=== PATIENT | female | born 1950 | race Caucasian/White ===

== ENCOUNTER 2018-05-16 10:36 | Outpatient (CLI) | payer OTHER, SELFPAY ==
--- NOTE | 2018-05-16 10:26 | DI.RAD_ITS ---
SYMPTOM/DIAGNOSIS: RECURRENT AND PERSISTENT LOW BACK PAIN LUMBAR SPINE: There are five lumbar type vertebral bodies. The vertebral bodies are well maintained in height. No disc space narrowing is seen. There are small endplate osteophytes, greatest at L 2-3 and L 3-4. No spondylolysis or spondylolisthesis is seen. There is mild spurring at both SI joints. There is spina bifida occulta at S 1. IMPRESSION: Mild degenerative changes.
== END 2018-05-16 10:56 ==
PROVIDERS: PCP Family Medicine; Visit Provider Student in an Organized Health Care Education/Training Program
DX: M54.5 Low back pain (principal); M47.816 Spondylosis without myelopathy or radiculopathy, lumbar region
CPT/HCPCS: 72110

== ENCOUNTER 2018-07-10 12:17 | Outpatient (REF) | payer OTHER, SELFPAY ==
--- NOTE | 2018-07-10 11:30 | PAPFT_PTH ---
PATIENT: Sanjuana Belle LOC: [facility] U#:[id number] AGE/SX: 67/F ROOM: RE07/10/[address]: Racquel Nevarez MD, DC : 1950 BED: DIS: 07/10/2018 SPEC #: [id number] RECD: 07/10/18 12:48 STATUS: GRAZYNA REQ #: [id number] BRANDEE: 07/10/18 11:[address]: Racquel Nevarez DEPT: [facility] Cytology RECD BY: Siobhan Dunn Tissues: 1 - CX/ENDOCX FOR PAP SMEARS Procedures: PAP THIN PREP/UVM Screening HPV DNA PROBE Comments: [id number]
== END 2018-07-10 12:37 ==
LOC: LBN 12:17
PROVIDERS: PCP Family Medicine; Visit Provider Family Medicine
DX: Z12.4 Encounter for screening for malignant neoplasm of cervix (principal); Z11.51 Encounter for screening for human papillomavirus (HPV)
CPT/HCPCS: 88142; 87624

== ENCOUNTER 2018-07-12 01:53 | Outpatient (CLI) | payer OTHER, SELFPAY ==
--- NOTE | 2018-07-12 12:30 | DI.MAMMO_ITS ---
SYMPTOM/DIAGNOSIS: SCREENING Z12.31 BILATERAL SCREENING MAMMOGRAM: Mammograms were interpreted according to the usual protocol including computer analysis with CAD system, tomosynthesis and C view imaging. Comparison is made with exams from 2013 through 2017. The breasts are composed of scattered fibroglandular densities, breast density category B. No suspicious masses or suspicious microcalcifications are seen. There has been no significant change. IMPRESSION: Category 1-B, negative mammogram. Yearly screening mammography is recommended. [facility] ASSESSMENT OF FINDINGS: Negative. Category 1. Patient will receive a letter notifying them of these results. BI-RADS category B. There are scattered areas of fibroglandular density.
== END 2018-07-12 02:13 ==
PROVIDERS: PCP Family Medicine; Visit Provider Family Medicine
DX: Z12.31 Encounter for screening mammogram for malignant neoplasm of breast (principal)
CPT/HCPCS: 77063; 77067

== ENCOUNTER 2020-09-28 12:20 | Observation (INO) | payer MEDICARE, SELFPAY ==
[2020-09-28] VITALS (7 sets, daily range): BP systolic 82–155; BP diastolic 37–77; PULSE 74–90; RESP 12–21; TEMP 36.1–36.6; O2SAT 95–99
--- NOTE | 2020-09-28 12:30 | DI.CT_ITS ---
EXAM: CT ABDOMEN PELVIS W CLINICAL HISTORY: RLQ pain, diarrhea. TECHNIQUE: Imaging Protocol: Axial computed tomography images with coronal and sagittal reformatted images were created and reviewed CONTRAST MATERIAL: Intravenous: Omnipaque 350 Contrast volume:100 ml Oral: no COMPARISON: US ABDOMEN ULTRASOUND (P) from 09/30/2010 US ABDOMEN ULTRASOUND (P) from 09/30/2010 FINDINGS: ABDOMEN: Lung Bases: Normal where visualized. Liver: Normal density. Simple cyst anterior. Gallbladder and biliary tract: No radiodense calculus or dilation. Pancreas: Normal density, no abnormal calcifications or inflammatory process. Spleen: Normal. Kidneys: Normal size, contour and axis. No radiodense stones or obstructive uropathy. No masses seen. Adrenal glands: No masses seen. Abdominal Aorta: Abdominal portion non-dilated. Minimal calcification. PELVIS: Bladder: Symmetric distention, no gross wall thickening. Bowel: Dilated appendix with surrounding stranding, consistent with acute appendicitis. No abscess, free air or free fluid. No obstruction. Normal quantity of stool. No evidence of diverticulosis. Peritoneal cavity: No ascites, collection or mesenteric inflammatory response. Bones: Mild degenerative changes. Reproductive organs: Normal size uterus. Thickened endometrium at 10 millimeters.3.7 centimeter righ t ovarian cyst. Lymph nodes: Unremarkable. Impression: Findings consistent with acute appendicitis. No perforation or abscess. 4.6 x 3.7 by 2.8 centimeter right ovarian cyst. Thickened endometrium for postmenopausal patient. P elvic ultrasound could be obtained for further evaluation. RADIATION DOSE DELIVERED: 839.46mGy.cm Total DLP DATA REPOSITORY: All CT scans at this facility are submitted to the National Radiology Data Registry (NRDR) Dose Index Registry (DIR) with the [employer] ([employer]). RADIATION OPTIMIZATION: All CT scans at this facility use at least one of these dose optimization te chniques: automated exposure control; mA and/or kV adjustment per patient size (includes targeted exa ms where dose is matched to clinical indication); or iterative reconstruction.
--- NOTE | 2020-09-28 12:40 | ED.GENADUL_ITS ---
Discharge Plan Disposition Condition: Good Discharge Details Chief Complaint: Abd Prob Admit Date/Time: 09/28/20 15:16 Admit Provider: Adi Fairchild Attending Provider: Adi Fairchild Primary Care Provider: Racquel Nevarez ED Provider: Priscilla Mathews Discharge Instructions Activity:: Activity as Tolerated Shower/Bathe:: 24 hours Discharge Orders Discharge Orders: Discharge Order (Routine); Ordered 09/28/20 Ordered By: Adi Fairchild Discharge Data Discharge Date/Time-TO BE ENTERED AT DEPARTURE: 09/28/20 19:00 Medical Decision Making Sanjuana Belle is a 70-year-old woman who presents to emergency department with 36 hours or so of right lower quadrant pain, worsening this morning, also with diarrhea. On exam patient is well and nontoxic-appearing. She has focal right lower quadrant tenderness to palpation with a positive Rovsing sign, no peritoneal signs. Concern for appendicitis, atypical diverticulitis, other. Exam/history at this time is not consistent with acute aortic pathology, ovarian or other gynecologic pathology, sepsis, acute coronary syndrome. Plan for IV placement, screening labs, UA, IV fluid hydration, CT abdomen/pelvis. Patient declines pain medication at this time. Labs reviewed, WBC 9.34, AG 8.9. CT consistent with acute appendicitis. I discussed appendicitis, cyst, and thickened endometrium on CT with patient, and also her over the phone. Dr. Fairchild of surgery contacted, who states he will be at bedside see the patient shortly. Dr. Fairchild has seen patient, requests Zosyn. Patient to go to the OR. Clinical impression: Appendicitis Disposition: [facility] inpatient Medical Records Medical records reviewed: Yes I reviewed the patient's medical records. Imaging Data Radiologic Study: Attestation: I personally reviewed and interpreted this imaging study as follows: Radiologist's impression: EXAM: CT ABDOMEN PELVIS W CLINICAL HISTORY: RLQ pain, diarrhea. TECHNIQUE: Imaging Protocol: Axial computed tomography images with coronal and sagittal reformatted images were created and reviewed CONTRAST MATERIAL: Intravenous: Omnipaque 350 Contrast volume:100 ml Oral: no COMPARISON: US ABDOMEN ULTRASOUND (P) from 09/30/2010 US ABDOMEN ULTRASOUND (P) from 09/30/2010 FINDINGS: ABDOMEN: Lung Bases: Normal where visualized. Liver: Normal density. Simple cyst anterior. Gallbladder and biliary tract: No radiodense calculus or dilation. Pancreas: Normal density, no abnormal calcifications or inflammatory process. Spleen: Normal. Kidneys: Normal size, contour and axis. No radiodense stones or obstructive uropathy. No masses seen. Adrenal glands: No masses seen. Abdominal Aorta: Abdominal portion non-dilated. Minimal calcification. PELVIS: Bladder: Symmetric distention, no gross wall thickening. Bowel: Dilated appendix with surrounding stranding, consistent with acute appendicitis. No abscess, free air or free fluid. No obstruction. Normal quantity of stool. No evidence of diverticulosis. Peritoneal cavity: No ascites, collection or mesenteric inflammatory response. Bones: Mild degenerative changes. Reproductive organs: Normal size uterus. Thickened endometrium at 10 millimeters.3.7 centimeter right ovarian cyst. Lymph nodes: Unremarkable. Impression: Findings consistent with acute appendicitis. No perforation or abscess. 4.6 x 3.7 by 2.8 centimeter right ovarian cyst. Thickened endometrium for postmenopausal patient. Pelvic ultrasound could be obtained for further evaluation. Lab Data Lab results reviewed: Yes I reviewed the patient's lab results. HPI General Mode of arrival: ambulatory . Date/Time Provider Initiated Documentation: 09/28/20 12:22 . Limitations to Documentation: no limitations . Information obtained by: patient, RN notes reviewed and old records reviewed . HPI Narrative: Sanjuana Belle is a 70-year-old woman with history of seizures presenting to emergency department with abdominal pain. Patient reports that she woke up at 12:30 in the morning on 09/27/20 with right lower quadrant pain. Patient reports that pain has been constant since onset, and worsened significantly this morning. Patient reports that pain has improved somewhat after period of worsening today, though is still present. She reports that since onset of pain she has had watery diarrhea, yellow in color. No dark black or bloody diarrhea. She reports that she has mild lower back pain at this time as well, points to L5-S1 level bilaterally, reports this is not unusual for her. She denies any other pain, fevers, vomiting, numbness, weakness, shortness of breath, cough, rash, dysuria. Patient reports that she has eaten only a banana today though denies decrease in appetite. Patient reports that she has been eating less than usual since yesterday because she has tended to have diarrhea after eating since onset of symptoms. Was previously well in her usual state of health. She reports no history of diverticulosis on prior colonoscopies. She reports history of irritable bowel syndrome that has been well controlled with diet. Patient states that she drinks 2 glasses or so of wine a day, denies tobacco/nicotine use, recreational drug use. Denies allergies. Related Data Home Medications Medication Instructions Recorded Confirmed multivitamin with minerals [One 1 ea PO DAILY 01/25/13 09/28/20 Daily Plus Minerals] vitamin E 1 cap PO DAILY 02/04/13 09/28/20 ascorbic acid (vitamin C) 500 mg 500 mg PO DAILY 07/10/18 09/28/20 tablet calcium carbonate 600 mg(1,500 1 tab PO DAILY tab 07/10/18 09/28/20 mg)-vitamin D3 800 unit chewable tablet chlorpheniramine maleate 4 mg 4 mg PO Q8H PRN 07/15/19 09/28/20 tablet naproxen sodium 220 mg capsule 220 mg PO DAILY PRN cap 07/15/19 09/28/20 triamcinolone acetonide 0.1 % 1 applic TP BID #80 gm 07/15/19 09/28/20 topical cream estradiol 2 gm VG .twice weekly #42.5 gm 08/13/19 09/28/20 Carbatrol 300 mg capsule, extended 300 mg PO BID #180 tab-cap NS 08/11/20 09/28/20 release oxycodone-acetaminophen 1 tab PO Q4H PRN PRN #20 tab NS 09/28/20 Previous Rx's Medication Instructions Recorded triamcinolone acetonide 0.1 % 1 applic TP BID #80 gm 07/15/19 topical cream estradiol 2 gm VG .twice weekly #42.5 gm 08/13/19 Carbatrol 300 mg capsule, extended 300 mg PO BID #180 tab-cap NS 08/11/20 release oxycodone-acetaminophen 1 tab PO Q4H PRN PRN #20 tab NS 09/28/20 Allergies Allergy/AdvReac Type Severity Reaction Status Date / Time alprazolam Allergy Unknown Verified 09/28/20 12:29 erythromycin base Allergy Verified 09/28/20 12:29 General Stated Complaint: Abd Prob LORENZO: 3 Review of Systems Narrative: Constitutional: denies fevers Eyes: denies eye pain ENT: denies ear pain, dental pain, sore throat Cardiovascular: denies chest pain, edema Respiratory: denies SOB, cough GI: denies vomiting, constipation, reports abdominal pain, diarrhea as per HPI : denies flank pain, dysuria MSK: denies neck pain, arthralgias, myalgias, reports lower back pain bilaterally Skin: denies rash Neuro: denies headaches, numbness, weakness [facility] Medical History Acute low back pain without sciatica 02/22/16 Atrophic vaginitis Back muscle spasm 02/22/16 Basal cell carcinoma of face (12/08/14) Basal cell carcinoma of skin (05/12/14) 05/12/14 RODRIGUEZ; LEFT SIDE OF FOREHEAD Basal cell carcinoma of skin of other parts of face (08/21/17) LEFT FOREHEAD 09/25/17 Elevated blood pressure reading 02/06/14 Family history of colonic polyps Loose body of left knee (12/13/17) Malignant neoplasm of skin basal cell-right chest basal cell-right arm x 2 Neoplasm of skin 05/12/14 Osteopenia DEXA: -1.0/-1.3 Seizure (02/04/13) 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 Brother No problems noted. Paternal Grandfather , AGE 74 Heart disease Maternal Grandmother , BLOOD CLOT at age 59. No problems noted. Paternal Grandmother , KIDNEY DISEASE at age 41. No problems noted. Uncle Bone cancer Son Glioblastoma Son No problems noted. Daughter No problems noted. Maternal Grandfather , age 68 No problems noted. Social History Smoking/Tobacco Use Status: Never Smoking risk assessment performed?: Yes Alcohol Intake: current Alcohol Intake frequency: 0-2 drinks per day Alcohol type: beer and wine Drug use: Never Substance use type: does not use Counseling given: No Counseling provided: none Caregiver/Support person: No Household members: spouse Housing: house Communication Needs: None Pets and animals: Yes Pets and animals: cat(s) Sexually active: Yes Do you think of yourself as: straight/heterosexual Current gender identity: female What is your relationship status?: How often do you talk on the phone with friends or family?: three or more times per week How often do you get together with friends or relatives?: decline to answer How often do you attend worship or scientology services?: decline to answer Do you belong to any clubs or organized social groups?: decline to answer Panel score (0-1 are the most socially isolated patients): 2 What type of physical activity do you participate in: walking and other Details: recumbent bike Duration: 60-90 minutes/day Frequency: daily Lurdes/Anabaptist: Druze Special lurdes needs: No Seatbelt use: always Helmet use: No Drive intox or ride w/intox transporter driver: No Do you feel safe at home: Yes Do you feel safe in your relationship?: Yes Exam Narrative Exam Narrative: Constitutional: well and [id number], pleasant, conversing normally HENT: head atraumatic/normocephalic/normal inspection, mucous membranes moist Eyes: conjunctiva normal, sclera normal, pupils 3mm b/l Neck: no stridor, normal ROM, trachea midline Resp: normal work of breathing, speaking in full sentences Cardio: normal rate, normal rhythm GI: abdomen soft, tender to palpation right lower quadrant, positive Rovsing sign, no rebound, no guarding, no distention Back: normal inspection, no rash Skin: warm, dry, normal color, no rash Neuro: alert, not altered, grossly non-focal, normal tone Ext: no edema Psych: normal mood, normal affect, normal behavior Course Vital Signs Vital signs: Vital Signs Temperature 36.6 C 09/28/20 12:26 Pulse 89 09/28/20 12:26 Respiratory Rate 18 09/28/20 12:26 Blood Pressure 155/77 H 09/28/20 12:26 Pulse Oximetry 99 03/08/21 12:26 Temperature 36.6 C 09/28/20 12:26 Temperature Source Temporal Artery Scan 09/28/20 12:26 Pulse 89 09/28/20 12:26 Respiratory Rate 18 09/28/20 12:26 Respiratory Effort Non-Labored 09/28/20 12:32 Blood Pressure 155/77 H 09/28/20 12:26 Blood Pressure Position Sitting 09/28/20 12:26 Pulse Oximetry 99 09/28/20 12:26 Oxygen Delivery Method Room Air 09/28/20 12:26 Oxygen Flow Rate 0 09/28/20 12:26 Pain Level 6 09/28/20 12:26
[2020-09-28] MEDS: Normal Saline 1,000 ML 1000 ML IV (13:00)
[2020-09-28 13:07] LABS: Abs Immature Grans 0.08 10^3/uL (0.0-0.06); Absolute Basophil Count 0.03 10^3/uL (0.0-0.2); Absolute Eosinophil Count 0.04 10^3/uL (0.0-0.7); Absolute Lymphocyte Count 1.41 10^3/uL (1.2-3.4); Absolute Neutrophil Count 7.18 10^3/uL (1.2-6.7); Basophils % 0.3; Eosinophils % 0.4; HCT 42.3 % (36.0-46.0); HGB 14.3 g/dL (11.2-15.7); Immature Grans % 0.9; Lymphocytes % 15.1; MCH 33.6 pg (27.0-33.0); MCHC 33.8 % (32.0-36.0); MCV 99.5 fL (80-95); MPV 10.5 fL (8.0-11.0); Monocytes % 6.4; Neutrophils % 76.9; Nucleated RBC 0 %; Platelet Count 153 10^3/uL (130-400); RBC 4.25 10^6/uL (3.93-5.22); RDW 12.3 % (11.7-14.6); RDW-SD 45.1 fL; WBC 9.34 10^3/uL (4.4-10.8)
[2020-09-28 13:08] LABS: Bilirubin Negative (Negative); Blood Negative (Negative); Clarity Clear (Clear); Glucose Negative (Negative); Ketones Negative (Negative); Leukocyte Esterase Negative (Negative); Nitrite Negative (Negative); Urobilinogen 0.2 EU/dL (Up TO 0.2)
[2020-09-28 13:20] LABS: ALT 23 U/L (14-59); AST 18 U/L (15-37); Albumin 3.6 g/dL (3.4-5.0); Alkaline Phosphatase 87 U/L (46-116); Anion Gap 8.9 mmol/L (3-11); BUN 12 mg/dL (7-18); Bilirubin, Total 0.6 mg/dL (0.2-1.0); CO2 28.1 mmol/L (21.0-32.0); Calcium 9.6 mg/dL (8.5-10.1); Chloride 97 mmol/L (98-107); Estimated GFR 55.14 (mL/min/1.73m2); Glucose 95 mg/dL (74-106); Lipase 65 U/L (73-393); Potassium 3.5 mmol/L (3.5-5.1); Sodium 134 mmol/L (136-145); Total Protein 8.3 g/dL (6.4-8.2)
[2020-09-28] MEDS: Omnipaque 350 MG/ML 100 ML BTL IJ (14:14)
[2020-09-28] MEDS: Normal Saline - Diluent 50 ML VIAL IV (14:15)
[2020-09-28] MEDS: Normal Saline Flush 10 ML SYR IVP (14:17)
[2020-09-28] MEDS: PIPERACILLIN/TAZO 3.375 GM in Normal Saline 50 ML IVPB (15:35)
--- NOTE | 2020-09-28 15:51 | W.PM.HP.N ---
Date of service: 09/28/20 Time of Service: 15:16 Assessment and Plan Assessment and plan (1) Acute appendicitis: Start date: 09/28/20 Start time: 15:00 Status: Acute Assessment and plan: 1) admit as surgical outpatient 2) IV zosyn 3) rapid covid test 4) IV analgesia PRN 5) to OR for emergency lap appy, possible open. Bleeding and leaking are potential complications. Patient is in agreement with the plan of care. Will proceed to the OR. Qualifiers: Acute appendicitis type: with localized peritonitis History of Present Illness History of Present Illness Chief Complaint: abdominal pain Narrative: patient with abdominal pain. began as upset stomach early monday morning. pain worsening and localizing in the lower abdomen. + association with diarrhea, no n/v. No prior history. nothing has made it better or worse. CT shows acute appendicitis. Review of Systems Constitutional Constitutional: Denies chills and Denies weight loss Eyes Eyes: Denies loss of vision and Denies tunnel vision ENT Ears, Nose, Mouth, and Throat: Denies dysphagia and Denies hearing loss Cardiovascular Cardiovascular: Denies chest pain and Denies irregular heart rhythm Respiratory Respiratory: Denies cough and Denies wheezing Gastrointestinal Gastrointestinal: Reports abdominal pain, Denies dysphagia and Reports diarrhea Genitourinary Genitourinary: Denies difficulty voiding and Denies urinary incontinence Musculoskeletal Musculoskeletal: Denies abnormal gait and Reports back pain Integumentary/Breasts Skin/Breast: Denies skin swelling and Denies skin ulcer Neurologic Neurologic: Denies abnormal gait and Denies loss of vision Psychiatric Psychiatric: Denies anxiety and Denies depression Hematologic/Lymphatic Hematologic/Lymphatic: Denies easy bleeding and Denies easy bruising Allergic/Immunologic Allergic/Immunologic: Denies wheezing [facility] Medical History Acute low back pain without sciatica 02/22/16 Atrophic vaginitis Back muscle spasm 02/22/16 Basal cell carcinoma of face (12/08/14) Basal cell carcinoma of skin (05/12/14) 05/12/14 RODRIGUEZ; LEFT SIDE OF FOREHEAD Basal cell carcinoma of skin of other parts of face (08/21/17) LEFT FOREHEAD 09/25/17 Elevated blood pressure reading 02/06/14 Family history of colonic polyps Loose body of left knee (12/13/17) Malignant neoplasm of skin basal cell-right chest basal cell-right arm x 2 Neoplasm of skin 05/12/14 Osteopenia DEXA: -1.0/-1.3 Seizure (02/04/13) 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 [place] 2007;[facility] H/O arthroscopy of left knee 07/24/02 H/O section Skin Cancer Removal 09/25/17 LEFT FOREHEAD (BASAL CELL) Family History (Updated 08/17/20 @ 15:36 by Crys Mijares) Mother , AGE 77 Multiple myeloma Father , AGE 85 Heart disease CHF Prostate cancer Sister , age 56 Essential hypertension Glioblastoma Sister No problems noted. Brother No problems noted. Paternal Grandfather , AGE 74 Heart disease Maternal Grandmother , BLOOD CLOT at age 59. No problems noted. Paternal Grandmother , KIDNEY DISEASE at age 41. No problems noted. Uncle Bone cancer Son Glioblastoma Son No problems noted. Daughter No problems noted. Maternal Grandfather , age 68 No problems noted. Social History Smoking/Tobacco Use Status: Never Smoking risk assessment performed?: Yes Alcohol Intake: current Alcohol Intake frequency: 0-2 drinks per day Alcohol type: beer and wine Drug use: Never Substance use type: does not use Counseling given: No Counseling provided: none Caregiver/Support person: No Household members: spouse Housing: house Communication Needs: None Pets and animals: Yes Pets and animals: cat(s) Sexually active: Yes Do you think of yourself as: straight/heterosexual Current gender identity: female What is your relationship status?: How often do you talk on the phone with friends or family?: three or more times per week How often do you get together with friends or relatives?: decline to answer How often do you attend mu-ism or sikhism services?: decline to answer Do you belong to any clubs or organized social groups?: decline to answer Panel score (0-1 are the most socially isolated patients): 2 What type of physical activity do you participate in: walking and other Details: recumbent bike Duration: 60-90 minutes/day Frequency: daily Lurdes/Christianity: Advent Special lurdes needs: No Seatbelt use: always Helmet use: No Drive intox or ride w/intox special needs bus driver: No Do you feel safe at home: Yes Do you feel safe in your relationship?: Yes Meds Home Medications and Allergies Allergies Allergy/AdvReac Type Severity Reaction Status Date / Time alprazolam Allergy Unknown Verified 09/28/20 12:29 erythromycin base Allergy Verified 09/28/20 12:29 Home Medications Medication Instructions Recorded Confirmed Type multivitamin with minerals [One 1 ea PO DAILY 01/25/13 09/28/20 History Daily Plus Minerals] vitamin E 1 cap PO DAILY 02/04/13 09/28/20 History ascorbic acid (vitamin C) 500 mg 500 mg PO DAILY 07/10/18 09/28/20 History tablet calcium carbonate 600 mg(1,500 1 tab PO DAILY tab 07/10/18 09/28/20 History mg)-vitamin D3 800 unit chewable tablet chlorpheniramine maleate 4 mg 4 mg PO Q8H PRN 07/15/19 09/28/20 History tablet naproxen sodium 220 mg capsule 220 mg PO DAILY PRN cap 07/15/19 09/28/20 History triamcinolone acetonide 0.1 % 1 applic TP BID #80 gm 07/15/19 09/28/20 Rx topical cream estradiol 2 gm VG .twice weekly #42.5 gm 08/13/19 09/28/20 Rx Carbatrol 300 mg capsule, extended 300 mg PO BID #180 tab-cap NS 08/11/20 09/28/20 Rx release Exam Narrative Exam Narrative: NAD RRR S1S2 CTA B S/ND/TTP RLQ, + voluntary guarding No jaundice/icterus No masses/herniae Mucus membranes moist Results Labs Result diagrams: 09/28/20 12:56 09/28/20 12:56 Labs: Laboratory Results - last 24 hr 09/28/20 09/28/20 09/28/20 12:44 12:56 12:56 WBC 9.34 RBC 4.25 Hgb 14.3 Hct 42.3 MCV 99.5 H MCH 33.6 H MCHC 33.8 RDW 12.3 Plt Count 153 MPV 10.5 Immature Gran % 0.9 Neutrophils % 76.9 Lymphocytes % 15.1 Monocytes % 6.4 Eosinophils % 0.4 Basophils % 0.3 Nucleated RBC % 0 Absolute Neutrophils 7.18 H Absolute Lymphocytes 1.41 Absolute Monocytes 0.60 Absolute Eosinophils 0.04 Absolute Basophils 0.03 Sodium 134 L Potassium 3.5 Chloride 97 L Carbon Dioxide 28.1 Anion Gap 8.9 BUN 12 Creatinine 1.0 Estimated GFR/1.73 m2 55.14 Glucose 95 Calcium 9.6 Total Bilirubin 0.6 AST 18 ALT 23 Alkaline Phosphatase 87 Total Protein 8.3 H Albumin 3.6 Lipase 65 Urine Color Yellow Urine Clarity Clear Urine pH 7.0 Ur Specific [place] 1.010 Urine Protein Negative Urine Ketones Negative Urine Blood Negative Urine Nitrite Negative Urine Bilirubin Negative Urine Urobilinogen 0.2 Ur Leukocyte Esterase Negative Urine Glucose Negative COVID-19 Source 09/28/20 15:20 WBC RBC Hgb Hct MCV MCH MCHC RDW Plt Count MPV Immature Gran % Neutrophils % Lymphocytes % Monocytes % Eosinophils % Basophils % Nucleated RBC % Absolute Neutrophils Absolute Lymphocytes Absolute Monocytes Absolute Eosinophils Absolute Basophils Sodium Potassium Chloride Carbon Dioxide Anion Gap BUN Creatinine Estimated GFR/1.73 m2 Glucose Calcium Total Bilirubin AST ALT Alkaline Phosphatase Total Protein Albumin Lipase Urine Color Urine Clarity Urine pH Ur Specific [place] Urine Protein Urine Ketones Urine Blood Urine Nitrite Urine Bilirubin Urine Urobilinogen Ur Leukocyte Esterase Urine Glucose COVID-19 Source Nasopharyx Last Vital Signs Temp 97.9 F 09/28/20 12:26 Pulse 90 09/28/20 14:39 Resp 18 09/28/20 14:39 BP 148/75 H 09/28/20 14:39 Pulse Ox 97 09/28/20 14:39 COVID-19 Screening Have you, or household traveled for leisure in last 14 days?: No Had IN PERSON contact w/suspected or confirmed C-19 person: No
[2020-09-28 17:26] LABS: COVID-19 PCR Negative (Negative); Influenza A PCR Negative (Negative); Influenza B PCR Negative (Negative); RSV PCR Negative (Negative)
[2020-09-28] MEDS: Lactated Ringers 1,000 ML 30 ML IV (17:35)
[2020-09-28] MEDS: Lidocaine 1% Multi-Dose 50 ML VIAL (18:07)
--- NOTE | 2020-09-28 18:35 | APP_PTH ---
PATIENT: Sanjuana Belle LOC: U#:[id number] AGE/SX: 70/F ROOM: 214 RE09/28/[address]: Adi Fairchild MD : 1950 BED: A DIS: 09/28/2020 SPEC #: [id number] RECD: 09/29/20 12:24 STATUS: GRAZYNA REJean Marie #: [id number] BRANDEE: 09/28/20 18:[address]: Adi Fairchild DEPT: Surgical Specimen RECD BY: Siobhan Dunn ENTERED: 09/29/20 12:24 SP TYPE: Appendix OTHR DR: Racquel Nevarez MD, DC Tissues: 1 - APPENDIX NOT INCIDENTAL Procedures: GROSS AND MICRO LEVEL 3 Comments: [id number]
--- NOTE | 2020-09-28 18:56 | W.PM.OP ---
Date of service: 09/28/20 Time of Service: 17:31 Operative Note Operative Note DATE OF PROCEDURE: 09/28/20 PRE-OP DIAGNOSIS: acute appendicitis with peritonitis POST-OP DIAGNOSIS: same PROCEDURE: laparoscopic emergency appendectomy SURGEON: Adi Fairchild ANESTHESIA TYPE: General LMA/ETT Refer to Anesthesia Record ESTIMATED BLOOD LOSS: 30 PATHOLOGY: other (appendix) COMPLICATIONS: None Patient was transported to: PACU Patient's condition: stable Indications: CT c/w acute appendicitis Findings: acute appendicitis Procedure Description: supine, patient prepped/draped, timeout performed veress performed at [place] with negative saline and 5mmHg opening Optiview used at supraumbilical 1.5cm incision, transverse no entry or veress injury seen inspection revealed inflammatory changes in RLQ. Benign-appearing ovarian cyst seen in LRQ. 5mm ports placed in LLQ and suprapubically under direct vision Cecum identified and followed proximally and base of appendix identified. appendix dissected free of the surrounding tissue and TI. inflamed mesoappendix divided to the level of the base with ligasure. endogia stapler placed across the base and fired. staple line intact and dry appendix placed in bag and removed from abdomen final inspection revealed no abnormality ports removed under direct vision and the abdomen was desufflated. transfascial incision closed with 0 vicryl figure of 8 skin closed with 4-0 monocryl. patient awakened and taken to PACU in stable condition. all counts correct.
== END 2020-09-28 21:57 | disposition home or self-care (01) ==
LOC: ER 17:12 → SUR 17:43 → ER 20:08 → MS 09-30 08:35
PROVIDERS: Emergency Medicine; Admitting Provider Surgery; Emergency Provider Student in an Organized Health Care Education/Training Program; PCP Family Medicine; Visit Provider Surgery
PROC: 0DTJ4ZZ Resection of Appendix, Percutaneous Endoscopic Approach (ICD-10-PCS; CPT 44970; principal; 2020-09-28 15:30)
DX: K35.30 Acute appendicitis with localized peritonitis, without perforation or gangrene (principal); M54.5 Low back pain; M85.80 Other specified disorders of bone density and structure, unspecified site; G40.909 Epilepsy, unspecified, not intractable, without status epilepticus
CPT/HCPCS: 44970; 36415; 80053; 83690; 96361; 96365; 99235; 99285; 74177; 81003; 85025; 88304; J1100; J2250; J2405; J2543; J2704; J3010; J3490

== ENCOUNTER → 2020-10-08 11:25 | Outpatient (BNVA) | payer MEDICARE, SELFPAY | PROVIDERS: PCP Family Medicine; Referring Provider Family Medicine; Visit Provider Surgery | DX: Z48.815 Encounter for surgical aftercare following surgery on the digestive system (principal); N83.201 Unspecified ovarian cyst, right side; Z90.49 Acquired absence of other specified parts of digestive tract ==

== ENCOUNTER 2020-11-03 01:40 | Outpatient (CLI) | payer MEDICARE, SELFPAY ==
--- NOTE | 2020-11-03 07:15 | DI.US_ITS ---
EXAM: US PELVIS TRANSVAGINAL CLINICAL HISTORY: F/U RT OVARIAN CYST,endometrial stripe,R93.89,N83.201. TECHNIQUE: Transabdominal and transvaginal pelvic ultrasound was performed using standard protocol. COMPARISON: CT CT ABDOMEN PELVIS W from 09/28/2020 FINDINGS: KIDNEYS: Kidneys are symmetric in size. No evidence of renal calculi. No evidence of hydronephrosis. No renal mass or cyst identified. UTERUS: Position: Anteverted. Size: 4.0 long by 2.4 AP by 4.0 transverse cm Endometrium: 0.7 cm. Mildly thickened in this postmenopausal patient. There is fluid seen within the endometrial canal. Myometrium: Unremarkable. Cervix: Unremarkable. OVARIES: Right: 5.3 x 2.4 x 3.4 cm Cyst or mass: There is a 3.6 x 3.1 x 5.2 cm cyst on the right ovary. Left: Not visualized transabdominally or transvaginally. DOPPLER: Color: Symmetric and uniform flow to the right ovary. No hyperemia. Duplex: Normal ovarian arterial waveform visualized. CUL-DE-SAC: Free fluid: None. Other: None. IMPRESSION: 1. Normal sonographic appearance of the kidneys. 2. Mildly thickened endometrial stripe with fluid within the endometrial canal. 3. 5.2 cm right ovarian cyst. Follow-up is recommended in this postmenopausal patient. DATA REPOSITORY:
== END 2020-11-03 02:00 ==
PROVIDERS: PCP Family Medicine; Visit Provider Obstetrics & Gynecology
DX: N83.291 Other ovarian cyst, right side (principal); R93.89 Abnormal findings on diagnostic imaging of other specified body structures
CPT/HCPCS: 76830; 76856

== ENCOUNTER 2020-11-05 03:19 | Outpatient (CLI) | payer MEDICARE, SELFPAY ==
[2020-11-06 11:45] LABS: CA 125 15 U/mL (<30)
== END 2020-11-05 03:20 | disposition home or self-care (01) ==
LOC: LBO 03:19
PROVIDERS: PCP Family Medicine; Visit Provider Obstetrics & Gynecology
DX: R19.09 Other intra-abdominal and pelvic swelling, mass and lump (principal)
CPT/HCPCS: 36415; 86304; 80156; 85025

== ENCOUNTER 2021-01-18 03:28 | Outpatient (CLI) | payer MEDICARE, SELFPAY ==
[2021-01-18 10:46] LABS: HCT 40.6 % (36.0-46.0); HGB 13.7 g/dL (11.2-15.7); MCH 33.2 pg (27.0-33.0); MCHC 33.7 % (32.0-36.0); MCV 98.3 fL (80-95); MPV 10.7 fL (8.0-11.0); Platelet Count 201 10^3/uL (130-400); RBC 4.13 10^6/uL (3.93-5.22); RDW 12.7 % (11.7-14.6); RDW-SD 46.2 fL; WBC 5.08 10^3/uL (4.4-10.8)
[2021-01-18 11:39] LABS: Source Nasal/Nares
[2021-01-18 14:11] LABS: COVID-19 PCR Negative (Negative)
== END 2021-01-18 03:29 | disposition home or self-care (01) ==
LOC: LBO 03:28
PROVIDERS: PCP Family Medicine; Visit Provider Obstetrics & Gynecology
DX: N83.292 Other ovarian cyst, left side (principal); N83.291 Other ovarian cyst, right side; Z20.822 Contact with and (suspected) exposure to COVID-19; Z01.818 Encounter for other preprocedural examination; Z01.812 Encounter for preprocedural laboratory examination
CPT/HCPCS: 36415; 85027; 86850; 86900; 86901; 87635

== ENCOUNTER 2021-01-20 07:16 | Day surgery (SDC) | payer MEDICARE, SELFPAY ==
[2021-01-20] VITALS (7 sets, daily range): BP systolic 84–141; BP diastolic 36–84; PULSE 47–78; RESP 12–24; TEMP 35.9–36.6; O2SAT 95–98; BMI 21.5
[2021-01-20] MEDS: Lactated Ringers 1,000 ML 125 ML IV (08:05)
--- NOTE | 2021-01-20 08:17 | ANES.PREOP_ITS ---
General Info Date of Service Date Performed: 01/20/21 Height: 5 ft 7 in Weight: 62.5 kg Body Mass Index (BMI): 21.5 Surgical Procedure: Operation Date: 01/20/21 09:10 Proposed Procedures Side Surgeon p Dilation & Curettage with Hysteroscopy DO jessie Baig Oophorectomy Laparoscopic Right DO jessie Baig possible laparotomy Dorota Hampton DO Meds Allergies and Home Medications Allergies Allergy/AdvReac Type Severity Reaction Status Date / Time alprazolam AdvReac Unknown pt.states Verified 01/20/21 07:39 it made me loopy erythromycin base AdvReac Diarrhea Verified 01/20/21 07:39 Home Medication Medication Instructions Recorded multivitamin with minerals [One 1 ea PO DAILY 01/25/13 Daily Plus Minerals] vitamin E 1 cap PO DAILY 02/04/13 ascorbic acid (vitamin C) 500 mg 500 mg PO DAILY 07/10/18 tablet calcium carbonate 600 mg(1,500 1 tab PO DAILY tab 07/10/18 mg)-vitamin D3 800 unit chewable tablet chlorpheniramine maleate 4 mg 4 mg PO Q8H PRN 07/15/19 tablet triamcinolone acetonide 0.1 % 1 applic TP BID #80 gm 07/15/19 topical cream estradiol 2 gm VG .twice weekly #42.5 gm 08/13/19 Carbatrol 300 mg capsule, extended 300 mg PO BID #180 tab-cap NS 08/11/20 release acetaminophen 650 mg 650 mg PO Q12H 01/18/21 tablet,extended release Current Visit Medications: Current Medications Generic Name Dose Route Start Last Admin Trade Name Freq PRN Reason Stop Dose Admin Ringer's Solution 1,000 mls @ 125 mls/hr 01/20/21 06:00 01/20/21 08:05 IV 02/18/21 23:59 125 mls/hr INFUSION PEPE Administration IV Miscellaneous Supplies 1 each 01/20/21 06:00 Iv Access IV 02/18/21 23:59 DIRECTED PEPE Sodium Chloride 0 ml 01/20/21 06:00 Normal Saline Flush 10 Ml Syr IV 02/18/21 23:59 PRN PRN Sodium Chloride 0 ml 01/20/21 06:00 Normal Saline 10 Ml Vial IJ 02/18/21 23:59 DIRECTED PRN Sterile Water 0 ml 01/20/21 06:00 Water,Injection,Sterile 10 Ml Vial IJ 02/18/21 23:59 DIRECTED PRN [facility] Active Problems Active Problems: Problem Status Onset Code Actinic keratitis 05/12/14 H16.139 Annual physical exam 05/12/15 Z00.00 S/P appendectomy Z90.49 Ovarian cyst, right N83.201 Thickened endometrium R93.89 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 Squamous cell carcinoma in situ 12/08/14 D09.9 Seizure 02/04/13 R56.9 Osteopenia M85.80 Malignant neoplasm of skin C44.90 Basal cell carcinoma of skin of other parts of face 08/21/17 C44.319 Basal cell carcinoma of skin 05/12/14 C44.91 Basal cell carcinoma of face 12/08/14 C44.310 Atrophic vaginitis N95.2 Medical History Medical History Acute low back pain without sciatica 02/22/16 Atrophic vaginitis Back muscle spasm 02/22/16 Basal cell carcinoma of face (12/08/14) Basal cell carcinoma of skin (05/12/14) 05/12/14 RODRIGUEZ; LEFT SIDE OF FOREHEAD Basal cell carcinoma of skin of other parts of face (08/21/17) LEFT FOREHEAD 09/25/17 Elevated blood pressure reading 02/06/14 Family history of colonic polyps Loose body of left knee (12/13/17) Malignant neoplasm of skin basal cell-right chest basal cell-right arm x 2 Neoplasm of skin 05/12/14 Osteopenia DEXA: -1.0/-1.3 Seizure (02/04/13) 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 Has not had a seizure since. Squamous cell carcinoma in situ (12/08/14) Squamous cell carcinoma in situ of skin (05/12/14) 05/12/14; MID FOREHEAD Thickened endometrium Surgical History Surgical History Arthroplasty of knee (~2002) bilateral section Colonoscopy - [facility] [place] 2007;[facility] H/O arthroscopy of left knee 07/24/02 H/O section Hx of appendectomy 10/11 Skin Cancer Removal 09/25/17 LEFT FOREHEAD (BASAL CELL) Tobacco Smoking/Tobacco Use Status: Never Passive smoking exposure: Yes Alcohol Alcohol Intake: current Alcohol intake frequency: 0-2 drinks per day Alcohol type: beer and wine Substance Use Substance use: Never Substance use type: does not use Counseling given: No Counseling provided: none Vital Signs and Lab Results Vital Signs Most Recent Vital Signs in EMR: Most Recent Vital Signs Temp Pulse Resp BP Pulse Ox 36.6 C 78 16 141/84 H 97 01/20/21 07:41 01/20/21 07:41 01/20/21 07:41 01/20/21 07:41 01/20/21 07:41 Lab Results Blood Type / Crossmatch: Patient ABO/Rh A Positive 01/18/21 09:59 01/18/21 Antibody Screen NEGATIVE 01/18/21 09:59 01/18/21 Complete Blood Count: White Blood Count 5.08 10^3/uL (4.4-10.8) 01/18/21 09:59 01/18/21 Red Blood Count 4.13 10^6/uL (3.93-5.22) 01/18/21 09:59 01/18/21 Hemoglobin 13.7 g/dL (11.2-15.7) 01/18/21 09:59 01/18/21 Hematocrit 40.6 % (36.0-46.0) 01/18/21 09:59 01/18/21 Platelet Count 201 10^3/uL (130-400) 01/18/21 09:59 01/18/21 Complete Metabolic Panel: No Data to Display Liver Function Panel: No Data to Display Coagulation Panel: No Data to Display Cardiac Panel: No Data to Display Arterial Blood Gas: No Data to Display Venous Blood Gas: No Data to Display Pancreas Panel: No Data to Display Thyroid Panel: No Data to Display Infectious Disease: Coronavirus (COVID-19)(PCR) Negative (Negative) 01/18/21 10:09 01/18/21 Coronavirus 2019 Source Nasal/Nares 01/18/21 10:09 01/18/21 Blood Cultures: No Data to Display Toxicology Panel: No Data to Display Anesthesia Assessment and Plan Anesthesia History Personal History: No History of Anesthesia Complications Family History: No Family History of Anesthesia Complications Exercise Tolerance Exercise Tolerance: Metabolic Equivalents>4 Pertinent Negatives Pertinent Negatives: No Symptoms of GERD, No Major Cardiovascular Symptoms or Complaints and No Major Pulmonary Symptoms or Complaints Cardiac & Pulmonary Exam Cardiac Exam: Normal S1/S2 Heart Sounds Pulmonary Exam: Clear Bilateral Breath Sounds Airway Exam Known Difficult Airway: No Mallampati Class: 2 Mouth Opening: Narrow (< 3cm) Thyromental Distance: Greater than 3 cm Neck Range of Motion: Full ROM Neck Circumference: Normal Teeth Condition: Normal Dentition ASA Classification ASA Score: ASA 2 Emergency Case?: No NPO Status NPO Status: NPO Clears >2 hours, Solids >8 hours Anesthesia Plan Resuscitation Status: Full Code Anesthesia Technique: General Anesthesia Airway Planned: Endotracheal Tube Monitors Used: Standard Monitors
[2021-01-20] MEDS: Bupivacaine 0.25% Pres-Free 30 ML VIAL (09:40)
--- NOTE | 2021-01-20 10:00 | PAPNONF_PTH ---
PATIENT: Sanjuana Belle LOC: [facility] U#:[id number] AGE/SX: 70/F ROOM: RE01/20/[address]: Dorota Hampton DO : 1950 BED: DIS: 01/20/2021 SPEC #: [id number] RECD: 01/20/21 12:50 STATUS: GRAZYNA REQ #: [id number] BRANDEE: 01/20/21 10:[address]: Dorota Hampton DEPT: [facility] Cytology RECD BY: Siobhan Dunn ENTERED: 01/20/21 12:51 SP TYPE: ASHLEY LYMAN DR: Racquel Nevarez MD, DC Tissues: 1 - BODY FLUID CYTO(NOT S/U/N/EM)[facility] Procedures: BODY FLUID CYTO(NOT SPU/UR/NIP/ENDOM)[facility] Comments: [id number] (TOTAL VOLUME = 20 ml's, SENT FRESH)
--- NOTE | 2021-01-20 10:00 | OVAR_PTH ---
PATIENT: Sanjuana Belle LOC: [facility] U#:[id number] AGE/SX: 70/F ROOM: RE01/20/[address]: Dorota Hampton DO : 1950 BED: DIS: 01/20/2021 SPEC #: [id number] RECD: 01/20/21 12:04 STATUS: CARRINj RE #: [id number] BRANDEE: 01/20/21 10:[address]: Dorota Hampton DEPT: Surgical Specimen RECD BY: Siobhan Dunn ENTERED: 01/20/21 12:05 SP TYPE: DALILA LYMAN DR: Racquel Nevarez MD, DC Tissues: 1 - OVARY NOT TUMOR W OR W/O TUBES 2 - OVARY NOT TUMOR W OR W/O TUBES 3 - ENDOCERVICAL BX/CURRETTE 4 - ENDOMETRIUM BX/CURRETTE Procedures: SPECIAL STAIN 2 GROSS AND MICRO LEVEL 4 Comments: [id number]
[2021-01-20] MEDS: DOXYCYCLINE 100 MG in Normal Saline 100 ML IVPB (10:12)
--- NOTE | 2021-01-20 10:37 | W.PM.OP ---
Operative Note Operative Note DATE OF PROCEDURE: 01/20/21 PRE-OP DIAGNOSIS: 5 cm right ovarian cyst, thickened endometrium POST-OP DIAGNOSIS: same Postoperative diagnosis is same with complex right ovarian cyst and complex left ovarian cyst PROCEDURE: Operative laparoscopy with bilateral oophorectomy, dilation with curettage SURGEON: Dorota Hampton ASSISTING SURGEON: Hermila Garcia ANESTHESIA TYPE: General LMA/ETT Refer to Anesthesia Record ESTIMATED BLOOD LOSS: 10 PATHOLOGY: other (1. Right ovarian fluid 2. Right adnexa 3.Left Adnexa 4. Endocervical Curettage 5. Endometrial Curettage) COMPLICATIONS: Other (Uterine Perforatio, hemostatic) Patient was transported to: PACU Patient's condition: stable Indications: Complex right ovarian cyst Findings: Complex right ovarian cyst. Complex left ovary. Uterine perforation, hemostatic Procedure Description: Patient taken operating suite with IV running. She was placed in the supine position and endotracheal intubation performed for the ministration of general anesthesia with ease. She was then placed in the modified dorsolithotomy position and prepped and draped in the usual sterile fashion. Speculum was inserted into the vagina after bladder was drained for approximately 50 cc of clear yellow urine. Cervix was flush with the vaginal apex and moderately stenotic. Single-tooth tenaculum was used to grasp the anterior lip of the cervix and cervix was meticulously dilated to the point that a Hulka uterine manipulator could be placed. With a Hulka on insertion, uterus was noted to be small and perforation at the fundus was felt. At this point speculum was removed and attention turned to the abdomen. After infiltration of half percent Marcaine and infraumbilical incision was made. The interabdominal is elevated and varies needle used to insert into the abdomen to create a pneumoperitoneum with 15 mmHg pressure in total. At this point with a bladeless Optiview sleeve and trocar under direct visualization a 10 mm camera was placed. Abdomen was inspected. There is no evidence of trauma other than a very small 2 mm perforation at the right apex of the fundus of the uterus. This was hemostatic. Left ovary was small atrophic, however had 2 small cystic structures therein. Right adnexa was enlarged at 5 cm and multicystic. At this point the right ovary was elevated and cyst fluid aspirated sent for cytology 12 lateral better visualization of the right adnexa and right pelvic sidewall. The right adnexa was elevated off of the right pelvic sidewall after irritated structure on that side was identified and well below the surgical field. The right infundibulopelvic ligament was identified and cautery Whipple acted the remainder of the right ovary was then removed from the right pelvic sidewall and utero-ovarian ligament identified cautery transected and ligated. The right adnexa was placed in an Endopouch and removed from the abdomen. In light of the fact that the left ovary was somewhat irregular though atrophic appearing decision was made to remove her left ovary as well. The left ovary was then elevated away from the left pelvic sidewall and cautery transected. Again this was placed into an Endopouch and removed through the umbilical incision. Pressure was decreased to 5 mmHg and all pedicle sites were inspected. There is one area that was not hemostatic was which was clipped with a single Weck clip. At this point all pedicles were hemostatic. Small fundal uterine perforation was also hemostatic. Patient did receive 1 dose of antibiotics intraoperatively in light of the uterine perforation. At this point the abdominal incisions were closed after fascia was reapproximated with 0 Vicryl suture and sterile dressings were placed. Attention was turned to the vaginal vault where a fractional curettage performed of the endocervical canal and subsequently of the endometrium. Hysteroscopy was not performed in light of the fact that there had been a uterine perforation to decrease back pressure at the endometrial cavity and decrease the possibility of fluid traversing through the cervix, endometrium, and into the peritoneal cavity. At this point procedure was terminated all instruments were removed patient was returned to the dorsal supine position and awoke from anesthesia with ease. She was taken to recovery room in stable condition with the previously mentioned findings.
--- NOTE | 2021-01-20 12:15 | W.ANESPOSTOP ---
Postoperative Evaluation Date, Time and Location Date Performed: 01/20/21 Time Performed: 12:10 Patient Location: Day Surgery Unit Vital Signs Most Recent Imported Vital Signs: Most Recent Vital Signs Temp Pulse Resp BP Pulse Ox 36.4 C L 61 18 109/60 97 01/20/21 12:10 01/20/21 12:10 01/20/21 12:10 01/20/21 12:10 01/20/21 12:10 Pain Score Most Recent Pain Score: Most Recent Pain Score Pain Level 0 01/20/21 12:10 Assessment Mental Status: Awake (Alert & Oriented to Patient Baseline) Airway and Respiratory Function: Patent airway with normal (patient baseline) respiratory exam Cardiovascular Function: Hemodynamically Stable Hydration Status: Adequately Hydrated Nausea & Vomiting: No Nausea or Vomiting Pain: Pain is tolerable per patient (patient states no real pain, just tightness at the incision sites) Peripheral Nerve Block: Patient did not receive a nerve block Postoperative Comments:: cough has mostly resolved, lungs clear
== END 2021-01-20 12:50 | disposition home or self-care (01) ==
PROVIDERS: PCP Family Medicine; Visit Provider Obstetrics & Gynecology
PROC: 0UDB8ZZ Extraction of Endometrium, Via Natural or Artificial Opening Endoscopic (ICD-10-PCS; CPT 58558; principal; 2021-01-20 09:00)
PROC: (CPT 58661; 2021-01-20 09:00)
DX: D27.0 Benign neoplasm of right ovary (principal); N83.292 Other ovarian cyst, left side; R93.89 Abnormal findings on diagnostic imaging of other specified body structures; N99.71 Accidental puncture and laceration of a genitourinary system organ or structure during a genitourinary system procedure
CPT/HCPCS: 58661; 49322; 58120; 88305; 88104; 88313; J0131; J0360; J1100; J1885; J2001; J2405; J2704; J3010

== ENCOUNTER 2022-05-26 09:27 | Emergency (ER) | payer MEDICARE, SELFPAY ==
[2022-05-26] VITALS (19 sets, daily range): BP systolic 119–141; BP diastolic 59–69; PULSE 77–152; RESP 11–26; O2SAT 97–100
--- NOTE | 2022-05-26 09:15 | RT.EKG_ITS ---
APPROVED REPORT Exam: Resting ECG Reason for Exam: afib w/rapid response Patient Location: E HR:134 bpm ECG Measurements Heart Rate 134 AXIS PA 167 P 21 QRSd 86 QRS -14 QT 285 T 90 QTc 426 Conclusion Sinus tachycardia...rate> 99 atrial flutter vs sinus tach rate related ST changes
--- NOTE | 2022-05-26 09:29 | ED.GENADUL_ITS ---
Discharge Plan Disposition Patient Disposition: HOME Condition: Good Discharge Details Clinical Impression: Atrial flutter Primary Care Provider: Racquel Nevarez ED Provider: Kristofer Martinez [place] Meds and New Rx's Prescriptions: New Eliquis 5 mg tablet 5 mg PO BID Qty: 60 0RF metoprolol tartrate 25 mg tablet 12.5 mg PO BID Qty: 30 0RF Continued Caltrate 600 plus D 600 mg (1,500 mg)-800 unit tablet,chewable 1 tab PO DAILY ascorbic acid (vitamin C) 500 mg tablet 500 mg PO DAILY chlorpheniramine maleate [Aller-Chlor] 4 mg tablet 4 mg PO Q8H PRN triamcinolone acetonide 0.1 % cream 1 applic TP BID Qty: 80 0RF Rx Instructions: apply to foot carbamazepine [Carbatrol] 300 mg capsule, ER multiphase 12 hr 300 mg PO BID Qty: 180 5RF acetaminophen [Tylenol Arthritis Pain] 650 mg tablet extended release 650 mg PO Q12H valacyclovir [Valtrex] 1 gram tablet 1,000 mg PO Q8H Qty: 24 0RF Rx Instructions: Take 1 tab every 8 hours x7 days One Daily Plus Minerals 1 EACH tablet 1 ea PO DAILY vitamin E 400 UNIT capsule 1 cap PO DAILY estradiol 0.01 % (0.1 mg/gram) cream 2 gm VG .twice weekly Qty: 42.5 12RF ondansetron 4 mg tablet,disintegrating 4 mg PO Q8H PRN (Reason: nausea and vomiting) Qty: 7 0RF gabapentin 300 mg capsule 300 mg PO BID Qty: 60 2RF docusate sodium [Colace] 100 mg capsule 100 mg PO BID PRN (Reason: constipation) Qty: 30 0RF Discontinued ibuprofen 800 mg tablet 800 mg PO Q8H PRNQty: 30 1RF Discharge Instructions Instructions: Metoprolol (By mouth), Apixaban (By mouth), Atrial Flutter (ED) Additional Instructions: You were seen in the ED for rapid heart rate which we feel was atrial flutter. After discussion with Dr. Fowler and Dr. Nevarez he was recommended to start anticoagulation with Eliquis. We will use metoprolol for rate control which she did receive here to the IV and converted back to sinus rhythm. Your chest x- ray and laboratory studies look good. Repeat troponin was slightly elevated but third troponin was downtrending and likely just related to your rate of 150. Please [address] Nevarez for follow-up. Return to ED for any chest pain, syncope, shortness of breath, neurologic change, severe headache, head trauma, bleeding, other concerns. Medical Decision Making Patient presenting with palpitations and found to be tachycardic. EKG suggest sinus tach versus atrial flutter. With carotid massage I was able to slow her rate from 140s to 120s which clearly showed P wave versus flutter waves. Case discussed with Dr. Fowler and EKG reviewed. Dr. Fowler and I feel this is likely atrial flutter. Given the short duration could attempt cardioversion versus slowing and hoping for conversion on own. Either way Dr. Fowler felt anticoagulation was appropriate given the patient's age. Discussed with patient and and elected to go with metoprolol versus cardioversion. Laboratory studies and chest x-ray ordered. Patient laboratory studies are significant for slightly elevated white count of 13.2, low potassium at 3.1, low normal bicarbonate 21 with anion gap of 18 and some evidence of prerenal azotemia with a BUN of 23 creatinine 1. Magnesium slightly low at 1.6. Liver function normal. TSH normal. D-dimer normal. First troponin normal. Carbamazepine level was therapeutic. Chest x-ray unremarkable per my review as well as final radiology read. Patient converted to sinus rhythm after 5 mg IV Lopressor. I did speak with her primary care physician Dr. Nevarez. We will start Eliquis 5 mg p.o. twice daily as well as low pressure 12.5 mg twice daily. We will plan repeat troponin and EKG and will also repeat BMP after liter of saline. Repeat BMP is better with normal anion gap now. Troponin did bump slightly to 72. Patient has remained in sinus rhythm and has had no pressure. Suspect mild troponin leak from the rapid rate she was in for a couple of hours. We will plan third repeat troponin and if flat or going down discharge. Her second EKG associated with a second troponin is sinus rhythm with normal ST segments. Patient remained in sinus during her stay in the ED. Repeat troponin trending down. Repeat EKG normal. Patient safe for discharge on Eliquis and Lopressor with follow-up at primary care next week. Return precautions discussed. Lab Data Lab results reviewed: Yes I reviewed the patient's lab results. ECG Data Attestation: I personally reviewed and interpreted this ECG (s) as follows: Prior ECG tracings: not available for review Interpretation: See EKG HPI General Mode of arrival: wheelchair . Date/Time Provider Initiated Documentation: 05/26/22 09:29 . Limitations to Documentation: no limitations . Information obtained by: patient . HPI Narrative: Patient presents to ED with complaint of palpitations, tachycardia, lightheadedness. 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 He did attempt carotid massage at home hoping this was SVT. Patient continued with symptoms so she was brought to the ED. Patient has no prior history of SVT or A. fib. She reports waking up shortly after 8 AM feeling fine. When she got up to go to the bathroom she developed palpitations and dizziness. This continued and she notified her . She denies having any chest pain or pressure. She denies any shortness of breath. She denies any leg pain or leg swelling. She has not been ill recently and denies fever, cough, vomiting, diarrhea. Related Data Home Medications Medication Instructions Recorded Confirmed multivitamin with minerals (One 1 ea PO DAILY 01/25/13 05/26/22 Daily Plus Minerals tablet) vitamin E 268 mg (400 unit) capsule 1 cap PO DAILY 02/04/13 05/26/22 ascorbic acid (vitamin C) 500 mg 500 mg PO DAILY 07/10/18 05/26/22 tablet calcium carbonate 600 mg-vitamin 1 tab PO DAILY 07/10/18 05/26/22 D3 20 mcg (800 unit) chewable tablet (Caltrate 600 plus D) chlorpheniramine maleate 4 mg 4 mg PO Q8H PRN 07/15/19 05/26/22 tablet (Aller-Chlor) triamcinolone acetonide 0.1 % 1 applic topical BID #80 grams 07/15/19 05/26/22 topical cream estradiol 0.01% (0.1 mg/gram) 2 gm vaginal .twice weekly #42.5 08/13/19 05/26/22 vaginal cream grams Carbatrol 300 mg capsule, extended 300 mg PO BID #180 tab-caps 08/11/20 05/26/22 release (carbamazepine) acetaminophen 650 mg 650 mg PO Q12H 01/18/21 05/26/22 tablet,extended release (Tylenol Arthritis Pain) docusate sodium 100 mg capsule 100 mg PO BID PRN constipation #30 01/20/21 05/26/22 (Colace) caps valacyclovir 1 gram tablet 1,000 mg PO Q8H #24 tabs 05/10/21 05/26/22 (Valtrex) ondansetron 4 mg disintegrating 4 mg PO Q8H PRN nausea and 05/12/21 05/26/22 tablet vomiting #7 tabs gabapentin 300 mg capsule 300 mg PO BID #60 caps 05/28/21 05/26/22 apixaban 5 mg tablet (Eliquis) 5 mg PO BID #60 tabs 05/26/22 metoprolol tartrate 25 mg tablet 12.5 mg PO BID #30 tabs 05/26/22 Previous Rx's Medication Instructions Recorded triamcinolone acetonide 0.1 % 1 applic topical BID #80 grams 07/15/19 topical cream estradiol 0.01% (0.1 mg/gram) 2 gm vaginal .twice weekly #42.5 08/13/19 vaginal cream grams Carbatrol 300 mg capsule, extended 300 mg PO BID #180 tab-caps 08/11/20 release (carbamazepine) docusate sodium 100 mg capsule 100 mg PO BID PRN constipation #30 01/20/21 (Colace) caps valacyclovir 1 gram tablet 1,000 mg PO Q8H #24 tabs 05/10/21 (Valtrex) ondansetron 4 mg disintegrating 4 mg PO Q8H PRN nausea and 05/12/21 tablet vomiting #7 tabs gabapentin 300 mg capsule 300 mg PO BID #60 caps 05/28/21 apixaban 5 mg tablet (Eliquis) 5 mg PO BID #60 tabs 05/26/22 metoprolol tartrate 25 mg tablet 12.5 mg PO BID #30 tabs 05/26/22 Allergies Allergy/AdvReac Type Severity Reaction Status Date / Time alprazolam AdvReac Unknown pt.states Verified 05/26/22 09:34 it made me loopy erythromycin base AdvReac Diarrhea Verified 05/26/22 09:34 General LORENZO: 3 Review of Systems Narrative: 05/06 Review of Systems completed and is negative except as stated above in HPI (Systems reviewed: Const, Eyes, ENT, Resp, CV, GI, , MSK, Skin, Neuro) [facility] All Active Problems (Updated 05/26/22 @ 17:06 by Kristofer Martinez MD) Atrial flutter (Acute) Actinic keratitis (Chronic 05/12/14) 05/12/14 ;RIGHT BROW Annual physical exam (Acute 05/12/15) 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 Has not had a seizure since. Thickened endometrium Surgical History (Updated 05/26/22 @ 09:32 by Kristofer Martinez MD) [place] [facility] [place] H/O arthroscopy of left knee 07/24/02 H/O section S/P appendectomy S/P bilateral oophorectomy Skin Cancer Removal 09/25/17 LEFT FOREHEAD (BASAL CELL) Family History Mother , AGE 77 Multiple myeloma Father , AGE 85 Heart disease CHF Prostate cancer Sister , age 56 Essential hypertension Glioblastoma Sister No problems noted. Brother No problems noted. Paternal Grandfather , AGE 74 Heart disease Maternal Grandmother , BLOOD CLOT at age 59. No problems noted. Paternal Grandmother , KIDNEY DISEASE at age 41. No problems noted. Uncle Bone cancer Son Glioblastoma Son No problems noted. Daughter No problems noted. Maternal Grandfather , age 68 No problems noted. Social History Smoking/Tobacco Use Status: Never Smoking risk assessment performed?: Yes Alcohol Intake: current Alcohol Intake frequency: 0-2 drinks per day Alcohol type: beer and wine Drug use: Never Substance use type: does not use Counseling given: No Counseling provided: none Caregiver/Support person: No Household members: spouse Housing: house Communication Needs: None Pets and animals: Yes Pets and animals: cat(s) Sexually active: Yes Do you think of yourself as: straight/heterosexual Current gender identity: female What is your relationship status?: How often do you talk on the phone with friends or family?: three or more times per week How often do you get together with friends or relatives?: decline to answer How often do you attend adventism or sikhism services?: decline to answer Do you belong to any clubs or organized social groups?: decline to answer Panel score (0-1 are the most socially isolated patients): 2 What type of physical activity do you participate in: walking and other Details: recumbent bike Duration: 60-90 minutes/day Frequency: daily Lurdes/Baptist: Baptism Special lurdes needs: No Seatbelt use: always Helmet use: No Drive intox or ride w/intox party bus driver: No Do you feel safe at home: Yes Do you feel safe in your relationship?: Yes Exam Narrative Exam Narrative: Const: WDWN female in NAD. HEENT: NC/AT. Normal facial exam. Eyes: Normal conjunctiva and sclera. Neck: Supple. Trachea midline. Lungs: Normal respiratory effort. Lungs are clear. Cor: RRR tachycardic without murmur/gallop. Good radial pulses. GI: Soft. NT/ND. No guarding or rebound. Neuro: A+O x 3. Normal speech, mentation, gait. Cranial nerves II - XII grossly intact. No gross motor or sensory deficit. Ext: No C/C/E. No calf tenderness. Skin: Warm and dry without rash. Critical Care Time Critical Care Time Critical Care Time: Yes Total Critical Care Time: 45 Attestation: Upon my evaluation, this patient had a high probability of imminent or life- threatening deterioration, which required my direct attention, intervention, and personal management. I have personally provided 45 minutes of critical care time exclusive of time spent on separately billable procedures. Time includes review of laboratory data, radiology results, discussion with consultants, and monitoring for potential decompensation. Interventions were performed as documented above.
--- NOTE | 2022-05-26 09:30 | DI.RAD_ITS ---
Exam(s) XR PORTABLE CHEST AP EXAM: XR PORTABLE CHEST AP CLINICAL HISTORY: PALPITATIONS. TECHNIQUE: 2D digital imaging was performed. COMPARISON: No exams were available for comparison FINDINGS: LUNGS: Clear. No pleural abnormality seen. HEART: Normal. MEDIASTINUM: Normal. OTHER FINDINGS: None. IMPRESSION: No acute pulmonary findings. DATA REPOSITORY: RADIATION DOSE DELIVERED: Total DLP
--- OUTSIDE RECORDS SUMMARY | 2022-05-26 09:59 | XMS_ITS | Encounter Summary ---
:1950 Author Organization [facility] [place] [address] Care Team Providers Name Role Phone Racquel Nevarez MD Primary Care Provider Reason for Visit Reason Onset Date Comments Other 08/26/2013 medication question Encounter Details Date Type Department Care Team Description 08/26/2013 Telephone [place] [facility] [place] Resendiz, Other (medication [facility] MD question) [place] [address] NEUROLOGY DEPT. [place], [place] [address] (Wo rk) Social History Tobacco Use Types Packs/Day Years Used Date Never Smoker Smokeless Tobacco: Never Used Alcohol Use Standard Drinks/Week Comments Yes 4 (1 standard drink = 0.6 oz pure alcoho l) Physical Activity Answer Date Recorded On average, how many days per week do you engage in moderate to 7 days 04/16/2022 strenuous exercise (like walking fast, running, jogging, dancing, swimming, biking, or other activities that cause a light or heavy sweat)? On average, how many minutes do you engage in exercise at is 100 min 04/16/2022 level? Financial Resource Strain Answer Date Recorded How hard is it for you to pay for the very basics like Not h rosalino at all 04/16/2022 food, housing, medical care, and heating? Food Insecurity Answer Date Recorded Within the past 12 months, you worried that your food would Never true 04/16/2022 run out before you got money to buy more. Within the past 12 months, the food you bought just didn't N ever true 04/16/2022 last and you didn't have money to get more. Transportation Needs Answer Date Recorded In the past 12 months, has lack of transportation kept you f rom No 04/16/2022 medical appointments or from getting medications? In the past 12 months, has lack of transportation kept you f rom No 04/16/2022 meetings, work, or getting things needed for daily living? Housing Stability Answer Date Recorded In the last 12 months, was there a time when you were not ab le No 04/16/2022 to pay the mortgage or rent on time? In the last 12 months, how many places have you lived? 1 04/16/2022 In the last 12 months, was there a time when you did not hav e a No 04/16/[address] or slept in a assisted (including now)? Sex Assigned at Date Recorded Not on file documented as of this encounter Miscellaneous Notes Telephone Encounter - Kendra Francisco RN - 09/20/2013 4:[address] Resendiz: ----- Message ----- From: Aidan Resendiz MD Sent: 08/26/2013 1:52 PM To: Paulette Damon I spoke with the patient. She is having sinus congestion and toothache which her dentist thinks is not due toher teeth. She can use low doses of Benadryl 25 mg twice a day when necessary Sudafed up to 120 mg daily. Aidan Resendiz M.D. Telephone Encounter - Paulette Damon - 08/26/2013 1:41 PM EST Patient called because she has a cold with severe sinus pain (into her teeth) and has been told to take some decongestants by the dentist (her teeth were fine). She is not sure what she can take as sheis on CARBATROL. Please call to advise what decongestant she can take to relieve her symptoms safely. documented in this encounter Plan of Treatment Upcoming Encounters Date Type Specialty Care Team Description 06/20/2022 Procedure visit Neurology Fernando Garcia MD [facility] NEUROLOGY DEPT. [place], [place] [address] (Wo rk) 06/20/2022 Office Visit Neurology Aidan Resendiz MD [facility] NEUROLOGY DEPT. [place], [place] [address] (Wo rk) documented as of this encounter Visit Diagnoses Not on filedocumented in this encounter Care Teams Geriatric Physical Therapist Relationship Specialty Start Date End Date Racquel Nevarez MD PCP - General 06/15/[address] [place] [address] documented as of this encounter
--- OUTSIDE RECORDS SUMMARY | 2022-05-26 09:59 | XMS_ITS | Encounter Summary ---
:1950 Author Organization [facility] [place] [address] Care Team Providers Name Role Phone Racquel Nevarez MD Primary Care Provider Encounter Details Date Type Department Care Team Description 04/20/2022 Office Visit Neurology at [facility] [place] [place] Aidan Resendiz, Partial symptomatic epilepsy with complex partial seizures, not intractable, without status epilepticus; [facility] [place] [address] NEUROLOGY DEPT. [phone] [place], [place] [address] Social History Tobacco Use Types Packs/Day Years Used Date Never Smoker Smokeless Tobacco: Never Used Alcohol Use Standard Drinks/Week Comments Yes 0 (1 standard drink = 0.6 oz pure alcoho l) occasional Alcohol Habits Answer Date Recorded How often do you have a drink containing alcohol? Not asked How many drinks containing alcohol do you have on a typical Not asked day when you are drinking? How often do you have six or more drinks on one occasion? No t asked Comment: occasional 05/22/2018 Physical Activity Answer Date Recorded On average, how many days per week do you engage in moderate to 7 days 04/16/2022 strenuous exercise (like walking fast, running, jogging, dancing, swimming, biking, or other activities that cause a light or heavy sweat)? On average, how many minutes do you engage in exercise at th is 100 min 04/16/2022 level? Financial Resource [...] place to sleep or slept in a [facility] (including now)? Sex Assigned at Date Recorded Not on file documented as of this encounter Last Filed Vital Signs Vital Sign Reading Time Taken Comments Blood Pressure 169/80 04/20/2022 10:54 AM EDT Pulse 79 04/20/2022 10:54 AM EDT Temperature - - Respiratory Rate - - Oxygen Saturation - - Inhaled Oxygen Concentration - - Weight 61.9 kg (136 lb 8 oz) 04/20/2022 10:54 AM EDT Height 170.2 cm (5' 7) 04/20/2022 10:54 AM EDT Body Mass Index 21.38 04/20/2022 10:54 AM EDT documented in this encounter Patient Instructions Patient InstructionsAidan Resendiz MD - 04/20/2022 11:00 AM EDT I think you're doing quite well Seizures appear to be controlled Please stay on the Carbatrol. The generic formulation should be okay. 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 This is probably normal aging of the nerves. Your blood test were all normal. There may be something similar going on in your hands. You do not have classical carpal tunnel syndrome or ulnar neuropathy and I do not think you have pinched nerves in your neck. I would like you to get electrical studies done here which we will schedule. Atopic dermatitis seems to be doing very well. You can continue to use triamcinolone as needed. With regard to your allergies, it seems that the older antihistamines worked better for you, and occasional use of Chlor-Trimeton is very reasonable option. I would like to see you back in coordination with your electrical studies. Aidan Resendiz MD Department of Neurology [address] [address], [place] [address] Pager: [phone], #[phone] Email: [email or web address] documented in this encounter Progress Notes Aidan Resendiz MD - 04/20/2022 11:00 AM EDT Neurology clinic note Chief Complaint: Epilepsy. History: The patient is seen in followup today. 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 He has had rare secondarily generalized seizures. Seizures were fully controlled on Carbatrol. Shehas about one aura of d??j?? vu per month. MRI scan was normal. She continued to do well. She had noseizures, but has had occasional auras. Her general health has been good. Some years ago she had a new problem of vertigo. She had a bad viral infection followed by episodes of positional vertigo and dizziness. We repeated an MRI scan with fine cuts through the posterior fossa that was unremarkable. Physical therapy with the Carlos maneuver resulted in resolution of her symptoms supporting a diagnosis of benign positional vertigo. As of 2019 she feels she is doing well. She has had no seizures. She has occasional minor auras. Shehad some minor orthopedic problems with tendinitis in the shoulders. These have subsided. She has minor recurrences of vertigo with upper respiratory infections, but not at other times and this is not disabling. She is still troubled by allergies and finds that occasional use of Chlor- Trimeton is the best option. The new antihistamines do not work for her. She was having some atopic dermatitis that has improved with triamcinolone cream. She still has whitecoat hypertension As of 2019 she continues to do well. She has had no seizures. She has occasional minor auras. Symptoms of back pain and other arthritic symptoms have gradually subsided. She has had no recurrence of vertigo. She continues to have some upper respiratory allergy symptoms. Her blood pressure has been stable. We made no change in her regimen. As of 2020, she is doing better. The last year has been rather dramatic. She had acute appendicitis and had surgery. Then she was found to have an ovarian cyst, and underwent ovariectomy. She is now feeling better. She still has occasional aura sensations that we think represent the beginnings of an epileptic seizure, but has not had any obvious seizure activity or lapses of attention and concentration. Allergy symptoms are under control. There has been no recurrence of vertigo. Interval history: As of 2021 she is doing quite well. She has had no seizures. She has occasional auras without impairment of consciousness. She remains on Tegretol. Is having attack of shingles across the thorax shortly after seeing me last year. She had pain for several weeks but has recovered well. She is still having paresthesias in the hands and feet. She tried using wrist splints without much improvement. We had screened her for reversible causes of neuropathy last year but found nothing Past Medical history: Patient Active Problem List Diagnosis ??? Shingles ??? Atrophic vaginitis ??? Osteopenia ??? Ovarian cyst, right ??? S/P appendectomy ??? S/P bilateral oophorectomy ??? Thickened endometrium ??? Basal cell carcinoma of skin of other parts of face ??? Squamous cell carcinoma in situ of skin ??? Actinic keratitis ??? Arthritis ??? Vertigo ??? Epilepsy Review of systems: She is eating or right. Sleep is disturbed. Bowel and bladder function are normal. Social history: Her son is now . Her daughter is already . She and her have 2 grandchildren. He is retired from orthopedic surgery. Physical Exam: BP 169/80 Pulse 79 Ht 170.2 cm (5' 7) Wt 61.9 kg (136 lb 8 oz) BMI 21.38 kg/m?? Head, eyes, ears, nose, and throat were normal. There was no adenopathy Heart and lungs were normal. Extremities were unremarkable except for some distal arthritic changes. Atopic dermatitis seems resolved She is mentally intact and speech was normal. Cranial nerves were normal. I could not elicit any nystagmus or vertigo today. Strength was normal. Tone was normal. There were no abnormal movements. Reflexes were 2+ and symmetrical, but I could not today elicit ankle reflexes. There was no Babinski sign. Sensation was substantially normal, but there is diminished vibration sense at the ankles. With regard to upper extremity symptoms, she has some tingling paresthesias in fingers of both hands. However cervical compression was unremarkable. Hyperabduction of the shoulders did not worsen his symptoms, Ti gregg's sign was absent at the wrist, Phalen sign was equivocal, the ulnar grooves were nontender. Cerebellar function testing was noteworthy for normal finger to nose movement. Her gait was stable. Medications: Current Outpatient Medications Medication Sig Dispense Refill ??? triamcinolone (Kenalog) 0.1 % Cream Apply topically 2 times daily as needed. 30 g 3 ??? chlorpheniramine (CHLOR-TRIMETON) 4 mg Tablet Take 1 tablet by mouth 2 times daily as needed forAllergies. 30 tablet 0 ??? Psyllium Husk 0.52 gram Capsule Take 0.52 g by mouth nightly. ??? CALCIUM CARBONATE/VITAMIN D3 (CALCIUM + D ORAL) Take 1 tablet by mouth daily. ??? vitamin E 400 unit capsule Take 400 Units by mouth daily. ??? Simethicone 180 mg Capsule Take 1 tablet by mouth as needed. ??? ESTRADIOL (ESTRACE VAGL) Place vaginally every other day. ??? MULTIVITAMIN WITH MINERALS (MULTIVITAMIN AND MINERALS ORAL) Take 1 tablet by mouth daily. ??? Flowflex COVID-19 Ag Home Test Kit REFER TO LASTEX THREAD WINDER INSTRUCTIONS INCLUDED IN PACKAGING ??? albuteroL 90 mcg/actuation HFA Aerosol Inhaler INHALE 1 PUFF BY MOUTH FOUR TIMES DAILY NEEDEDFOR WHEEZING. ??? carBAMazepine CR (CarbatroL) 300 mg Cap, Multiphasic Release 12 hr Take 1 capsule by mouth 2 times daily. BRAND NAME ONLY 180 capsule 3 ??? naproxen sodium (ANAPROX) 220 mg Tablet Take 220 mg by mouth daily. No current facility-administered medications for this visit. Laboratory studies: Screening laboratory studies normal here in 2012, and in [facility] in 2014, and 2016. CBC chemistry liver profile and cholesterol are all unremarkable. Tegretol level was 7.8. Lab tests unremarkable in 2020 Procedures ??? Basic Metabolic Panel (non-fasting) ??? Lamotrigine Lvl ??? TSH ??? Vitamin B12 ??? Hepatic Function Panel ??? CBC (with Diff) ??? Sedimentation rate ? ? Lyme IgG & IgM Antibody ??? Tissue transglutaminase, IgA ??? CARRILLO ??? Protein Electrophoresis, serum ??? Rheumatoid factor, quant ??? Hemoglobin A1c ??? CK ??? T4 Total ??? Angiotensin Converting Enzyme ??? Carbamazepine level, total ??? Hemogram ??? Differential, Automated Orders Placed This Encounter Procedures ??? Nerve conduction test Impression: The patient is doing quite well neurologically. 1. Seizures are fully controlled. She is having occasional auras. I think she should stay on the Carbatrol indefinitely. 2. The problem of dizziness was almost certainly benign positional vertigo. It seems to have resolved with physical therapy. There are occasional mild recurrent symptoms when she has an upper respiratory infection, which is to be expected. I would do nothing further in this regard. I note that followup MRI scan of the brain was normal. 3. For her allergies, I think occasional use of Chlor-Trimeton is the best option. The new drugs do not work for her. The likelihood of occasional use of an old antihistamine causing any problems is quite low. 4. She had some atopic dermatitis of the arms. Triamcinolone cream used as needed seems to work quite well. 5. Her blood pressure is still on the high side when measured here, but I understand this has been worked up exhaustively and is thought to be whitecoat hypertension not in need of treatment. 6. I think she is developing a peripheral neuropathy. There is no obvious cause. It is relatively mild and probably age-related. I am screening her for reversible causes of neuropathy as listed above. She is having more symptoms in the arms and legs, with some tingling paresthesias. At this point I think it is reasonable to obtain a nerve conduction study which I have requested. Thank you for this consultation. I will see her back in a few months and we will coordinate that with her electrical testing.. Aidan Resendiz MD [place] [address] Pager: [phone], #[phone] Email: [email or web address] CC: Racquel Nevarez MD documented in this encounter Plan of Treatment Upcoming Encounters Date Type Specialty Care Team Description 06/20/2022 Procedure visit Neurology Fernando Garcia MD [facility] NEUROLOGY DEPT. [place], [place] [address] (Wo rk) 06/20/2022 Office Visit Neurology Aidan Resendiz MD [facility] NEUROLOGY DEPT. [place], [place] [address] (Wo rk) Scheduled Orders Name Type Priority Associated Diagnoses Order S chedule Nerve conduction test Neurology Routine Neuropathy Ordere d: 04/20/2022 documented as of this encounter Visit Diagnoses Diagnosis Partial symptomatic epilepsy with comple x partial seizures, not intractable, without status epilepticus Neuropathy Mononeuritis of unspecified site documented in this encounter Care Teams Benefits Advisor Relationship Specialty Start Date End Date Racquel Nevarez MD PCP - General 06/15/[address] [place] [address] documented as of this encounter
--- OUTSIDE RECORDS SUMMARY | 2022-05-26 09:59 | XMS_ITS | Encounter Summary ---
:1950 Author Organization [facility] Address [facility] [place] [address] Care Team Providers Name Role Phone Racquel Nevarez MD Primary Care Provider Reason for Visit Reason Onset Date Comments Questions 10/12/2020 Encounter Details Date Type Department Care Team Description 10/12/[address] [facility] [place] Aidan Aldana MD Questions [facility] D rive [facility] [place] [address] NEUROLOGY DEPT. [phone] [place], [place] [address] (Wo rk) Social History Tobacco [...] place to sleep or slept in a fdc (including now)? Sex Assigned at Date Recorded Not on file documented as of this encounter Miscellaneous Notes Telephone Encounter - Krystina Bragg RN - 10/13/2020 10:40 AM EDT Discussed with pt brand versus generic Pt notes that recent rx was transferred to a different pharmacy and she was given Carbamazepine ER 300 mg caps - she notes she has a 3 mo supply Pt knows to call with any questions/concerns as she starts generic Carbatrol. Telephone Encounter - Krystina Bragg RN - 10/13/2020 10:18 AM EDT Call placed to pt with VM left asking for call back - my direct line give Telephone Encounter - Krystina Bragg RN - 10/13/2020 10:16 AM EDT Provider patient sees in Clinic: ??Dr. Aldana Caller and relationship (if other than patient-full name): self Call back number:[phone]?? Ok to leave a message: yes ?? Reason for call: Patient called in with one more question. Patient would like to know if any of the providers patients who take the generic form have any side effects. Patient states that she has dean on the non generic form for 26 years. ?? Disposition of Call (choose one and remove others): ?? Red Arrow Message ? Reason red arrow Message: n ? Routine Message sent to the Nurse: yes ? Routine message sent to [facility]: n ?? Telephone Encounter - Krystina Bragg RN - 10/12/2020 3:[address] Aldana: I think it is reasonable to have her switch to the generic Carbatrol. ??Believe itor not there is generic Carbatrol and generic Tegretol XR, and they are not same. ??So what I would do is rewrite the prescription saying Carbatrol , but not specifying dispense as written which will get her the generic Carbatrol I hope. We will take it from there. Call placed to pt above was started to be discussed then the call was dropped. Call placed back - VMreached. Msg left for call back will need pharmacy confirmed then will send in new rx Telephone Encounter - Hermila Cuba - 10/12/2020 2:24 PM EDT Call Center / Director Auto Message - General Issue Call Provider patient sees in Clinic: Martín Caller and relationship (if other than patient-full name): self Call back number: [phone] Ok to leave a message: y Reason for call: pt got new insurance and they want her to take the generic brand of CarbatroL 300 mg Cap,and the pt would like to know if that's going to be ok. Please call and let her know. Disposition of Call (choose one and remove others): ??? Red Arrow Message Reason red arrow Message: n ??? Routine Message sent to the Nurse: y ??? Routine message sent to Director Auto: n documented in this encounter Plan of Treatment Upcoming Encounters Date Type Specialty Care Team Description 06/20/2022 Procedure visit Neurology Fernando Garcia MD [facility] NEUROLOGY DEPT. [place], [place] [address] (Wo rk) 06/20/2022 Office Visit Neurology Aidan Aldana MD [facility] NEUROLOGY DEPT. [place], [place] [address] (Wo rk) documented as of this encounter Visit Diagnoses Not on filedocumented in this encounter Care Teams Station Gateman Relationship Specialty Start Date End Date Racquel Nevarez MD PCP - General 06/15/[address] [place] [address] documented as of this encounter
--- OUTSIDE RECORDS SUMMARY | 2022-05-26 09:59 | XMS_ITS | Encounter Summary ---
:1950 Author Organization [facility] [place] [address] Care Team Providers Name Role Phone Racquel Nevarez MD Primary Care Provider Encounter Details Date Type Department Care Team Description 02/01/2011 Abstract Neurology at [facility] [place] Aidan Resendiz MD [facility] [place] [address] NEUROLOGY DEPT. [phone] [place], [place] [address] (Wo rk) Social History Tobacco Use Types Packs/Day Years Used Date Never Assessed Physical Activity Answer Date Recorded On average, [...] place to sleep or slept in a longterm (including now)? Sex Assigned at Date Recorded Not on file documented as of this encounter Plan of Treatment Upcoming Encounters Date Type Specialty Care Team Description 06/20/2022 Procedure visit Neurology Fernando Garcia MD [facility] NEUROLOGY DEPT. [place], [place] [address] (Wo rk) 06/20/2022 Office Visit Neurology Aidan Resendiz MD [facility] NEUROLOGY DEPT. [place], [place] [address] (Wo rk) documented as of this encounter Visit Diagnoses Not on filedocumented in this encounter Care Teams Bonding Molder Relationship Specialty Start Date End Date Racquel Nevarez MD PCP - General 06/15/[address] [place] [address] documented as of this encounter
--- OUTSIDE RECORDS SUMMARY | 2022-05-26 09:59 | XMS_ITS | Encounter Summary ---
:1950 [place] [address] Care Team Providers Name Role Phone Racquel Nevarez MD Primary Care Provider Reason for Visit Reason Onset Date Comments Medication Refill 01/08/2016 Encounter Details Date Type Department Care Team Description 01/08/2016 Telephone Neurology at [facility] [place] Aidan Resendiz MD Medication Refill [facility] [place] [address] NEUROLOGY DEPT. [phone] [place], [place] [address] (Wo rk) Social History Tobacco Use Types Packs/Day Years Used Date Never Smoker Smokeless Tobacco: Never Used Alcohol Use Standard Drinks/Week Comments Yes 3 (1 standard drink = 0.6 oz pure [...] this encounter Miscellaneous Notes Telephone Encounter - Rachel Lima CMA - 01/08/2016 4:43 PM EDT Refill request prepped, pharmacy called, updated and sent to Michelle for review and signature. Telephone Encounter - Ofelia Webb - 01/08/2016 4:25 PM EDT Name of Med: Carbitrol ER-Brand name medically nessecary Strength of Pills: 300mg Dosing Directions: Take 1 pill twice daily 30 or 90 Day: 90 day supply with 3 refills Pharmacy: [facility] [place] Last Appointment: 01/19/15 Next Appointment: 02/12/16 Is Patient out of Medication?: Yes documented in this encounter Plan of Treatment Upcoming Encounters Date Type Specialty Care Team Description 06/20/2022 Procedure visit Neurology Fernando Garcia MD [facility] NEUROLOGY DEPT. [place], [place] [address] (Wo rk) 06/20/2022 Office Visit Neurology Aidan Resendiz MD [facility] NEUROLOGY DEPT. [place], [place] [address] (Wo rk) documented as of this encounter Visit Diagnoses Not on filedocumented in this encounter Care Teams Electrophysiology Technologist Relationship Specialty Start Date End Date Racquel Nevarez MD PCP - General 06/15/[address] [place] [address] [address] [place] [address] documented as of this encounter
--- OUTSIDE RECORDS SUMMARY | 2022-05-26 09:59 | XMS_ITS | Encounter Summary ---
:1950 Author Organization [facility] [place] [address] Care Team Providers Name Role Phone Racquel Nevarez MD Primary Care Provider Reason for Visit Reason Onset Date Comments Medication Refill 01/08/2016 Encounter Details Date Type Department Care Team Description 01/08/2016 Refill Neurology at [facility] [place] Michelle Graves APRN [facility] [place] [address] NEUROLOGY DEPT. [phone] [place], [place] [address] (Wo rk) Social History Tobacco [...] place to sleep or slept in a care home (including now)? Sex Assigned at Date Recorded Not on file documented as of this encounter Plan of Treatment Upcoming Encounters Date Type Specialty Care Team Description 06/20/2022 Procedure visit Neurology Fernando Garcia MD [facility] NEUROLOGY DEPT. [place], [place] [address] (Wo rk) 06/20/2022 Office Visit Neurology Aidan Resendiz MD [facility] NEUROLOGY DEPT. [place], [place] [address] (Wo rk) documented as of this encounter Visit Diagnoses Not on filedocumented in this encounter Care Teams Veterinary Technician Instructor Relationship Specialty Start Date End Date Racquel Nevarez MD PCP - General 06/15/[address] [place] [address] documented as of this encounter
--- OUTSIDE RECORDS SUMMARY | 2022-05-26 09:59 | XMS_ITS | Encounter Summary ---
:1950 Author Organization [facility] Address [facility] [place] [address] Care Team Providers Name Role Phone Racquel Nevarez MD Primary Care Provider Encounter Details Date Type Department Care Team Description 05/22/2018 Office Visit Neurology at [facility] Aidan Resendiz, Partial symptomatic [facility] epilepsy with complex Drive [facility] partial seizures, not [place], [place] DR intractable, without [id number] NEUROLOGY DEPT. status epilepticus [phone] [place], [place] [address] Social History Tobacco Use Types Packs/Day Years [...] Sign Reading Time Taken Comments Blood Pressure 159/73 05/22/2018 10:52 AM EDT Pulse 69 05/22/2018 10:52 AM EDT Temperature - - Respiratory Rate - - Oxygen Saturation - - Inhaled Oxygen Concentration - - Weight 66.9 kg (147 lb 6.4 oz) 05/22/2018 10:52 AM EDT Height 170.2 cm (5' 7) 05/22/2018 10:52 AM EDT reporte d Body Mass Index 23.09 05/22/2018 10:52 AM EDT documented in this encounter Patient Instructions Patient InstructionsAidan Resendiz MD - 05/22/2018 11:00 AM EDT I think you're doing quite well Seizures appear to be controlled Please stay on the Carbatrol. Please ask your PCPs office to send any lab results. Your eczema seems to be doing very well. You can continue to use triamcinolone as needed With regard to your allergies, it seems that the older antihistamines worked better for you and occasional use of Chlor-Trimeton is very reasonable option. I would like to see you back in a year or sooner if necessary Aidan Resendiz MD Department of Neurology [address] [address], [place] [address] Pager: [phone], #[phone] Email: [email or web address] documented in this encounter Progress Notes Aidan Resendiz MD - 05/22/2018 11:00 AM EDT Neurology clinic note Chief Complaint: Epilepsy. History: The patient is seen in followup today. 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 He has had rare secondarily generalized seizures. Seizures are fully controlled on Carbatrol. She has about one aura of d??j?? vu per month. MRI scan was normal. She continues to do well. She has had no seizures, and has had occasional auras auras. Her general health has been good. She had a new problem of vertigo. She had a bad viral infection followed by episodes of positional vertigo and dizziness. We repeated an MRI scan with fine cuts through the posterior fossa that was unremarkable. Physical therapy with the Carlos maneuver resulted in resolution of her symptoms supportinga diagnosis of benign positional vertigo. Interval history: Overall she feels she is doing well. She has had no seizures. She has occasional minor auras. She has had some minor orthopedic problems with tendinitis in the shoulders. Recently she strained some muscles in her back and feels quite stiff. She has minor recurrences of vertigo with upper respiratory infections, but not at other times and this is not disabling. She is still troubled by allergies and finds that occasional use of Chlor- Trimeton is the best option. The new antihistamines do not work for her She was having some atopic dermatitis that has improved with triamcinolone cream. Past Medical history: Patient Active Problem List Diagnosis Code ??? Epilepsy G40.909 ??? Arthritis M19.90 ??? Vertigo R42 Review of systems: She is eating or right. Sleep is disturbed. Bowel and bladder function are normal. Social history: Her son is now . Her daughter is already . She and her have 2 grandchildren. He has recovered from his bad attack of Lyme disease. Physical Exam: BP 159/73 (BP Location (NBP): Right arm, Patient Position: Sitting, BP Cuff Sizes: Adult (25-34 cm)) Pulse 69 Ht 170.2 cm (5' 7) Comment: reported Wt 66.9 kg (147 lb 6.4 oz) BMI 23.09 kg/m?? Head, eyes, ears, nose, and throat were normal. There was no adenopathy Heart and lungs were normal. Extremities were unremarkable except for some distal arthritic changes. Atopic dermatitis seems resolved She has some back muscle spasm. She is mentally intact and speech was normal. Cranial nerves were normal. I could not elicit any nystagmus or vertigo today Strength was normal. Reflexes were 2+ and symmetrical . There was no Babinski sign Sensation was normal. Cerebellar function testing was noteworthy for normal finger to nose movement. Her gait was stable. Medications: Current Outpatient Prescriptions Medication Sig Dispense Refill ??? naproxen sodium (ANAPROX) 220 mg Tablet Take 220 mg by mouth daily. ??? carBAMazepine (CARBATROL) 300 mg Cap, Multiphasic Release 12 hr Take 1 capsule by mouth 2 times daily. Brand name only. 180 capsule 3 ??? triamcinolone (KENALOG) 0.1 % Cream Apply topically 2 times daily as needed. 30 g 3 ??? Psyllium Husk (METAMUCIL) 0.52 gram Capsule Take 0.52 g by mouth nightly. ??? CALCIUM CARBONATE/VITAMIN D3 (CALCIUM + D ORAL) Take 1 tablet by mouth daily. ??? chlorpheniramine 4 mg tabs Take 4 mg by mouth daily. ??? vitamin E 400 unit capsule Take 400 Units by mouth daily. ??? Simethicone (GAS-X ULTRA-STRENGTH) 180 mg Cap Take 1 tablet by mouth as needed. ??? ESTRADIOL (ESTRACE VAGL) Place vaginally every other day. ??? MULTIVITAMIN WITH MINERALS (MULTIVITAMIN AND MINERALS ORAL) Take 1 tablet by mouth daily. No current facility-administered medications for this visit. Laboratory studies: None ordered here today. Screening laboratory studies normal here in 2012, and in [facility] in 2015. Impression: The patient is doing well. 1. Seizures are fully controlled. She is having occasional auras. I think she should stay on the Carbatrol indefinitely. I am keeping her on the brand name drug. 2. The problem of dizziness was almost [...] atopic dermatitis of the arms. Triamcinolone cream seems to work quite well. 5. Her blood pressure seems well controlled here today. Thank you for this consultation. I will see her back in 12 months or sooner if necessary. Aidan Resendiz MD [place] [address] Pager: [phone], #[phone] Email: [email or web address] cc: Racquel Nevarez MD documented in this encounter Plan of Treatment Upcoming Encounters Date Type Specialty Care Team Description 06/20/2022 Procedure visit Neurology Fernando Garcia MD [facility] NEUROLOGY DEPT. [place], [place] [address] (Manuel meredith) 06/20/2022 Office Visit Neurology Aidan Resendiz MD [facility] NEUROLOGY DEPT. [place], [place] [address] (Manuel meredith) documented as of this encounter Visit Diagnoses Diagnosis Partial symptomatic epilepsy with comple x partial seizures, not intractable, without status epilepticus documented in this encounter Care Teams Aerospace Physiological Technician Relationship Specialty Start Date End Date Racquel Nevarez MD PCP - General 06/15/[address] [place] [address] documented as of this encounter
--- OUTSIDE RECORDS SUMMARY | 2022-05-26 09:59 | XMS_ITS | Encounter Summary ---
:1950 Author Organization [place] [address] Care Team Providers Name Role Phone Racquel Nevarez MD Primary Care Provider Reason for Visit Reason Comments Follow-up Encounter Details Date Type Department Care Team Description 05/06/2020 Office Visit Neurology at [facility] Aidan Resendiz, Partial symptomatic epilepsy with complex partial seizures, not intractable, without status epilepticus; [facility] [place] [address] NEUR[address] DEPT[address] [phone] [place], [place] [address] Social History Tobacco Use Types [...] place to sleep or slept in a mcc (including now)? Sex Assigned at Date Recorded Not on file documented as of this encounter Last Filed Vital Signs Vital Sign Reading Time Taken Comments Blood Pressure 149/85 05/06/2020 10:57 AM EDT Pulse 78 05/06/2020 10:57 AM EDT Temperature - - Respiratory Rate - - Oxygen Saturation 97% 05/06/2020 10:57 AM EDT Inhaled Oxygen Concentration - - Weight 62.6 kg (138 lb) 05/06/2020 10:57 AM EDT Height 170.2 cm (5' 7) 05/06/2020 10:57 AM EDT Body Mass Index 21.61 05/06/2020 10:57 AM EDT documented in this encounter Patient Instructions Patient InstructionsAidan Resendiz MD - 05/06/2020 11:00 AM EDT I think you're doing quite well Seizures appear to be controlled Please stay on the Carbatrol. Your blood test results from 2017 look fine. I do not think we need any today. Atopic dermatitis seems to be doing very well. You can continue to use triamcinolone as needed. With regard to your allergies, it seems that the older antihistamines worked better for you and occasional use of Chlor-Trimeton is very reasonable option. I would like to see you back in a year or sooner if necessary Aidan Resendiz MD Department of Neurology [address] [address], [place] [address] Pager: [phone], #[phone] Email: [email or web address] documented in this encounter Progress Notes Aidan Resendiz MD - 05/06/2020 11:00 AM EDT Neurology clinic note Chief [...] triamcinolone cream. She still has whitecoat hypertension Interval history: As of 2019 she continues to do well. She has had no seizures. She has occasional minor auras. Symptoms of back pain and other arthritic symptoms have gradually subsided. She has had no recurrence of vertigo. She continues to have some upper respiratory allergy symptoms. Her blood pressure has been stable. Past Medical history: Patient Active Problem List Diagnosis Code ??? Epilepsy G40.909 ??? Arthritis M19.90 ??? Vertigo R42 Review of systems: She is eating or right. Sleep is disturbed. Bowel and bladder function are normal. Social history: Her son is now . Her daughter is already . She and her have 2 grandchildren. He is scheduled to retire from his work in orthopedic surgery at the end of this year. Physical Exam: BP 149/85 Pulse 78 Ht 170.2 cm (5' 7) Wt 62.6 kg (138 lb) SpO2 97% BMI 21.61 kg/m?? Head, eyes, ears, nose, and throat [...] Outpatient Medications Medication Sig Dispense Refill ??? CarbatroL 300 mg Cap, Multiphasic Release 12 hr Take 1 capsule by mouth 2 times daily. BRAND NAME ONLY 180 capsule 3 ??? naproxen sodium (ANAPROX) 220 mg Tablet Take 220 mg by mouth daily. ??? chlorpheniramine (CHLOR-TRIMETON) 4 mg Tablet Take 1 tablet by mouth 2 times daily as needed forAllergies. 30 tablet 0 ??? CALCIUM CARBONATE/VITAMIN D3 (CALCIUM + D ORAL) Take 1 tablet by mouth daily. ??? vitamin E 400 unit capsule Take 400 Units by mouth daily. ??? ESTRADIOL (ESTRACE VAGL) Place vaginally every other day. ??? MULTIVITAMIN WITH MINERALS (MULTIVITAMIN AND MINERALS ORAL) Take 1 tablet by mouth daily. ??? triamcinolone (KENALOG) 0.1 % Cream Apply topically 2 times daily as needed. (Patient not taking: Reported on 05/06/2020) 30 g 3 ??? Psyllium Husk (METAMUCIL) 0.52 gram Capsule Take 0.52 g by mouth nightly. ??? Simethicone (GAS-X ULTRA-STRENGTH) 180 mg Cap Take 1 tablet by mouth as needed. No current facility-administered medications for this visit. Laboratory studies: None ordered here today. Screening laboratory studies normal here in 2012, and in [facility] in 2014, and 2016. CBC chemistry liver profile and cholesterol are all unremarkable. Tegretol level was 7.8. Impression: The patient is doing well. 1. [...] be whitecoat hypertension not in need of treatment.. Thank you for this consultation. I will see her back in 12 months or sooner if necessary. Aidan Resendiz MD [place] [address] Pager: [phone], #[phone] Email: [email or web address] CC: Racquel Nevarze MD documented in this encounter Plan of Treatment Upcoming Encounters Date Type Specialty Care Team Description 06/20/2022 Procedure visit Neurology Fernando Garcia MD [facility] NEUROLOGY DEPT. [place], [place] [address] (Wo rk) 06/20/2022 Office Visit Neurology Aidan Resendiz MD [facility] NEUROLOGY DEPT. [place], [place] [address] (Wo rk) documented as of this encounter Visit Diagnoses Diagnosis Partial symptomatic epilepsy with comple x partial seizures, not intractable, without status epilepticus Vertigo Dizziness and giddiness documented in this encounter Care Teams Hr Generalist Relationship Specialty Start Date End Date Racquel Nevarez MD PCP - General 06/15/[address] [place] [address] documented as of this encounter
--- OUTSIDE RECORDS SUMMARY | 2022-05-26 09:59 | XMS_ITS | Encounter Summary ---
:1950 Author Organization [facility] [place] [address] Care Team Providers Name Role Phone Racquel Nevarez MD Primary Care Provider Encounter Details Date Type Department Care Team Description 12/20/2012 Hospital Encounter MRI at [facility] Aidan Resendiz MD Epilepsy [facility] [place] [address] NEUROLOGY DEPT. [phone] [place], [place] [address] (Wo rk) Social History Tobacco [...] place to sleep or slept in a group home (including now)? Sex Assigned at Date Recorded Not on file documented as of this encounter Last Filed Vital Signs Vital Sign Reading Time Taken Comments Blood Pressure - - Pulse - - Temperature - - Respiratory Rate - - Oxygen Saturation - - Inhaled Oxygen Concentration - - Weight 66.2 kg (146 lb) 12/20/2012 6:16 AM EDT Height - - Body Mass Index 22.87 12/12/2012 10:09 AM EDT documented in this encounter Medications at Time of Discharge Medication Sig Dispensed Refills Start Date End Date CALCIUM CARBONATE/VITAMIN Take 1 tablet by 0 D3 (CALCIUM + D ORAL) mouth daily. vitamin E 400 unit Take 400 Units by 0 capsule mouth daily. Simethicone 180 mg Take 1 tablet by 0 Capsule mouth as needed. ESTRADIOL (ESTRACE VAGL) Place vaginally 0 2010 every other day. MULTIVITAMIN WITH Take 1 tablet by 0 02/01/2011 MINERALS (MULTIVITAMIN mouth daily. AND MINERALS ORAL) DIPHENHYDRAMINE HCL Take 4 mg by mouth 0 05/09/2017 (ANTIHISTAMINE ORAL) daily. meclizine (ANTIVERT) 12.5 Take 1 tablet by 100 tablet 5 11/2212/20/2013 mg tablet mouth 3 times daily as needed. carBAMazepine (CARBATROL) Take 1 capsule by 180 capsule 3 12/20/2013 300 mg 12 hr mouth 2 times capsuleIndications: daily. Epilepsy naproxen sodium (ALEVE) Take 220 mg by 0 02/02/20 11 01/19/2015 220 mg tablet mouth daily. documented as of this encounter Progress Notes Lola Faustin RN - 12/18/2012 9:20 AM EDT VIR MRI PRE-SEDATION ASSESSMENT NOTE NAME: Sanjuana Belle AGE: 62 y.o. : 1950 Female [phone] (home) No relevant phone numbers on file. PCP STOREPERSON RACQUEL NEVAREZ MD None Allergies Allergen Reactions ??? Erythromycin Base Diarrhea ??? Xanax (Alprazolam) Per patient, unknown reaction. ??? Allergenic Extracts Cats, dogs, saravia, trees, grass, mold, mildew, ragweed, and hay. Date/Time of call: December 18, 2012/9:20 AM/ PREVIOUS MRI SCAN? YES HEIGHT: 5' 7 WEIGHT: 142 lbs HAVE YOU EVER BEEN DX. WITH SLEEP APNEA? DO YOU USE CPAP/BIPAP? SCHEDULED SCAN: MRI head SUBJECTIVE: Yes, I'm a little claustrophobic, I had an MRI before but it was about 19 years ago, are they still the same? ASSESSMENT: Patient appropriate for po sedation PLAN: Diazepam per protocol PRIOR SCAN DATE/S SEDATION TYPE SUCCESSFUL 12/20/12 MRI head Valium 5mg po yes PT WILL ARRIVE 1 HR. BEFORE SCHEDULED SCAN AND HAVE A CNA PER DIEM AVAILABLE. PT STATED TO POULTRY FARM WORKER THAT THE SEDATION WAS EFFECTIVE FOR SCAN: Y N COMMENTS: This patient has been informed that they require a bulk truck driver to drive them home after this procedure. In the absence of a bulk truck driver, IR will not be able to perform this procedure and will need to reschedule.Pt verbalized understanding of these instructions during the pre-procedure education via phone. documented in this encounter Miscellaneous Notes Miscellaneous - Provider, Scanning - 01/01/2013 9:08 AM EDT documented in this encounter Plan of Treatment Upcoming Encounters Date Type Specialty Care Team Description 06/20/2022 Procedure visit Neurology Fernando Garcia MD [facility] NEUROLOGY DEPT. [place], [place] [address] (Wo rk) 06/20/2022 Office Visit Neurology Aidan Resendiz MD [facility] NEUROLOGY DEPT. [place], [place] [address] (Wo rk) documented as of this encounter Procedures Procedure Name Priority Date/Time Associated Diagnosis Comme nts MRI BRAIN WWO Routine 12/20/2012 5:35 PM Epilepsy Results for this CONTRAST (GENERIC) EDT procedure are in the results section. documented in this encounter Results MRI brain with/WO contrast (12/20/2012 5:35 PM EDT) Anatomical Region Laterality Modality Head Magnetic Resonance Specimen (Source) Anatomical Collection Method Collection Time Re ceived Time Location / / Volume Laterality 12/20/2012 5:35 PM EDT Narrative 12/20/2012 7:35 PM EDT Examination MR BRAIN W/WO CONTRAST Clinical History acoustic protocol Right vestibular dysfunction ?? Probably benign positional vertigo ?? r/o structural lesion Comparison None Technique MRI of the brain with attention to the I AC's performed prior to and following intravenous administration of 13 mL Magn evist. Findings The ventricles are normal in size and co ntour. ??There is no intracranial mass, mass effect, or shift. 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 ??There is no evidence of recent infarct. ??Ther e is no abnormal enhancement the brain parenchyma. The internal auditory canals are normal bilaterally without evidence of mass, or abnormal enhancement. ??There are deg enerative changes at the temporomandibular joints bilaterally, es pecially on the left where there is loss of joint space, subchondral scleros is and cyst formation consistent with osteoarthritis. ??There is a small amoun t of mucosal thickening in the inferior right maxillary sinus. Impression No IAC mass or abnormal enhancement. Procedure Note Cralos Barry MD - 12/20/2012Format ting of this note might be different from the original. Examination MR BRAIN W/WO CONTRAST Clinical History acoustic protocol Right vestibular dysfunction Probably benign positional vertigo r/o structural lesion Comparison None Technique MRI of the brain with attention to the I AC's performed prior to and following intravenous administration of 13 mL Magn evist. Findings The ventricles are normal in size and co ntour. There is no intracranial mass, mass effect, or shift. 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 There is no evidence of recent infarct. There is no abnormal enhancement the brain parenchyma. The internal auditory canals are normal bilaterally without evidence of mass, or abnormal enhancement. There are degen erative changes at the temporomandibular joints bilaterally, es pecially on the left where there is loss of joint space, subchondral scleros is and cyst formation consistent with osteoarthritis. There is a small amount of mucosal thickening in the inferior right maxillary sinus. Impression No IAC mass or abnormal enhancement. Aidan Resendiz MD IMG MRI ORDERABLES documented in this encounter Visit Diagnoses Diagnosis Epilepsy Unspecified epilepsy without mention of intractable epilepsy documented in this encounter Administered Medications Inactive Administered Medications - up to 3 most recent administrations Medication Order MAR Action Action Date Dose Rate Site diaZEPam (VALIUM) tablet 5 mg Given 12/20/2012 3:20 PM EDT 5 mg 5 mg, Oral, EVERY 30 MIN PRN, 2 doses, Starting on Paulette 12/20/12 at 1530, Until Paulette 12/20/12 at 1630, Anxiety, Angio/IR (Day of Procedure), Routine gadopentetate dimeglumine (MAGNEVIST) Given 12/20/2012 4:00 PM E DT 13 mLs injection 13 mL 13 mL (0.2 mL/kg/dose ? 66.2 kg), Intravenous, ONCE PRN, 1 dose, Starting on Paulette 12/20/12 at 0616, Until Paulette 12/20/12 at 1600, Per Protocol, Routine documented in this encounter Care Teams Executive Business Coach Relationship Specialty Start Date End Date Racquel Nevarez MD PCP - General 06/15/[address] [place] [address] documented as of this encounter
--- OUTSIDE RECORDS SUMMARY | 2022-05-26 09:59 | XMS_ITS | Encounter Summary ---
:1950 Author Organization [facility] [place] [address] Care Team Providers Name Role Phone Racquel Nevarez MD Primary Care Provider Encounter Details Date Type Department Care Team Description 05/09/2017 Office Visit Neurology at [facility] Aidan Resendiz, Partial symptomatic [facility] epilepsy with complex Drive [facility] partial seizures, not [place], [place] DR intractable, without [phone] NEUR[address]PT[address] status epilepticus [phone] [place], [place] [address] Social History Tobacco Use Types Packs/Day Years [...] place to sleep or slept in a residential (including now)? Sex Assigned at Date Recorded Not on file documented as of this encounter Last Filed Vital Signs Vital Sign Reading Time Taken Comments Blood Pressure 122/82 05/09/2017 11:24 AM EDT Pulse - - Temperature - - Respiratory Rate - - Oxygen Saturation - - Inhaled Oxygen Concentration - - Weight 65.8 kg (145 lb) 05/09/2017 11:24 AM EDT Height 170.2 cm (5' 7) 05/09/2017 11:24 AM EDT Body Mass Index 22.71 05/09/2017 11:24 AM EDT documented in this encounter Patient Instructions Patient InstructionsAidan Resendiz MD - 05/09/2017 11:30 AM EDT I think you're doing quite well Seizures appear to be controlled Please stay on the Carbatrol. Please ask your PCPs office to send any lab results. Your eczema seems to be doing very well With regard to your allergies, as Claritin did not work for you, I suggest you try Dorcas 60 mg once or twice a day as needed, or Zyrtec 10 mg daily as needed, and see if either of those will work foryou and not be sedating. I would like to see you back in a year or sooner if necessary Aidan Resendiz MD Department of Neurology [facility] [address], [place] [address] Pager: [phone], #[phone] Email: [email or web address] documented in this encounter Progress Notes Aidan Resendiz MD - 05/09/2017 11:30 AM EDT Neurology clinic note Chief Complaint: [...] had no seizures. She has occasional minor auras, a total of 7 this year. She has had some minor orthopedic problems with tendinitis in the shoulders. She has minor recurrences of vertigo with upper respiratory infections, but not at other times and this is not disabling.. She is still concerned about the possible side effects of antihistamine drugs. Claritin did not workfor her. She was having some atopic dermatitis that has improved with triamcinolone cream. Past Medical history: Patient Active Problem List Diagnosis Code ??? Epilepsy G40.909 ??? Arthritis M19.90 ??? Vertigo R42 Review of systems: She is eating or right. Sleep is disturbed. Bowel and bladder function are normal. Social history: Her youngest son is getting . Her daughter is already . She and her have 2 grandchildren. He recently suffered a severe attack of Lyme disease but is getting better Physical Exam: BP 122/82 Ht 170.2 cm (5' 7) Wt 65.8 kg (145 lb) BMI 22.71 kg/m2 Head, eyes, ears, nose, and throat were normal. There was no adenopathy Heart and lungs were normal. Extremities were unremarkable except for some distal arthritic changes. Atopic dermatitis seems resolved She is mentally intact and speech was normal. Cranial nerves were normal. I could not elicit any nystagmus or vertigo today Strength was normal. Reflexes were 2+ and symmetrical Sensation was normal. Cerebellar function testing was [...] studies normal here in 2012, and in [facility] in 2015. Impression: The patient is doing [...] scan of the brain was normal. 3. Her concern about the daily use of chlorpheniramine or Benadryl or any of the older antihistaminedrugs is appropriate. I'm somewhat alarmed myself at the association with Alzheimer disease that is now being reported. As she needs daily medication, and Claritin did not work for her, I suggested that she try Dorcas 60 mg twice a day when necessary or Zyrtec 10 mg daily when necessary. 4. She had some atopic dermatitis of the arms. Triamcinolone cream seems to work quite well. 5. Her blood pressure seems well controlled here today. Thank you for this consultation. I will see her back in 12 months or sooner if necessary. Aidan Resendiz MD [place] [address] Pager: [phone], #[phone] Email: [email or web address] cc: Racquel Nevarez MD documented in this encounter Plan of Treatment Upcoming Encounters Date Type Specialty Care Team Description 06/20/2022 Procedure visit Neurology Fernando Garcia MD [facility] NEUROLOGY DEPT. [place], [place] [address] (Wo viri) 06/20/2022 Office Visit Neurology Aidan Resendiz MD [facility] NEUROLOGY DEPT. 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
--- OUTSIDE RECORDS SUMMARY | 2022-05-26 09:59 | XMS_ITS | Encounter Summary ---
:1950 Author Organization [facility] [place] [address] Care Team Providers Name Role Phone Racquel Nevarez MD Primary Care Provider Reason for Visit Reason Onset Date Comments Other 01/25/2013 MRI results Encounter Details Date Type Department Care Team Description 01/25/2013 Telephone Neurology at [facility] Aidan Resendiz MD Other (MRI results) [facility] [place] [phone] NEUROLOGY DEPT. [place], [place] [address] (Wo rk) Social History Tobacco [...] this encounter Miscellaneous Notes Telephone Encounter - Pamella Camejo LPN - 01/25/2013 3:06 PM EDT Follow up call: I spoke to pt to inform her that Dr Resendiz reviewed her MRI from November and there was no mass or lesion found. Telephone Encounter - Valerie Scanlon - 01/25/2013 1:46 PM EDT Patient called wondering the results of her MRI from the end of November - patient stated she never heardwhat they were. Please call the patient to discuss. documented in this encounter Plan of Treatment Upcoming Encounters Date Type Specialty Care Team Description 06/20/2022 Procedure visit Neurology Fernando Garcia MD [facility] NEUROLOGY DEPT. [place], [place] [address] (Wo rk) 06/20/2022 Office Visit Neurology Aidan Resendiz MD [facility] NEUROLOGY DEPT. [place], [place] [address] (Wo rk) documented as of this encounter Visit Diagnoses Not on filedocumented in this encounter Care Teams Hot Blaster Relationship Specialty Start Date End Date Racquel Nevarez MD PCP - General 06/15/[address] [place] [address] documented as of this encounter
--- OUTSIDE RECORDS SUMMARY | 2022-05-26 09:59 | XMS_ITS | Encounter Summary ---
:1950 Author Organization [facility] [place] [address] Care Team Providers Name Role Phone Racquel Nevarez MD Primary Care Provider Encounter Details Date Type Department Care Team Description 04/21/2021 Office Visit Neurology at [facility] Aidan Resendiz, Partial symptomatic epilepsy with complex partial seizures, not intractable, without status epilepticus; [facility] Hereditary and idiopathic neuropathy, un specified ; Drive [facility] Abnormal finding of blood ch [place]istry, [place] [address] NEUROLOGY DEPT. [phone] [place], [place] [address] Social History Tobacco Use Types [...] place to sleep or slept in a snf (including now)? Sex Assigned at Date Recorded Not on file documented as of this encounter Last Filed Vital Signs Vital Sign Reading Time Taken Comments Blood Pressure 150/78 04/21/2021 11:02 AM EDT Pulse 73 04/21/2021 11:02 AM EDT Temperature - - Respiratory Rate - - Oxygen Saturation - - Inhaled Oxygen Concentration - - Weight 62.1 kg (137 lb) 04/21/2021 11:02 AM EDT reporte d Height 170.2 cm (5' 7) 04/21/2021 11:02 AM EDT reporte d Body Mass Index 21.46 04/21/2021 11:02 AM EDT documented in this encounter Patient Instructions Patient InstructionsAidan Resendiz MD - 04/21/2021 11:00 AM EDT I think you're doing quite well Seizures appear to be controlled Please stay on the Carbatrol. The generic formulation should be okay. 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 This is probably normal aging of the nerves. However we should rule out reversible causes so I would like you to get some blood test done here today. Atopic dermatitis seems to be doing very well. You can continue to use triamcinolone as needed. With regard to your allergies, it seems that the older antihistamines worked better for you, and occasional use of Chlor-Trimeton is very reasonable option. I would like to see you back in a year or sooner if necessary Aidan Resendiz MD Department of Neurology [facility] [address], [place] [address] Pager: [phone], #[phone] Email: [email or web address] documented in this encounter Progress Notes Aidan Resendiz MD - 04/21/2021 11:00 AM EDT Neurology clinic note Chief [...] We made no change in her regimen. Interval history: As of 2020, she is doing better. [...] There has been no recurrence of vertigo. Past Medical history: Patient Active Problem List Diagnosis ??? Atrophic vaginitis ??? Osteopenia ??? 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 Physical Exam: BP 150/78 Pulse 73 Ht 170.2 cm (5' 7) Comment: reported Wt 62.1 kg (137 lb) Comment: reported BMI 21.46 kg/m?? Head, eyes, ears, nose, and throat were normal. There was no adenopathy Heart and lungs were normal. Extremities were unremarkable except for some distal arthritic changes. Atopic dermatitis seems resolved She is mentally intact and speech was normal. Cranial nerves were normal. I could not elicit any nystagmus or vertigo today Strength was normal. Reflexes were 2+ and symmetrical, but I could not today elicit ankle reflexes. There was no Babinskisign Sensation was substantially normal, but there is diminished vibration sense at the ankles Cerebellar function testing was noteworthy for normal [...] studies normal here in 2012, and in [facility] in 2014, and 2017. CBC chemistry liver profile and cholesterol are all unremarkable. Tegretol level was 7.8. Orders Placed This Encounter Procedures ??? Basic Metabolic Panel (non-fasting) ??? [...] level, total ??? Hemogram ??? Differential, Automated Impression: The patient is doing quite well neurologically. There were medical issues as described above that seem to have settled down now 1. Seizures are fully controlled. She is [...] causes of neuropathy as listed above. She does not really have symptoms, and I would not treat in any way at this time Thank you for this consultation. I will see her back in 12 months or sooner if necessary. Aidan Resendiz [place] [address] Pager: [phone], #[phone] Email: [email or web address] CC: Racquel Nevarez MD documented in this encounter Plan of Treatment Upcoming Encounters Date Type Specialty Care Team Description 06/20/2022 Procedure visit Neurology Fernando Garcia MD [facility] NEUROLOGY DEPT. [place] [address] (Wo rk) 06/20/2022 Office Visit Neurology Aidan Resendiz MD [facility] NEUROLOGY DEPT. [place], [place] [address] (Wo rk) documented as of this encounter Procedures Procedure Name Priority Date/Time Associated Comments Diagnosis HC LYME DISEASE, PATRICIA Routine 04/21/2021 12:16 Partial sympto matic Results for this PM EDT epilepsy with procedure are in complex partial the results seizures, not section. intractable, without status epilepticus HC PCH LAMOTRIGINE Routine 04/21/2021 12:16 Partial symptomati c Results for this PM EDT epilepsy with procedure are in complex partial the results seizures, not section. intractable, without status epilepticus HEMOGRAM Routine 04/21/2021 12:16 Partial symptomatic Resu lts for this PM EDT epilepsy with procedure are in complex partial the results seizures, not section. intractable, without status epilepticus DIFFERENTIAL, AUTOMATED Routine 04/21/2021 12:16 Partial sympt omatic Results for this PM EDT epilepsy with procedure are in complex partial the results seizures, not section. intractable, without status epilepticus HC TISSUE Routine 04/21/2021 12:16 Partial symptomatic Resu lts for this TRANSGLUTAMINASE AB PM EDT epilepsy with procedu re are in complex partial the results seizures, not section. intractable, without status epilepticus HC ESR-SEDIMENTATION Routine 04/21/2021 12:16 Partial symptoma tic Results for this RATE, BLOOD PM EDT epilepsy with procedure are in complex partial the results seizures, not section. intractable, without status epilepticus HC CBC,PLT & AUTO DIFF Routine 04/21/2021 12:16 Partial sympto matic PM EDT epilepsy with complex partial seizures, not intractable, without status epilepticus HC RHEUMATOID FACTOR Routine 04/21/2021 12:16 Partial symptoma tic Results for this PM EDT epilepsy with procedure are in complex partial the results seizures, not section. intractable, without status epilepticus HC PCH ANGIOTENSIN Routine 04/21/2021 12:16 Partial symptomati c Results for this CONVERTING ENZYME PM EDT epilepsy with procedure are in complex partial the results seizures, not section. intractable, without status epilepticus HC P[facility] ANATITRE Routine 04/21/2021 12:16 Partial symptomatic R esults for this (ANDPATTERN) PM EDT epilepsy with procedure are in complex partial the results seizures, not section. intractable, without status epilepticus HC THYROID STIMULATING Routine 04/21/2021 12:16 Partial sympto matic Results for this HORMONE, SERUM PM EDT epilepsy with procedure ar e in complex partial the results seizures, not section. intractable, without status epilepticus Hereditary and idiopathic neuropathy, unspecified HC TOTAL T4 Routine 04/21/2021 12:16 Partial symptomatic Resu lts for this PM EDT epilepsy with procedure are in complex partial the results seizures, not section. intractable, without status epilepticus Hereditary and idiopathic neuropathy, unspecified HC SERUM PROT. Routine 04/21/2021 12:16 Partial symptomatic Re sults for this ELECTROPHORESIS PM EDT epilepsy with procedure a re in complex partial the results seizures, not section. intractable, without status epilepticus HC HEMOGLOBIN A1C Routine 04/21/2021 12:16 Partial symptomatic Results for this PM EDT epilepsy with procedure are in complex partial the results seizures, not section. intractable, without status epilepticus Abnormal finding of blood chemistry, unspecified HC VITAMIN B12 SERUM Routine 04/21/2021 12:16 Partial symptoma tic Results for this PM EDT epilepsy with procedure are in complex partial the results seizures, not section. intractable, without status epilepticus HC CREATINE Routine 04/21/2021 12:16 Partial symptomatic Resu lts for this PHOSPHOKINASE, SERUM PM EDT epilepsy with proced ure are in complex partial the results seizures, not section. intractable, without status epilepticus HC CARBAMAZEPINE LEVEL Routine 04/21/2021 12:16 Partial sympto matic Results for this PM EDT epilepsy with procedure are in complex partial the results seizures, not section. intractable, without status epilepticus HEPATIC FUNCTION PANEL Routine 04/21/2021 12:16 Partial sympto matic Results for this PM EDT epilepsy with procedure are in complex partial the results seizures, not section. intractable, without status epilepticus BASIC METABOLIC PANEL Routine 04/21/2021 12:16 Partial symptom atic Results for this (NON-FASTING) PM EDT epilepsy with procedure are in complex partial the results seizures, not section. intractable, without status epilepticus documented in this encounter Results Differential, Automated (04/21/2021 12:16 PM EDT) athologist Signature Neutrophils % 60.5 % [facility] Neutr Abs (ANC) 2.47 1.70 - [facility] 6.10 [facility] x10(3)/[facility] LABORATORY Lymphocytes % 29.2 % [facility] Lymphocytes Abs 1.2 0.9 - 3.2 [facility] x10(3)/[facility] LABORATORY Monocytes % 9.1 % [facility] Monocyte Abs 0.4 0.3 - 0.9 [facility] x10(3)/[facility] LABORATORY Eosinophils % 0.7 % [facility] Eosinophils Abs 0.0 0.0 - 0.4 [facility] x10(3)/[facility] LABORATORY Basophils % 0.5 % [facility] Basophils Abs 0.0 0.0 - 0.1 [facility] x10(3)/[facility] LABORATORY Immature Gran % 0.00 % [facility] Comment: Immature granulocytes(IG's)percentage an d absolute count will include metamyelocytes, myelocytes, and promyelo cytes. Blood smears from CBCs yielding IG's will be scanned manually for concor dance. If this scan disagrees with the automated IG or if promyelocytes are not ed, a manual differential will be performed. Yelena Gran Abs 0.00 0.00 - 0.04 x10(3)/[facility] MAR Y [facility] LAB[facility]ORY Specimen Anatomical Collection Method Collection Time Receive d Time (Source) Location / / Volume Laterality Blood 04/21/2021 12:16 04/21/2021 PM EDT 12:38 PM EDT Resulting Agency Comment Spec In Lab Aidan Resendiz MD HEMATOLOGY ORDERABLES Performing Organization Address City/State/[place] [address] (ABNORMAL) Hemogram (04/21/2021 12:16 PM EDT) Analysis Performed At Patho logist Time Signature WBC 4.1 4.0 - 9.5 [facility] x10(3)/[facility] LABORATORY RBC 4.23 4.00 - [facility] 5.21 [facility] x10(6)/[facility] LABORATORY Hemoglobin 14.0 11.7 - [place] 15.5 g/dL [facility] Hematocrit 40.6 35.7 - [place] 45.8 % [facility] MCV 96.0 (H) 82.6 - [facility].4 [facility] LABORATORY MCH 33.1 (H) 27.1 - [place] 32.[address] [facility] MCHC 34.5 31.7 - [place] 35.0 g/dL [facility] Platelets 141 (L) 145 - 357 [facility] x10(3)/[facility] LABORATORY RDWSD 43.0 37.0 - [facility] 46.0 [facility] LABORATORY RDWCV 12.1 11.5 - [facility] 14.1 % [facility] MPV 10.6 7.6 - 12.9 [facility] LABORATORY nRBC % Auto 0.0 % [facility] nRBC Abs Auto 0.000 0.000 - [place] 0.000 [facility] x10(3)/[facility] LABORATORY Specimen Anatomical Collection Method Collection Time Receive d Time (Source) Location / / Volume Laterality Blood 04/21/2021 12:16 04/21/2021 PM EDT 12:38 PM EDT Resulting Agency Comment Spec In Lab Aidan Resendiz MD HEMATOLOGY ORDERABLES Performing Organization Address City/[facility]/[place] [address] Carbamazepine level, total (04/21/2021 12:16 PM EDT) [facility] gist Method Time Signature Carbamazepine Lvl 9.1 8.0 - 12.0 [facility] OCK mg/L [facility] Comment: Therapeutic range: ??8-12 mg/L Toxic: ??>/= 15 mg/L Specimen Anatomical Collection Method Collection Time Receive d Time (Source) Location / / Volume Laterality Blood 04/21/2021 12:16 04/21/2021 PM EDT 12:38 PM EDT Resulting Agency Comment Spec In Lab Aidan Resendiz MD CHEMISTRY ORDERABLES Performing Organization Address City/State/ZIP Code Phon e Number [place] Angiotensin Converting Enzyme (04/21/2021 12:16 PM EDT) athologist [facility] IVONNE 25 16 - 85 [facility] [employer] Materials unit/L [facility] Comment: Test Performed by: [facility] - [address] [address] Manager Of Tires Sales: Kyree Bullard M.D. Ph. D.; IA# [id number] Specimen Anatomical Collection Method Collection Time Receive d Time (Source) Location / / Volume Laterality Blood 04/21/2021 12:16 04/21/2021 2:53 PM EDT PM EDT Resulting Agency Comment Spec In Lab Aidan Resendiz MD CHEMISTRY ORDERABLES Performing Organization Address City/[facility]/ZIP Code Phon e Number [address] (ABNORMAL) T4 Total (04/21/2021 12:16 PM EDT) [facility] T4, total 3.0 (L) 5.3 - 11.6 [facility] [employer] mcg/dL [facility] Comment: Reference Interval (mcg/dL): Females: ??First Trimester: 6.3-13.5 ??Second Trimester: 7.1-14.3 ??Third Trimester: 6.9-14.1 Specimen Anatomical Collection Method Collection Time Receive d Time (Source) Location / / Volume Laterality Blood 04/21/2021 12:16 04/21/2021 PM EDT 12:38 PM EDT Resulting Agency Comment Spec In Lab Aidan Resendiz MD CHEMISTRY ORDERABLES Performing Organization Address City/[facility]/[place] [address] CK (04/21/2021 12:16 PM EDT) [facility] CK, Total 61 0 - 160 [facility] [employer] Materials unit/L [facility] Specimen Anatomical Collection Method Collection Time Receive d Time (Source) Location / / Volume Laterality Blood 04/21/2021 12:16 04/21/2021 PM EDT 12:38 PM EDT Resulting Agency Comment Spec In Lab Aidan Resendiz MD CHEMISTRY ORDERABLES Performing Organization Address City/State/[place] [address] Hemoglobin A1c (04/21/2021 12:16 PM EDT) athologist Signature Hemoglobin A1C 5.1 4.3 - 5.6 [facility] Comment: Reference Range: 4.3 - 5.6% 5.7 - 6.4% - Increased Risk of Developin g Diabetes Mellitus >= 6.5% - Consistent with diagnosis of D iabetes Mellitus In the absence of hyperglycemia (i.e. pl asma glucose > 200 mg/dL) or classic symptoms of hyperglycemia a repeat measu rement of HbA1c should be performed on a separate sample to confirm the diagnos is. Diagnosis and Classification of Diabetes Mellitus, Diabetes Care 2013; 36: Suppl. 1, U67-42 Est Avg Gluc 100 mg/dL [facility] Comment: eAG equivalents for HbA1c percentages: HbA1c(%) ?eAG(mg/dL) 6.0 ?126 6.5 ?140 7.0 ?154 7.5 ?169 8.0 ?183 8.5 ?197 9.0 ?212 9.5 ?226 10.0 ? 240 Limitations: The eAG calculation has not been validated on women, individuals below 18 years old and above 70 years old, and individuals with hemoglobinopathies. Additional resources are available on ADA website. Sudeep FLYNN, Andrsé J, Juan Carlos R, et al. ??Tr anslating the A1C assay into estimated average glucose values. ??Diabetes Care 2008:31(8):9633-7828. Specimen Anatomical Collection Method Collection Time Receive d Time (Source) Location / / Volume Laterality Blood 04/21/2021 12:16 04/21/2021 PM EDT 12:38 PM EDT Resulting Agency Comment Spec In Lab Aidan Resendiz MD CHEMISTRY ORDERABLES Performing Organization Address City/[facility]/ZIP Code Phon e Number [address] Rheumatoid factor, quant (04/21/2021 12:16 PM EDT) P athologist Signature RF 13 <=14 IU/mL [facility] Specimen Anatomical Collection Method Collection Time Receive d Time (Source) Location / / Volume Laterality Blood 04/21/2021 12:16 04/21/2021 PM EDT 12:38 PM EDT Resulting Agency Comment Spec In Lab Aidan Resendiz MD IMMUNOLOGY ORDERABLES Performing Organization Address City/[facility]/ZIP Code Phon e Number [address] Protein Electrophoresis, serum (04/21/2021 12:16 PM EDT) Patholo gist Method Time Signature Total Prot 7.3 6.1 - 8.0 [facility] Elec g/dL [facility] Albumin Elect 4.69 3.60 - 6.00 [facility] g/dL [facility] Alpha1-Globul 0.15 0.10 - 0.30 [facility] in g/dL [facility] Alpha2-Globul 0.87 0.40 - 0.90 [facility] in g/dL [facility] Beta Globulin 0.73 0.50 - 1.00 [facility] g/dL [facility] Gamma 0.87 0.50 - 1.30 [facility] Globulin g/dL [facility] M1 Band None None [facility] Detected Detected [facility] Specimen Anatomical Collection Method Collection Time Receive d Time (Source) Location / / Volume Laterality Blood 04/21/2021 12:16 04/21/2021 PM EDT 12:38 PM EDT Resulting Agency Comment Spec In Lab Aidan Resendiz MD CHEMISTRY ORDERABLES Performing Organization Address [facility]/ZIP Code Phon e Number [facility] [address] CARRILLO (04/21/2021 12:16 PM EDT) Component Value Ref Test Analysis Performed At [facility] Range Method Time Signature Antinuclear Ab [facility] Test ?Result ? Flag ??Unit ??RefValue [facility]INT [place] MDL [facility] Antinuclear Ab, HEp-2 ? <1:80 (Negative) ? <1:80 (Negative) HOSPITAL ??Substrate, S LABORATORY ? ADDITIONAL INFORMATION ------ ?Method: Immunofluorescence using HEp-2 cellular substr ate. ?Test Performed by: ?[facility] ?[address] [place] [address] ?Manager Of Tires Sales: Kyree Bullard M.D. Ph.D.; CLIA# [id number] Specimen Anatomical Collection Method Collection Time Receive d Time (Source) Location / / Volume Laterality Blood 04/21/2021 12:16 04/21/2021 2:53 PM EDT PM EDT Resulting Agency Comment Spec In Lab Aidan Resendiz MD IMMUNOLOGY ORDERABLES Performing Organization Address [facility] Code Phon e Number [facility] [address] Tissue transglutaminase, IgA (04/21/2021 12:16 PM EDT) athologist Signature TTG IgA Ab 0.5 0.1 - 10.0 [facility] u/ml [facility] Comment: Negative = <7 U/mL Equivocal = 7-10 U/mL Positive = >10 U/mL Specimen Anatomical Collection Method Collection Time Receive d Time (Source) Location / / Volume Laterality Blood 04/21/2021 12:16 04/21/2021 2:34 PM EDT PM EDT Resulting Agency Comment Spec In Lab Aidan Resendiz MD IMMUNOLOGY ORDERABLES Performing Organization Address City/[facility] Code Phon e Number [address] Lyme IgG & IgM Antibody (04/21/2021 12:16 PM EDT) athologist Signature Lyme Screening Neg Neg [facility] Antibody [facility]ORY Specimen Anatomical Collection Method Collection Time Receive d Time (Source) Location / / Volume Laterality Blood 04/21/2021 12:16 04/22/2021 7:17 PM EDT AM EDT Resulting Agency Comment Spec In Lab Aidan Resendiz MD IMMUNOLOGY ORDERABLES Performing Organization Address City/[facility] Code Phon e Number [address] Sedimentation rate (04/21/2021 12:16 PM EDT) athologist Signature Sed Rate 26 2 - 39 [facility] [place] mm/hr [facility] Comment: Effective July 03, 2019 new capillar y photometric technology has resulted in a change in reference ranges. It is r ecommended that each ESR result be reviewed with its own age appropriate re ference range. Specimen Anatomical Collection Method Collection Time Receive d Time (Source) Location / / Volume Laterality Blood 04/21/2021 12:16 04/21/2021 PM EDT 12:38 PM EDT Resulting Agency Comment Spec In Lab Aidan Resendiz MD HEMATOLOGY ORDERABLES Performing Organization Address City/[facility]/ZIP Code Phon e Number [address] Hepatic Function Panel (04/21/2021 12:16 PM EDT) athologist [facility] Total Protein 7.3 6.1 - 8.0 [facility] EMMARIA [place]ESUS g/dL [facility] Albumin 4.3 3.2 - 5.2 [facility] [place] [place] g/dL [facility] AST 25 0 - 30 [facility] [place] unit/L [facility] ALT 20 0 - 30 [facility] MARIA DE JESUS unit/L [facility] Alk Phos 91 35 - 105 [facility] MARIA DE JESUS unit/L [facility] Total 0.5 0.2 - 1.3 [facility] [place] Bilirubin mg/dL [facility] Bili, Direct 0.1 0.0 - 0.3 [facility] [place] mg/dL [facility] Specimen Anatomical Collection Method Collection Time Receive d Time (Source) Location / / Volume Laterality Blood 04/21/2021 12:16 04/21/2021 PM EDT 12:38 PM EDT Resulting Agency Comment Spec In Lab Aidan Resendiz MD CHEMISTRY ORDERABLES Performing Organization Address City/[facility]/ZIP Code Phon e Number [address] Vitamin B12 (04/21/2021 12:16 PM EDT) [facility] Vitamin B-12 567 232 - 1,245 [facility] MARIA DE JESUS pg/mL [facility] Specimen Anatomical Collection Method Collection Time Receive d Time (Source) Location / / Volume Laterality Blood 04/21/2021 12:16 04/21/2021 PM EDT 12:38 PM EDT Resulting Agency Comment Spec In Lab Aidan Resendiz MD CHEMISTRY ORDERABLES Performing Organization Address City/[facility]/ZIP Code Phon e Number [address] TSH (04/21/2021 12:16 PM EDT) [facility] TSH 2.32 0.27 - 4.20 [place] [place] mcIU/mL [facility] Comment: Reference Interval (mcIU/mL): Females: ??First Trimester: 0.23-3.88 ??Second Trimester: 0.22-3.90 ??Third Trimester: 0.44-4.66 Specimen Anatomical Collection Method Collection Time Receive d Time (Source) Location / / Volume Laterality Blood 04/21/2021 12:16 04/21/2021 PM EDT 12:38 PM EDT Resulting Agency Comment Spec In Lab Aidan Resendiz MD CHEMISTRY ORDERABLES Performing Organization Address City/[facility]/ZIP Code Phon e Number [address] (ABNORMAL) Lamotrigine Lvl (04/21/2021 12:16 PM EDT) Patholo gist Method Time Signature Lamotrigine Lvl <0.2 (L) 2.5 - [facility] 15.0 [facility]/mL [facility] Comment: ADDITIONAL INFORMATIO N This test was developed and its performa nce characteristics determined by [facility] in a manner co nsistent with CLIA requirements. This test has not been obdulio ared or approved by the U.S. Food and Drug Administration. Test Performed by: [facility] [address] [place] [address] Manager Of Tires Sales: Kyree Bullard M.D. Ph. D.; CLIA# [id number] Specimen Anatomical Collection Method Collection Time Receive d Time (Source) Location / / Volume Laterality Blood 04/21/2021 12:16 04/21/2021 2:53 PM EDT PM EDT Resulting Agency Comment Spec In Lab Aidan Resendiz MD CHEMISTRY ORDERABLES Performing Organization Address City/[facility]/[place] [address] (ABNORMAL) Basic Metabolic Panel (non-fasting) (04/21/2021 12:16 PM EDT) P athologist Signature Glucose Lvl 86 65 - 199 [facility] mg/dL [facility] Comment: Diabetes: >=200 mg/dL plus symp toms BUN 24 (H) 8 - 18 mg/dL [facility] Creatinine 0.80 0.70 - 1.20 mg/dL [facility] Sodium 137 135 - 145 mmol/L [facility] Potassium 4.0 3.5 - 5.0 mmol/L [facility] Comment: Please note: ??Patients with WBC >100,00 0 may have falsely elevated Potassium levels. ??For accurate Potassium quantif ication in these patients send serum separator tube (gold top) for subsequent determinations. ??Contact the Clinical Chemistry Laboratory if there are any qu estions. Chloride 100 98 - 107 mmol/L [facility] CO2 25 22 - 31 mmol/L [facility] Anion Gap 12 5 - 15 mmol/L [facility] Calcium 10.3 8.5 - 10.5 mg/dL [facility] Estimated GFR 76 >=60 mL/min/1.73 m?? [facility] Comment: This patient? s estimated glomerular filtration rate (eGFR) is between 76 mL/min/1.73 m2 (patients with less muscl e mass) and 88 mL/min/1.73 m2 (patients with more muscle mass) as determined by the CKD-EPI equation. Assessment of eGFR is not appropriate when creatinine concentrations are rapidly changing. For clinical decisions where creatinine clearance will affect therapy, a 24-hour urine creatinine clearance may b e advised. Assignment of CKD stage 1 - 5 for patien ts with an eGFR near the transition point between stages may be based on cli nical assessment of muscle mass and symptoms in addition to eGFR. Specimen Anatomical Collection Method Collection Time Receive d Time (Source) Location / / Volume Laterality Blood 04/21/2021 12:16 04/21/2021 PM EDT 12:38 PM EDT Resulting Agency Comment Spec In Lab Aidan Resendiz MD CHEMISTRY ORDERABLES Performing Organization Address City/State/[place] [address] documented in this encounter Visit Diagnoses Diagnosis Partial symptomatic epilepsy with comple x partial seizures, not intractable, without status epilepticus Hereditary and idiopathic neuropathy, un specified Abnormal finding of blood chemistry, uns pecified documented in this encounter Care Teams Software Computer Specialist Relationship Specialty Start Date End Date Racquel Nevarez MD PCP - General 06/15/[address] [place] [address] documented as of this encounter
--- OUTSIDE RECORDS SUMMARY | 2022-05-26 09:59 | XMS_ITS | Encounter Summary ---
:1950 Author Organization [facility] Address [facility] [place] [address] Care Team Providers Name Role Phone Racquel Nevarez MD Primary Care Provider Reason for Visit Reason Onset Date Comments Questions 10/12/2020 Encounter Details Date Type Department Care Team Description 10/12/2020 Telephone Neurology at [facility] [place] [facility] Aidan Aldana MD Questions [facility] [place] [address] NEUROLOGY DEPT. [phone] [place], [place] [address] (Wo rk) Social History Tobacco [...] Encounter - Krystina Bragg RN - 10/13/2020 10:17 AM EDT See other phone note this date Telephone Encounter - Elinor John - 10/12/2020 5:02 PM EDT Call Center / [place] Sewing Machine Operator Message - General Issue Call Provider patient sees in Clinic: Dr. Aldana Caller and relationship (if other than patient-full name): self Call back number:[phone] Ok to leave a message: yes Reason for call: Patient called in with one more question. Patient would like to know if any of the providers patients who take the generic form have any side effects. Patient states that she has dean on the non generic form for 26 years. Disposition of Call (choose one and remove others): ??? Red Arrow Message Reason red arrow Message: n ??? Routine Message sent to the Nurse: yes ??? Routine message sent to Adena: n documented in this encounter Plan of Treatment Upcoming Encounters Date Type Specialty Care Team Description 06/20/2022 Procedure visit Neurology Fernando Garcia MD [facility] NEUROLOGY DEPT. [place], [place] [address] (Wo rk) 06/20/2022 Office Visit Neurology Aidan Aldana MD [facility] NEUROLOGY DEPT. [place], [place] [address] (Wo rk) documented as of this encounter Visit Diagnoses Not on filedocumented in this encounter Care Teams Program Clerk Relationship Specialty Start Date End Date Racquel Nevarez MD PCP - General 06/15/10 [facility] [address] [place] [address] documented as of this encounter
--- OUTSIDE RECORDS SUMMARY | 2022-05-26 09:59 | XMS_ITS | Encounter Summary ---
:1950 Author Organization [facility] [place] [address] Care Team Providers Name Role Phone Racquel Nevarez MD Primary Care Provider Encounter Details Date Type Department Care Team Description 12/20/2013 Follow-Up Neurology at [facility] [place] Aidan Resendiz, Epilepsy (Primary Dx) [facility] [place] [phone] NEUROLOGY DEPT. [place], [place] [address] (Wo rk) Social History Tobacco [...] place to sleep or slept in a detention (including now)? Sex Assigned at Date Recorded Not on file documented as of this encounter Last Filed Vital Signs Vital Sign Reading Time Taken Comments Blood Pressure 145/75 12/20/2013 10:14 AM EDT Pulse 68 12/20/2013 10:14 AM EDT Temperature - - Respiratory Rate - - Oxygen Saturation - - Inhaled Oxygen Concentration - - Weight 64.7 kg (142 lb 9.6 oz) 12/20/2013 10:14 AM EDT Height 170.2 cm (5' 7) 12/20/2013 10:14 AM EDT Body Mass Index 22.33 12/20/2013 10:14 AM EDT documented in this encounter Patient Instructions Patient InstructionsAidan Resendiz MD - 12/20/2013 10:33 AM EDT I think you're doing quite well. Seizures appear to be controlled. Your neurological exam is essentially normal. The benign positional vertigo seems to be in remission. If it recurs, you should go back to physicaltherapy for more exercises, and if that does not help, contact me. Your MRI scan of the brain was entirely normal. I am renewing your Carbatrol prescription for a year. I would like to see you back in a year or sooner if necessary. Aidan Resendiz MD [place] [address] Pager: [phone], #[phone] Email: [email or web address] documented in this encounter Progress Notes Aidan Resendiz MD - 12/20/2013 9:48 AM EDT Chief Complaint: Epilepsy. History: The patient is [...] diagnosis of benign positional vertigo. Interval history: She has had no seizures. She has had some minor orthopedic problems with tendinitis in the shoulders. She has had no recurrence of vertigo. Overall she feels she is doing well, Past Medical history: Patient Active Problem List Diagnosis Code ??? Epilepsy 345.90 ??? Arthritis 716.90 ??? Vertigo 780.4 Review of systems: She is eating or right. Sleep is disturbed. Bowel and bladder function are normal. Physical Exam: BP 145/75 Pulse 68 Ht 170.2 cm (5' 7) Wt 64.683 kg (142 lb 9.6 oz) BMI 22.33 kg/m2 Head, eyes, ears, nose, and throat were normal. There was no adenopathy Heart and lungs were normal. Extremities were unremarkable except for some distal arthritic changes. She is mentally intact and speech was normal. Cranial nerves were normal. I could not elicit any nystagmus or vertigo today Strength was normal. Reflexes were 2+ and symmetrical Sensation was normal. Cerebellar function testing was noteworthy for normal finger to nose movement. Her gait was stable. Medications: Current Outpatient Prescriptions Medication Sig Dispense Refill ??? carBAMazepine (CARBATROL) 300 mg 12 hr capsule Take 1 capsule by mouth 2 times daily. 180 capsule 3 ??? CALCIUM CARBONATE/VITAMIN D3 (CALCIUM + D ORAL) Take 1 tablet by mouth daily. ??? DIPHENHYDRAMINE HCL (ANTIHISTAMINE ORAL) Take 4 mg by mouth daily. ??? vitamin E 400 unit capsule Take 400 Units by mouth daily. ??? Simethicone (GAS-X ULTRA-STRENGTH) 180 mg Cap Take 1 tablet by mouth as needed. ??? ESTRADIOL (ESTRACE VAGL) Place vaginally every other day. ??? naproxen sodium (ALEVE) 220 mg tablet Take 220 mg by mouth daily. ??? MULTIVITAMIN WITH MINERALS (MULTIVITAMIN AND MINERALS ORAL) Take 1 tablet by mouth daily. Impression: The patient is doing well. 1. Seizures are fully controlled. She is having occasional auras. I think she should stay on the Carbatrol indefinitely. I am keeping her on the brand name drug. 2. The problem of dizziness was almost certainly benign positional vertigo. It seems to have resolved with physical therapy. I would do nothing further in this regard. I note that followup MRI scan of the brain was normal. Thank you for this consultation. I will see her back in 12 months or sooner if necessary. Aidan Resendiz MD [place] [address] Pager: [phone], #[phone] Email: [email or web address] cc: Racquel Nevarez MD documented in this encounter Plan of Treatment Upcoming Encounters Date Type Specialty Care Team Description 06/20/2022 Procedure visit Neurology Fernando Garcia MD [facility] NEUROLOGY DEPT. [place] [address] (Wo rk) 06/20/2022 Office Visit Neurology Aidan Resendiz MD [facility] NEUROLOGY DEPT. [place], [place] [address] (Wo rk) documented as of this encounter Visit Diagnoses Diagnosis Epilepsy - Primary Unspecified epilepsy without mention of intractable epilepsy documented in this encounter Care Teams Tobacco Sampler Relationship Specialty Start Date End Date Racquel Nevarez MD PCP - General 06/15/[address] [place] [address] documented as of this encounter
--- OUTSIDE RECORDS SUMMARY | 2022-05-26 09:59 | XMS_ITS | Encounter Summary ---
:1950 Author Organization [facility] [place] [address] Care Team Providers Name Role Phone Racquel Nevarez MD Primary Care Provider Encounter Details Date Type Department Care Team Description 04/27/2016 Office Visit Neurology at [facility] Aidan Resendiz, Partial symptomatic [facility] epilepsy with complex Drive [facility] partial seizures, not [place], [place] DR intractable, without [phone] NEUR[address] DEPT[address] status epilepticus [phone] [place], [place] [address] Social History Tobacco Use Types [...] place to sleep or slept in a correction (including now)? Sex Assigned at Date Recorded Not on file documented as of this encounter Last Filed Vital Signs Vital Sign Reading Time Taken Comments Blood Pressure 146/73 04/27/2016 11:07 AM EDT Pulse 66 04/27/2016 11:07 AM EDT Temperature - - Respiratory Rate - - Oxygen Saturation - - Inhaled Oxygen Concentration - - Weight 65.9 kg (145 lb 3.2 oz) 04/27/2016 11:07 AM EDT Height 170.2 cm (5' 7) 04/27/2016 11:07 AM EDT Body Mass Index 22.74 04/27/2016 11:07 AM EDT documented in this encounter Patient Instructions Patient InstructionsAidan Resendiz MD - 04/27/2016 11:30 AM EDT I think you're doing quite well. Seizures appear to be fully controlled. There has been no recurrence of vertigo. Please stay on the Carbatrol 1 pill twice a day For allergies please try Claritin (loratadine) 10 mg daily. If that does not help please try Dorcas(fexofenadine) 30 mg twice a day or 60 mg daily. You could take as much 120 mg daily. For the skin irritation please try some triamcinolone cream applied likely twice a day as needed I would like to see you back in a year or sooner if necessary. Aidan Resendiz MD Department of Neurology [place] [address], [place] [address] Pager: [phone], #[phone] Email: [email or web address] documented in this encounter Progress Notes Aidan Resendiz MD - 04/27/2016 11:30 AM EDT Neurology clinic note Chief [...] history: Overall she feels she is doing well.. She has had no seizures. She has occasional minor auras She has had some minor orthopedic problems with tendinitis in the shoulders. She has had no recurrence of vertigo. Owing to some confusion About dosing she did not try to make a switch to one of the newer antihistamine drugs. She is having some atopic dermatitis. Past Medical history: Patient Active Problem List Diagnosis Code ??? Epilepsy G40.909 ??? Arthritis M19.90 ??? Vertigo R42 Review of systems: She is eating or right. Sleep is disturbed. Bowel and bladder function are normal. Social history: Her youngest son is getting . Her daughter is already . She and her have several grandchildren. They recently returned from a trip to [place] Physical Exam: BP 146/73 Pulse 66 Ht 170.2 cm (5' 7) Wt 65.9 kg (145 lb 3.2 oz) BMI 22.74 kg/m2 Head, eyes, ears, nose, and throat were normal. There was no adenopathy Heart and lungs were normal. Extremities were unremarkable except for some distal arthritic changes, and some atopic dermatitis on the arms. She is mentally intact and speech was normal. Cranial nerves were normal. I could not elicit any nystagmus or vertigo today Strength was normal. Reflexes were 2+ and symmetrical Sensation was normal. Cerebellar function testing was noteworthy for normal finger to nose movement. Her gait was stable. Medications: Current Outpatient Prescriptions Medication Sig Dispense Refill ??? carBAMazepine (CARBATROL) 300 mg Cap, Multiphasic Release 12 hr Take 1 capsule by mouth 2 times daily. Brand name only. 180 capsule 3 ??? acetaminophen (TYLENOL) 325 mg Tablet Take 650 mg by mouth daily as needed for Pain. ??? Psyllium Husk (METAMUCIL) 0.52 gram Capsule [...] times daily as needed. 30 g 3 No current facility-administered medications for this visit. Laboratory studies: None ordered here today. Screening laboratory studies normal here in 2012, and in [facility] in 2015. Impression: The patient is [...] alarmed myself at the association with Alzheimer disease. As she needs daily medication, I think is reasonable to try and switch to either Claritin 10 mg daily or fexofenadine 30 to 60 mg daily. I gave her some samples of Claritin. 4. She seems to have some atopic dermatitis of the arms. Vror-ieo-cwhhewc hydrocortisone has not worked. I have given her some 1% triamcinolone cream. 5. She is concerned about her blood pressure which is borderline here, but always seems normal at home. I suspect this is the effect of travel and a white coat effect, Thank you for this consultation. I will see her back in 12 months or sooner if necessary. Aidan Resendiz MD [place] [address] Pager: [phone], #[phone] Email: [email or web address] cc: Racquel Nevarez MD documented in this encounter Plan of Treatment Upcoming Encounters Date Type Specialty Care Team Description 06/20/2022 Procedure visit Neurology Fernando Garcia MD [facility] NEUROLOGY DEPT. [place], [place] [address] (Wo viri) 06/20/2022 Office Visit Neurology Aidan Resendiz MD [facility] NEUROLOGY DEPT. 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
--- OUTSIDE RECORDS SUMMARY | 2022-05-26 09:59 | XMS_ITS | Encounter Summary ---
:1950 Author Organization [facility] [place] [address] Care Team Providers Name Role Phone Racquel Nevarez MD Primary Care Provider Encounter Details Date Type Department Care Team Description 05/22/2019 Refill Neurology at [facility] Aidan Resendiz MD [facility] [place] [address] NEUR[address] DEPT. [phone] [place], [place] [address] (Wo rk) Social History Tobacco [...] this encounter Miscellaneous Notes Telephone Encounter - Linda Pickens RN - 05/23/2019 9:28 AM EDT Spoke to patient. Reported that she needs a refill of Carbatrol (brand name). Requested to send it it to [facility]. Prescription request sent to Dr. Resendiz for approval. Telephone Encounter - Li Powell - 05/22/2019 2:13 PM EDT Clinical Senior Water/Wastewater Engineer Message Caller: Sanjuana Call back Number: [phone] Reason for call: Carbitrol Message/information for the nurse: The pt called just to clarify that her yearly prescription of Carbitrol has been sent to [facility]. Disposition of Call ?? Routine Message sent to the Nurse documented in this encounter Plan of Treatment Upcoming Encounters Date Type Specialty Care Team Description 06/20/2022 Procedure visit Neurology Fernando Garcia MD [facility] NEUROLOGY DEPT. [place], [place] [address] (Wo rk) 06/20/2022 Office Visit Neurology Aidan Resendiz MD [facility] NEUROLOGY DEPT. [place], [place] [address] (Wo rk) documented as of this encounter Visit Diagnoses Not on filedocumented in this encounter Care Teams Blanking Machine Operator Relationship Specialty Start Date End Date Racquel Nevarez MD PCP - General 06/15/[address] [place] [address] documented as of this encounter
--- OUTSIDE RECORDS SUMMARY | 2022-05-26 09:59 | XMS_ITS | Clinical Summary ---
:1950 Author Organization [facility] [place] [address] Care Team Providers Name Role Phone Racquel Nevarez MD Primary Care Provider Allergies Active Allergy Reactions Severity Noted Date Comments Allergenic Extracts 12/12/2012 Cats, do gs, saravia, trees, grass, mold, mildew, r agweed, and hay. Erythromycin Base Diarrhea Medium Alprazolam Medium Per patient, un known reaction. Medications Medication Sig Dispensed Refills Start Date End Date Status ESTRADIOL (ESTRACE Place vaginally 0 02/01/2011 Active VAGL) every other day. MULTIVITAMIN WITH Take 1 tablet by 0 02/01/2011 Active MINERALS (MULTIVITAMIN mouth daily. AND MINERALS ORAL) CALCIUM Take 1 tablet by 0 Act suha CARBONATE/VITAMIN D3 mouth daily. (CALCIUM + D ORAL) vitamin E 400 unit Take 400 Units by 0 Active capsule mouth daily. Simethicone 180 mg Take 1 tablet by 0 Active Capsule mouth as needed. Psyllium Husk 0.52 Take 0.52 g by 0 Active gram Capsule mouth nightly. naproxen sodium Take 220 mg by 0 Active (ANAPROX) 220 mg mouth daily. Tablet chlorpheniramine Take 1 tablet by 30 tablet 0 05/09/2017 Active (CHLOR-TRIMETON) 4 mg mouth 2 times Tablet daily as needed for Allergies. triamcinolone Apply topically 2 30 g 3 04/21/2021 Active (Kenalog) 0.1 % Cream times daily as needed. Flowflex COVID-19 Ag REFER TO 0 12/03/2021 Active Home Test Kit SINGER AND UNLOADER INSTRUCTIONS INCLUDED IN PACKAGING albuteroL 90 INHALE 1 PUFF BY 0 11/03/2021 Active mcg/actuation HFA MOUTH FOUR TIMES Aerosol Inhaler DAILY NEEDED FOR WHEEZING. carBAMazepine CR Take 1 capsule by 180 capsule 3 04/20/2022 Active (CarbatroL) 300 mg mouth 2 times Cap, Multiphasic daily. BRAND NAME Release 12 hr ONLY Active Problems Problem Noted Date Shingles 04/20/2022 Atrophic vaginitis 04/21/2021 Osteopenia 04/21/2021 Ovarian cyst, right 04/21/2021 S/P appendectomy 04/21/2021 S/P bilateral oophorectomy 04/21/2021 Thickened endometrium 04/21/2021 Basal cell carcinoma of skin of other parts of face Squamous cell carcinoma in situ of skin 05/12/2014 Actinic keratitis 05/12/2014 Arthritis 12/12/2012 Vertigo 12/12/2012 Epilepsy 02/02/2011 Encounters Date Type Specialty Care Team Description 04/20/2022 Office Visit Neurology Aidan Resendiz MD Partial symptomatic epilepsy with complex partial seizures, not intractable, without status epilepticus; Neuropathy from Last 3 Months Immunizations Name Administration Dates Next Due Influenza Vaccine, Whole 05/14/2003 Social History Tobacco Use Types Packs/Day Years [...] place to sleep or slept in a senior living (including now)? Sex Assigned at Date Recorded Not on file Last Filed Vital Signs Vital Sign Reading Time Taken Comments Blood Pressure 169/80 04/20/2022 10:54 AM EDT Pulse 79 04/20/2022 10:54 AM EDT Temperature - - Respiratory Rate - - Oxygen Saturation 97% 05/06/2020 10:57 AM EDT Inhaled Oxygen Concentration - - Weight 61.9 kg (136 lb 8 oz) 04/20/2022 10:54 AM EDT Height 170.2 cm (5' 7) 04/20/2022 10:54 AM EDT Body Mass Index 21.38 04/20/2022 10:54 AM EDT Plan of Treatment Upcoming Encounters Date Type Specialty Care Team Description 06/20/2022 Procedure visit Neurology Fernando Garcia MD [facility] NEUROLOGY DEPT. [place], [place] [address] (Wo viri) 06/20/2022 Office Visit Neurology Aidan Resendiz MD [facility] NEUROLOGY DEPT. [place], [place] [address] (Manuel meredith) Health Maintenance Due Date Last Done Comments Covid-19 Vaccine (#1) 03/01/1951 Hepatitis C Screening 1970 Tdap adult 1971 Tetanus vaccine 1971 Breast Cancer Share Decision Needed 1992 Colonoscopy 1997 Breast Cancer screening 2002 Zoster vaccine (1 of 2) 2002 Advance Directive 2007 Bone Density Scan 2017 Pneumoccocal Vaccine: 65+ (1 - PCV) 2017 Influenza (Flu) vaccine (1 of 1 - Influenza standard 03/24/2022 05/14/2003 series) Insurance Payer Benefit Plan / Subscriber ID Effective Phone Address T ype Group Dates MEDICARE MEDICARE PART A [id number] 2021-Pres [phone] [facility] [place] [address] AARP SUPPLEMENT AARP SUPPLEMENT [id number] 2020-Prese [address] [place] [address] Care Teams Business Management Professor Relationship Specialty Start Date End Date Racquel Nevarez MD PCP - General 06/15/[address] [place], [place] [address]
--- OUTSIDE RECORDS SUMMARY | 2022-05-26 09:59 | XMS_ITS | Encounter Summary ---
:1950 Author Organization [facility] [place] [address] Care Team Providers Name Role Phone Racquel Nevarez MD Primary Care Provider Encounter Details Date Type Department Care Team Description 12/12/2012 [place] [facility] [place] Resendiz, Epilepsy (Primary Dx) [facility] [place] [address] NEUROLOGY DEPT. [place], [place] [address] (Wo rk) Social History Tobacco [...] place to sleep or slept in a prison (including now)? Sex Assigned at Date Recorded Not on file documented as of this encounter Last Filed Vital Signs Vital Sign Reading Time Taken Comments Blood Pressure 144/77 12/12/2012 10:09 AM EDT Pulse 63 12/12/2012 10:09 AM EDT Temperature - - Respiratory Rate - - Oxygen Saturation - - Inhaled Oxygen Concentration - - Weight 66.2 kg (146 lb) 12/12/2012 10:09 AM EDT Height 170.2 cm (5' 7) 12/12/2012 10:09 AM EDT Body Mass Index 22.87 12/12/2012 10:09 AM EDT documented in this encounter Patient Instructions Patient InstructionsAidan Resendiz MD - 12/12/2012 11:18 AM EDT I think you're doing reasonably well. Seizures are controlled. Please stay on the Carbatrol. The dizziness is a separate problem. It is almost certainly benign positional vertigo which is an inner ear dysfunction, which could be related to a virus, or could be part of normal aging. I m giving you a prescription for meclizine 12.5 mg 3 times a day as needed, you may want to take itregularly for a few days and see how you do. You also need physical therapy with the desensitization exercises. I am giving you a prescription for that. Although a structural lesion is very unlikely, I think is reasonable in view of your family history,to do an MRI scan of the brain. I would like to see you back in 2 months to see how you're doing. Aidan Resendiz [place] [address] Pager: [phone], #[phone] Email: [email or web address] documented in this encounter Progress Notes Aidan Resendiz MD - 12/12/2012 10:50 AM EDT Chief Complaint: Epilepsy. History: The patient is seen in followup today. 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 He has had rare secondarily generalized seizures. Seizures are fully controlled on Carbatrol. She has about one aura of d??j?? vu per month. MRI scan was normal. She continues to do well. She has had no seizures, and has had occasional auras auras. Her general health has been good. She has a new problem of vertigo. He had a bad viral infection last winter. She feels she has not fully recovered. She is having episodes of dizziness. Sometimes when she turns her head in bed, she feels dizzy. Other changes of position also do this. It lasts for a few seconds. She does not describe nausea. She feels a little off balance. She is not conscious of visual disturbances. She feels dizzy and lightheaded and may not have a sense of rotation or motion. Medical history: Patient Active Problem List Diagnoses Code ??? Epilepsy 345.90 ??? Arthritis 716.90 ??? Vertigo 780.4 Of systems: She is eating or right. Sleep is disturbed. Bowel and bladder function are normal. Physical Exam: BP 144/77 Pulse 63 Ht 170.2 cm (5' 7) Wt 66.225 kg (146 lb) BMI 22.87 kg/m2 Head, eyes, ears, nose, and throat were normal. Tympanic membranes were normal. There was no adenopathy Heart and lungs were normal. The liver was not enlarged. Extremities were unremarkable. Cranial nerves were normal, except that with the Trever-Hallpike maneuver she clearly developed torsional nystagmus with head turning to the right. Tuning fork tests do not clearly lateralize, although hearing may be slightly diminished on the right. The tympanic membranes are normal. The rest of cranial nerve exam is completely normal Strength and reflexes were normal. Sensation was normal. Cerebellar function was normal. Her gait was stable. Medications: Current Outpatient Prescriptions Medication Sig Dispense Refill ??? CALCIUM CARBONATE/VITAMIN D3 (CALCIUM + D ORAL) Take 1 tablet by mouth daily. ??? DIPHENHYDRAMINE HCL (ANTIHISTAMINE ORAL) Take 4 mg by mouth daily. ??? vitamin E 400 unit capsule Take 400 Units by mouth daily. ??? Simethicone (GAS-X ULTRA-STRENGTH) 180 mg Cap Take 1 tablet by mouth as needed. ??? carBAMazepine (CARBATROL) 300 mg 12 hr capsule Take 1 capsule by mouth 2 times daily. 180 capsule 3 ??? ESTRADIOL (ESTRACE VAGL) Place vaginally every other day. ??? naproxen sodium (ALEVE) 220 mg tablet Take 220 mg by mouth daily. ??? MULTIVITAMIN WITH MINERALS (MULTIVITAMIN AND MINERALS ORAL) Take 1 tablet by mouth daily. ??? meclizine (ANTIVERT) 12.5 mg tablet Take 1 tablet by mouth 3 times daily as needed. 100 tablet 5 Impression: The patient is doing reasonably well. 1. Seizures are fully controlled. She is having occasional auras. I think she should stay on the Carbatrol indefinitely. I am keeping her on the brand name drug. 2. The new problem of dizziness is almost certainly benign positional vertigo. This may be related to aging with accumulation of debris in the semicircular canals. She could also have a post viral vestibulitis. A structural lesion such as an acoustic neuroma is much less likely. I am requesting an MRIscan of the brain. I am putting her on meclizine 12.5 mg 3 times a day when necessary. I have also given her a prescription for physical therapy, which she can use in [facility] to get vestibular desensitizing exercises and the Carlos maneuver. Thank you for this consultation. I will see her back in 2 months or sooner if necessary. Aidan Resendiz MD [place] [address] Pager: [phone], #[phone] Email: [email or web address] cc: Racquel Nevarez MD documented in this encounter Miscellaneous Notes Addendum Note - Ankit Abraham - 12/12/2012 12:04 PM EDT Addended by: ANKIT ABRAHAM on: 12/12/2012 12:04 PM Modules accepted: Orders documented in this encounter Plan of Treatment Upcoming Encounters Date Type Specialty Care Team Description 06/20/2022 Procedure visit Neurology Fernando Garcia MD [facility] NEUROLOGY DEPT. [place], [place] [address] (Wo rk) 06/20/2022 Office Visit Neurology Aidan Resendiz MD [facility] NEUROLOGY DEPT. [place], [place] [address] (Wo rk) documented as of this encounter Procedures Procedure Name Priority Date/Time Associated Comments Diagnosis LYME IGG & IGM Routine 12/12/2012 12:16 Epilepsy Results f or this ANTIBODY PM EDT procedure are i n the results section. DIFFERENTIAL, Routine 12/12/2012 12:16 Results fo r this AUTOMATED PM EDT procedure are i n the results section. SEDIMENTATION RATE Routine 12/12/2012 12:16 Epilepsy Resul ts for this PM EDT procedure are i n the results section. CBC (WITH DIFF) Routine 12/12/2012 12:16 Epilepsy Results for this PM EDT procedure are i n the results section. TSH Routine 12/12/2012 12:16 Epilepsy Results for this PM EDT procedure are i n the results section. VITAMIN B12 Routine 12/12/2012 12:16 Epilepsy Results for this PM EDT procedure are i n the results section. HEPATIC FUNCTION PANEL Routine 12/12/2012 12:16 Epilepsy R esults for this PM EDT procedure are i n the results section. BASIC METABOLIC PANEL Routine 12/12/2012 12:16 Epilepsy Re sults for this (NON-FASTING) PM EDT procedure are in the results section. [...] IAC mass or abnormal enhancement. Procedure Note Carlos Barry MD - 12/20/2012Format ting of this [...] enhancement. Aidan Resendiz MD IMG MRI ORDERABLES Differential, Automated (12/12/2012 12:16 PM EDT) P athologist Signature Neutrophils % 52.0 34.0 - CERNER 71.0 % MILLENNIUM Neutr Abs (ANC) 1.82 1.50 - CERNER 6.30 MILLENNIUM x10(3)/mcL Lymphocytes % 35.7 19.0 - CERNER 53.0 % MILLENNIUM Lymphocytes Abs 1.2 1.0 - 3.6 CERNER x10(3)/mcL MILLENNIUM Monocytes % 10.3 4.0 - 13.0 CERNER % MILLENNIUM Monocyte Abs 0.4 0.2 - 1.0 CERNER x10(3)/mcL MILLENNIUM Eosinophils % 1.7 0.0 - 7.0 CERNER % MILLENNIUM Eosinophils Abs 0.1 0.0 - 0.5 CERNER x10(3)/mcL MILLENNIUM Basophils % 0.3 0.0 - 2.0 CERNER % MILLENNIUM Basophils Abs 0.0 0.0 - 0.2 CERNER x10(3)/mcL MILLENNIUM Immature Gran % 0.00 0.00 - CERNER 0.66 % MILLENNIUM Comment: Immature granulocytes(IG's)percentage an d absolute count will include metamyelocytes, myelocytes, and promyelo cytes. Blood smears from CBCs yielding IG's will be scanned manually for concor dance. If this scan disagrees with the automated IG or if promyelocytes are not ed, a manual differential will be performed. Yelena Gran Abs 0.00 0.00 - 0.05 x10(3)/mcL CER NER MILLENNIUM Specimen Anatomical Collection Method Collection Time Receive d Time (Source) Location / / Volume Laterality Blood specimen 12/12/2012 12:16 3 (specimen) PM EDT 12:23 PM EDT Authorizing Provider Result Víctor Resendiz MD HEMATOLOGY ORDERABLES Performing Organization Address City/[facility]/ZIP Code Phon e Number [address] CERNER MILLENNIUM Lyme IgG & IgM Antibody (12/12/2012 12:16 PM EDT) P athologist Signature Lyme Screening Neg Neg CERNER Antibody MILLENNIUM Specimen Anatomical Collection Method Collection Time Receive d Time (Source) Location / / Volume Laterality Blood specimen 12/12/2012 12:16 3 8:09 (specimen) PM EDT PM EDT Resulting Agency Comment Spec In Lab Aidan Resendiz MD IMMUNOLOGY ORDERABLES Performing Organization Address City/[facility]/ZIP Code Phon e Number [address] CERNER MILLENNIUM Sedimentation rate (12/12/2012 12:16 PM EDT) P athologist Signature Sed Rate 10 0 - 20 CERNER mm/hr MILLENNIUM Specimen Anatomical Collection Method Collection Time Receive d Time (Source) Location / / Volume Laterality Blood specimen 12/12/2012 12:16 3 (specimen) PM EDT 12:23 PM EDT Resulting Agency Comment Spec In Lab Authorizing Provider Result Víctor Resendiz MD HEMATOLOGY ORDERABLES Performing Organization Address City/[facility]/ZIP Code Phon e Number [address] CERNER MILLENNIUM (ABNORMAL) CBC (with Diff) (12/12/2012 12:16 PM EDT) P athologist Signature WBC 3.5 (L) 4.0 - 10.0 CERNER x10(3)/mcL MILLENNIUM RBC 4.28 3.93 - CERNER 5.22 MILLENNIUM x10(6)/mcL Hemoglobin 14.1 11.2 - CERNER 15.7 gm/dL MILLENNIUM Hematocrit 41.6 34.0 - CERNER 45.0 % MILLENNIUM MCV 97.2 (H) 79.0 - CERNER 94.0 fL MILLENNIUM MCH 32.9 (H) 26.6 - CERNER 32.2 pg [facility] MCHC 33.9 32.0 - CERNER 36.5 gm/dL [facility] Platelets 160 145 - 370 CERNER x10(3)/mcL MILLENNIUM RDWSD 43.3 35.0 - CERNER 46.0 fL [facility] RDWCV 12.4 10.9 - CERNER 14.4 % [facility] MPV 10.8 9.0 - 12.0 CERNER fL [facility] Specimen Anatomical Collection Method Collection Time Receive d Time (Source) Location / / Volume Laterality Blood specimen 12/12/2012 12:16 3 (specimen) PM EDT 12:23 PM EDT Resulting Agency Comment Spec In Lab Aidan Resendiz MD HEMATOLOGY ORDERABLES Performing Organization Address City/[facility]/ZIP Code Phon e Number [address] [facility] Vitamin B12 (12/12/2012 12:16 PM EDT) P athologist Signature Vitamin B-12 604 207 - 974 CERNER pg/mL [facility] Specimen Anatomical Collection Method Collection Time Receive d Time (Source) Location / / Volume Laterality Blood specimen 12/12/2012 12:16 3 (specimen) PM EDT 12:23 PM EDT Resulting Agency Comment Spec In Lab Aidan Resendiz MD CHEMISTRY ORDERABLES Performing Organization Address City/[facility]/ZIP Code Phon e Number [address] [facility] TSH (12/12/2012 12:16 PM EDT) P athologist Signature TSH 3.54 0.27 - 4.20 CERNER mcIU/mL [facility] Specimen Anatomical Collection Method Collection Time Receive d Time (Source) Location / / Volume Laterality Blood specimen 12/12/2012 12:16 3 (specimen) PM EDT 12:23 PM EDT Resulting Agency Comment Spec In Lab Aidan Resendiz MD CHEMISTRY ORDERABLES Performing Organization Address City/[facility]/ZIP Code Phon e Number [facility] [place] [address] CERNER MILLENNIUM (ABNORMAL) Basic Metabolic Panel (non-fasting) (12/12/2012 12:16 PM EDT) athologist Signature Glucose Lvl 98 60 - 199 CERNER mg/dL MILLENNIUM Comment: Diabetes: >=200 mg/dL plus symp toms BUN 14 8 - 18 mg/dL CERNER MILLENNIUM Creatinine 0.69 (L) 0.70 - 1.20 mg/dL CERNER MILL ENNIUM Comment: Please note that the pediatric reference intervals supplied above were not validated at [facility] Results from pediatri c patients should be interpreted in conjunction to the patient's age, height and muscle mass. Sodium 140 135 - 145 mmol/L CERNER ADA NIUM Potassium 3.9 3.5 - 5.0 mmol/L CERNER ADA NIUM Comment: Please note: ??Patients with WBC >100,00 0 may have falsely elevated Potassium levels. ??For accurate Potassium quantif ication in these patients send serum separator tube (gold top) for subsequent determinations. ??Contact the Clinical Chemistry Laboratory if there are any qu estions. Chloride 103 98 - 107 mmol/L CERNER MILLENN IUM CO2 27 22 - 31 mmol/L CERNER MILLENNI UM Anion Gap 10 5 - 15 mmol/L CERNER MILLENNIU M Calcium 9.5 8.5 - 10.5 mg/dL CERNER ADA NIUM Estimated GFR >60 >=60 CERNER MILLENNIU M Comment: This estimated GFR (eGFR) value was calc ulated using the MDRD equation which has been validated on patients between t he ages of 18 and 70. The MDRD should not be used to assess kidney function in patients < 18 years of age or in patients with extremes of body mass, or in patients with acute kidney failure. This value should be multiplied by 1.2 f or patients. For further information please copy and past e the following links into your internet browser. http://www.nkdep.nih.gov/lab-evaluation. shtml http://www.kidney.org/professionals/ Specimen Anatomical Collection Method Collection Time Receive d Time (Source) Location / / Volume Laterality Blood specimen 12/12/2012 12:16 3 (specimen) PM EDT 12:23 PM EDT Resulting Agency Comment Spec In Lab Aidan Resendiz MD CHEMISTRY ORDERABLES Performing Organization Address City/[facility]/ZIP Code Phon e Number [address] CERNER MILLENNIUM Hepatic Function Panel (12/12/2012 12:16 PM EDT) P athologist Signature Total Protein 7.2 6.4 - 8.3 CERNER gm/dL MILLENNIUM Albumin 4.5 3.2 - 5.2 CERNER gm/dL MILLENNIUM AST 27 0 - 30 CERNER unit/L MILLENNIUM ALT 28 0 - 30 CERNER unit/L MILLENNIUM Alk Phos 80 40 - 104 CERNER unit/L MILLENNIUM Total 0.3 0.2 - 1.3 CERNER Bilirubin mg/dL MILLENNIUM Bili, Direct 0.1 0.0 - 0.3 CERNER mg/dL MILLENNIUM Specimen Anatomical Collection Method Collection Time Receive d Time (Source) Location / / Volume Laterality Blood specimen 12/12/2012 12:16 3 (specimen) PM EDT 12:23 PM EDT Resulting Agency Comment Spec In Lab Aidan Resendiz MD CHEMISTRY ORDERABLES Performing Organization Address City/[facility]/ZIP Code Phon e Number [address] CERNER MILLENNIUM documented in this encounter Visit Diagnoses Diagnosis Epilepsy - Primary Unspecified epilepsy without mention of intractable epilepsy Epilepsy Unspecified epilepsy without mention of intractable epilepsy documented in this encounter Care Teams Pretzel Twister Relationship Specialty Start Date End Date Racquel Nevarez MD PCP - General 06/15/[address] [place] [address] documented as of this encounter
--- OUTSIDE RECORDS SUMMARY | 2022-05-26 09:59 | XMS_ITS | Encounter Summary ---
:1950 Author Organization [facility] [place] [address] Care Team Providers Name Role Phone Racquel Nevarez MD Primary Care Provider Reason for Visit Reason Comments Seizures Encounter Details Date Type Department Care Team Description 02/02/2011 Follow-Up Neurology at [facility] [place] Aidan Resendiz, Epilepsy (Primary Dx) [facility] [place] [address] NEUROLOGY DEPT. [place], [place] [address] (Wo rk) Social History Tobacco Use Types Packs/Day Years Used Date Never Smoker Smokeless Tobacco: Never Used Alcohol Use Standard Drinks/Week Comments Yes 7 (1 standard drink = 0.6 oz pure [...] Sign Reading Time Taken Comments Blood Pressure 139/80 02/02/2011 10:16 AM EDT Pulse 62 02/02/2011 10:16 AM EDT Temperature - - Respiratory Rate - - Oxygen Saturation - - Inhaled Oxygen Concentration - - Weight 65.8 kg (145 lb) 02/02/2011 10:16 AM EDT Height 169.5 cm (5' 6.75) 02/02/2011 10:16 AM EDT Body Mass Index 22.88 02/02/2011 10:16 AM EDT documented in this encounter Patient Instructions Patient InstructionsAidan Resendiz MD - 02/02/2011 11:01 AM EDT I think you are doing well. Seizures are controlled. Please stay on brand name Carbatrol. Please get Dr. Paez's office to send me copies of your recent blood tests. I will see you in a year. documented in this encounter Progress Notes Aidan Resendiz MD - 02/02/2011 10:53 AM EDT Chief Complaint: Epilepsy. History: The patient is seen in followup today. I saw her a year ago. She continues to do well. She has had no seizures or auras. Her general health has been good. She is going to be a grandmother soon. Physical Exam: Head, eyes, ears, nose, and throat were normal. Cranial nerves were normal. Strength and reflexes were normal. Her gait was stable. Medications: In electronic record Impression: She continues to do well. Seizures are fully controlled. I think she should stay on the Carbatrol indefinitely. I am keeping her on the brand name drug. Thank you for this consultation. I will see her back in a year or sooner if necessary. I note that she had blood work done in [place]. I have asked the copies of that should be sent to me here, so I can get them scanned into the computer. I am not checking anything here today. Thank you for this consultation. cc: Racquel Nevarez MD [address] [place] [address] documented in this encounter Miscellaneous Notes Miscellaneous - Jane Crawford - 02/06/2011 4:56 AM EDT documented in this encounter Plan of Treatment Upcoming Encounters Date Type Specialty Care Team Description 06/20/2022 Procedure visit Neurology Fernando Garcia MD [facility] NEUROLOGY DEPT. [place], [place] [address] (Wo viri) 06/20/2022 Office Visit Neurology Aidan Resendiz MD [facility] NEUROLOGY DEPT. [place], [place] [address] (Wo viri) documented as of this encounter Visit Diagnoses Diagnosis Epilepsy - Primary Unspecified epilepsy without mention of intractable epilepsy documented in this encounter Care Teams Wreath Machine Operator Relationship Specialty Start Date End Date Racquel Nevarez MD PCP - General 06/15/10 [facility] [address] [place] [address] documented as of this encounter
--- OUTSIDE RECORDS SUMMARY | 2022-05-26 10:00 | XMS_ITS | Encounter Summary ---
:1950 Author Organization [facility] Address [address] [place] [address] Care Team Providers Name Role Phone Racquel Nevarez MD Primary Care Provider Encounter Details Date Type Department Care Team Description 07/26/2017 Hospital Encounter [facility] [place] Unknown, Provider, [facility] [address] [facility] [phone] [place] [address] (Work) [phone] Social History Tobacco Use Types Packs/Day Years Used Date Never Assessed Sex Assigned at Date Recorded Not on file documented as of this encounter Discharge Disposition Disposition Code Departure Means Destination Home or Self Nursing Home documented in this encounter Plan of Treatment Not on filedocumented as of this encounter Visit Diagnoses Not on filedocumented in this encounter Care Teams Preschool Assistant Principal Relationship Specialty Start Date End Date Racquel Nevarez MD PCP - General 05/16/14 documented as of this encounter
--- OUTSIDE RECORDS SUMMARY | 2022-05-26 10:00 | XMS_ITS | Clinical Summary ---
:[address] [facility] Address [address] [place] [address] Care Team Providers Name Role Phone Racquel Nevarez MD Primary Care Provider Social History Tobacco Use Types Packs/Day Years Used Date Never Assessed Sex Assigned at Date Recorded Not on file Plan of Treatment Health Maintenance Due Date Last Done Comments COVID-19 Vaccine (1) 1964 Fall Risk Screening 2017 Insurance Payer Benefit Plan Subscriber ID Effective Phone Address Typ e / Group Dates MEDICARE MEDICARE A/B [id number] 2017-Pres [address] edicare ent [id number] [place] [address] [facility] [id number] 2020-Pres [phone] [address] [facility] ent [phone] [place] [address] Sanjuana Belle Jeff Personal/Family Self 1950 [address] (Home) [facility] [phone] Jeremiah CONTRERAS (Work) [phone] Barbra,Sanjuana M Personal/Family Self 1950 [address] (Home) [facility] [phone] Jeremiah CONTRERAS (Work) [phone] Sanjuana Belle Personal/Family Self 1950 [address] (Home) [facility] [phone] Jeremiah CONTRERAS (Work) [phone] Sanjuana Belle Personal/Family Self 1950 [address] (Home) [facility] [phone] Jeremiah CONTRERAS (Work) [phone] Care Teams Sales Representative Electric Service Relationship Specialty Start Date End Date Racquel Nevarez MD PCP - General 05/16/14
--- OUTSIDE RECORDS SUMMARY | 2022-05-26 10:00 | XMS_ITS | Encounter Summary ---
:1950 Author Organization [facility] Address [address] [place] [address] Care Team Providers Name Role Phone Racquel Nevarez MD Primary Care Provider Encounter Details Date Type Department Care Team Description 09/25/2017 Hospital Encounter [facility] [place] Unknown, Provider, [facility] [address] [facility] [phone] [place] [address] (Work) [phone] Social History Tobacco Use Types Packs/Day Years Used Date Never Assessed Sex Assigned at Date Recorded Not on file documented as of this encounter Discharge Disposition Disposition Code Departure Means Destination Home or Self Jail documented in this encounter Plan of Treatment Not on filedocumented as of this encounter Visit Diagnoses Not on filedocumented in this encounter Care Teams Fish Packer Relationship Specialty Start Date End Date Racquel Nevarez MD PCP - General 05/16/14 documented as of this encounter
--- OUTSIDE RECORDS SUMMARY | 2022-05-26 10:00 | XMS_ITS | Encounter Summary ---
:[address] [facility] Address [address] [place] [address] Care Team Providers Name Role Phone Racquel Nevarez MD Primary Care Provider Encounter Details Date Type Department Care Team Description 11/05/2020 Lab Requisition [facility] Outr Resulting Lab, Pathology & Laboratory Provider [facility] [address] [place] [address] Social History Tobacco Use Types Packs/Day Years Used Date Never Assessed Sex Assigned at Date Recorded Not on file documented as of this encounter Plan of Treatment Not on filedocumented as of this encounter Procedures Procedure Name Priority Date/Time Associated Diagnosis Comme nts CA 125 Routine 11/05/2020 12:29 EDT Results for this procedure are i n the results section . documented in this encounter Results CA 125 (11/05/2020 12:29 EDT) CA 125 15 <30 U/mL [facility] Comment: LABORATORY SERVICES NOTE: Serum CA 125 concentration s hould not be interpreted as absolute evidence for the presence or absence of malignant disease. Assayed on Siemens ADVIA Adrianne taur XPT using chemiluminescent technology. ??Values obtained by using different assay methods cannot be used interchangeably. Specimen Blood - Venous blood (substance) Performing Organization Address City/State/ZIP Code Phon e Number [facility] [address] [place] [address] SERVICES documented in this encounter Visit Diagnoses Not on filedocumented in this encounter Care Teams Airborne Mission Systems Superintendent Relationship Specialty Start Date End Date Racquel Nevarez MD PCP - General 05/16/14 documented as of this encounter
--- OUTSIDE RECORDS SUMMARY | 2022-05-26 10:00 | XMS_ITS | Encounter Summary ---
:1950 Author Organization [facility] Address [address] [place] [address] Care Team Providers Name Role Phone Racquel Nevarez MD Primary Care Provider Encounter Details Date Type Department Care Team Description 09/29/2020 Lab Requisition [facility] Adi Fairchild MD Encounter for other Pathology & [address] [facility] general examination Laboratory Medicine - [place], [place] [address] [facility] [id number] [place], [place] [id number] Social History Tobacco Use Types Packs/Day Years Used Date Never Assessed Sex Assigned at Date Recorded Not on file documented as of this encounter Plan of Treatment Not on filedocumented as of this encounter Procedures Procedure Name Priority Date/Time Associated Diagnosis Comme nts SURGICAL PATHOLOGY Today 09/28/2020 18:35 Encounter for othe r Results for this EST general examination procedur e are in the results section. documented in this encounter Results SURGICAL PATHOLOGY (09/28/2020 18:35 EST) Final Diagnosis A. APPENDIX, APPENDECTOMY: [facility] - Severe acute suppurative appendicitis and periappend icitis. [facility] LAB[facility] SERVICES Attestation By the signature [facility] Electronica lly below, the attending CENTER signed by Kailee Mancia, physician certifies LABORATORY Raf Brooks MD on that they have 1) SERVICES 10/02/2020 at 1042 personally conducted a gross and/or microscopic examination of the described specimen(s), and/or personally interpreted the results of laboratory testing of the described specimen(s), and 2) personally rendered or confirmed the above diagnosis. Clinical History Acute appendicitis [facility]OR[facility]ORY SERVICES Gross Description [facility] Received in formalin ronald d with proper patient identification (initials G, L) and appendix is an appendix (4.3 cm in length x 1.0 cm in diameter), with a large amount of attached mesoappendix. The proximal margin is stapled. CENTER The serosa is mathews with gra y-white exudate. The cut surface is ortiz-mathews. The average wall thickness is 0.2 cm. A perforation site is not identified. The lumen ranges from 0.1 cm to 0.2 cm in diameter. LABORATORY A fecalith is not identified. The proximal margin is i nked. SERVICES The section adjacent to the stapled proximal margin, 1 sales representative jewelry cross section and one half of the longitudinally bisected distal tip are submitted in A1. VIVIAN LIN(ASCP) 09/30/2020 9:55 Performing Lab [facility] LABORATORY SERVICES Scanned Images [facility] LABORATORY SERVICES Specimen Tissue - Entire appendix (body structure ) Performing Organization Address City/State/ZIP Code Phon e Number [facility] [address] [place] [address] SERVICES documented in this encounter Visit Diagnoses Diagnosis Encounter for other general examination documented in this encounter Care Teams Mill Labor Supervisor Relationship Specialty Start Date End Date Racquel Nevarez MD PCP - General 05/16/14 documented as of this encounter
--- OUTSIDE RECORDS SUMMARY | 2022-05-26 10:00 | XMS_ITS | Encounter Summary ---
:1950 Author Organization [facility] Address [address] [place] [address] Care Team Providers Name Role Phone Racquel Nevarez MD Primary Care Provider Encounter Details Date Type Department Care Team Description 01/21/2021 Lab Requisition [facility] Dorota Hampton Encounter for other Pathology & [address] [place] [address] general examination Laboratory Medicine [facility] [id number] [facility] [phone] [place] [address] (Work) [phone] Social History Tobacco Use Types Packs/Day Years Used Date Never Assessed Sex Assigned at Date Recorded Not on file documented as of this encounter Plan of Treatment Not on filedocumented as of this encounter Procedures Procedure Name Priority Date/Time Associated Diagnosis Comme nts NON CHEMICAL OPERATIONS SPECIALIST/FNA Today 01/20/2021 10:00 Encounter for other Resu lts for this CYTOLOGY EDT general examination procedur e are in the results section. documented in this encounter Results NON CHEMICAL OPERATIONS SPECIALIST/FNA CYTOLOGY (01/20/2021 10:00 EDT) Pathologist Sig nature Final Diagnosis Attention patients [facility] The following pathology re sults have been interpreted by your pathologist and may be available to you before your health provider has had the opportunity to review them. Please allow time for your pro CENTER LABORATOR Y vider to receive these resul ts and explore management options, if applicable. SERVICES A. OVARY, CYST, FLUID, CYTOLOGIC EVALUATION: - No malignant cells identified. Attestation By the signature below, the attending physician certifies that they have personally conducted a gross and/or microscopic [facility] Electronically signed examination of the described specimens and rendered or confirmed the above diagnosis. [facility] by Loli Mckeon MD on 2020 at 1536 Clinical History Ovarian cyst [facility]ORY SERVICES Gross Description A. [facility] 25 ccs of slightly cloudy li ght yellow fluid were received and processed by selective cellular enhancement technique. [facility] Performing Lab [facility]OR[facility]ORY SERVICES Scanned Images [facility]OR[facility]ORY SERVICES Specimen Fluid - Fluid, Other Performing Organization Address City/State/ZIP Code Phon e Number [facility] [address] [place] [address] SERVICES documented in this encounter Visit Diagnoses Diagnosis Encounter for other general examination documented in this encounter Care Teams General Operations Manager Relationship Specialty Start Date End Date Racquel Nevarez MD PCP - General 05/16/14 documented as of this encounter
--- OUTSIDE RECORDS SUMMARY | 2022-05-26 10:00 | XMS_ITS | Encounter Summary ---
:1950 Author Organization [facility] Address [address] [place] [address] Care Team Providers Name Role Phone Racquel Nevarez MD Primary Care Provider Encounter Details Date Type Department Care Team Description 09/25/2017 Results Only [facility] Reg Torres, [address] [place] [address] (Wo rk) Social History Tobacco Use Types Packs/Day Years Used Date Never Assessed Sex Assigned at Date Recorded Not on file documented as of this encounter Plan of Treatment Not on filedocumented as of this encounter Procedures Procedure Name Priority Date/Time Associated Diagnosis Comme [facility] SURGICAL PATHOLOGY Routine 09/25/2017 8:15 EST Re sults for this procedure are i n the results section. documented in this encounter Results SURGICAL PATHOLOGY (09/25/2017 8:15 EST) Pathology Report: SURGICAL PATHOLOGY REPORT [facility] Reports generated via electronic interface conta in original data; CENTER LABORATORY however they are lacking the format of the original re port. SERVICES Caution should be taken when reading/interpreting unfo rmatted reports. Name: ? ABAD VIRAMONTES ? Accession #: ? [id number] ? : ? 1950 (Age: 67 ) ??F ? Collect Date: ? 09/25/2017 ? Location: ? [facility] ? Receive Date: ? 8 ? Provider: REG TORRES DO Copy to: RACQUEL NEVAREZ MD ? Final Pathologic Diagnosis: SKIN OF FOREHEAD, LEFT, EXCISION: - Epidermal reparative change and dermal scar, consistent with biopsy site. ?? - No residual basal cell carcinoma identified. Microscopic Description: The epidermis shows reparative changes with effacement of the rete ridge pattern. ??The underlying dermis has fibrosis with fib roblasts and collagen bundles oriented parallel to the epidermis. ??There is a reactive vascular pattern. ??(Dr. Esqueda)/jds Document reviewed and electronically signed by: LEI ESQUEDA MD Report ??Date: 09/27/2017 15:23 By the signature above, the attending physician certif ies that he/she has personally conducted a gross and/or microscopic examin ation of the described specimens and rendered or confirmed the above diagnosi s. Specimen(s) Received: Basal cell of forehead, left Clinical History: Left basal cell of forehead Intraoperative Interpretation: SKIN, LEFT FOREHEAD, EXCISION: - No residual basal cell car cinoma. ??All margins negative for tumor. ??Scar and inflammation noted. - FSA1. ??3 o'clock tip (en face): ??Negative for tumo r. - FSA2. ??9 o'clock tip (en face): ??Negative for tumo r. - FSA3. ??Cross section with 6 and 12 o'clock margins: ??Negative for tumor. - FSA4. ??Cross section with 6 and 12 o'clock margins: ??Negative for tumor. - FSA5. ??Cross section with 6 and 12 o'clock margins: ??Negative for tumor. ??Scar and inflammation noted. - FSA6. ??Cross section with 6 and 12 o'clock margins: ??Negative for tumor. - Reported to Dr. Torres at 8:45 AM . ??Patient identified prior to verbal report. ??Staining adequate. ??Performed at [facility]. ??Dr. Eva Ngo 09/25/2017 Gross Description: Received fresh labelled with proper mikeal ent identification (initials G, L) and left forehead basal cell i s an oriented elliptical excision of ortiz-white skin, with a white suture designat ing 3 o'clock, a blue suture designating 6 o'clock, and a black suture designating 9 o'clock (1.8 cm from 3 o'clock to 9 o'clock, 0.9 cm from 12 o'clock to 6 o'clock, and is excised to a depth of 0.4 cm). ??The 3-6-9 o'clock aspect is black inked and the 9-12-3 o'c lock aspect is green inked. The specimen is serially sectioned from 3 o'bruce ck to 9 o'clock and is entirely submitted for frozen section as FSA1-FSA6 wit h the interpretations rendered as above. The specimen is entirely submitted as follows: BLOCK BLACK 1- ??FSA1 control, 3 clock tip, en face 2- ??FSA2 control, 9 o'clock tip, en face 3-6- ??FSA3-FSA6 controls, four central sections VIVIAN Moore (ASCP) 09/26/2017 9:15 AM End of Report Specimen Performing Organization Address City/State/ZIP Code Phon e Number [facility] [address] [place] [id number] SERVICES documented in this encounter Visit Diagnoses Not on filedocumented in this encounter Care Teams Poultry Inseminator Relationship Specialty Start Date End Date Racquel Nevarez MD PCP - General 05/16/14 documented as of this encounter
--- OUTSIDE RECORDS SUMMARY | 2022-05-26 10:01 | XMS_ITS | Encounter Summary ---
:1950 Author Organization [facility] Address [address] [place] [address] Care Team Providers Name Role Phone Unavailable Primary Care Provider Unavailable Encounter Details Date Type Department Care Team Description 02/04/2013 Results Only [facility] Hedy Nevarez MD Laboratory Services - [address] [place] [address] [address] [place] [phone] (Wo rk) Social History Tobacco Use Types Packs/Day Years Used Date Never Assessed Sex Assigned at Date Recorded Not on file documented as of this encounter Plan of Treatment Not on filedocumented as of this encounter Procedures Procedure Name Priority Date/Time Associated Diagnosis Comme nts PAP TEST- RESULT Routine 02/04/2013 0:00 EDT Resu lts for this ONLY procedure are i n the results section. documented in this encounter Results PAP TEST- RESULT ONLY (02/04/2013 0:00 EDT) Pathology Report: CYTOPATHOLOGY REPORT [facility] Reports generated via electronic interface contain sindhu ginal data; however they are lacking the format of the original re port. Caution should be taken when reading/interpreting unfo rmatted reports. Name: ? ABAD VIRAMONTES ? Accession #: ? [id number] ? : ? 1950 (Age: 62) ??F ?Collect Da te: ? 02/04/2013 ? Location: ? [facility] ? Receive Date: ? 013 ? Provider: DARIA NEVAREZ MD Copy to: ? Final Report SPECIMEN ADEQUACY ? Satisfactory for Evaluation - assessment of transformation zone component not appl icable ( e.g. atrophy, vaginal sample, hysterectomy) GENERAL CATEGORIZATION ? Negative for Intraepithelial Lesion or Malignan cy ?? Menstrual/ Status: ??Post Menopausal Specimen/Source: ??Pap Test, Cervix/Endocervix, ThinPr ep Imaging System with manual evaluation Document reviewed and electronically signed by: ? Aashish Hay, CT(ASCP) ? Report ??Date: 02/08/2013 13:15 HPV with Pap Test ? Date Ordered: ? 02/08/2013 ? Status: ?? Signed Out ?Date Complete: ? 02/12/2013 ? By: ??S ystem Interface ? Date Reported: ? 02/12/2013 ? Interpretation RESULT: Negative for HPV. No E6 or E7 mRNA is detected from HPV types 16,18,31,3 3,35, 39,45,51,52,56,58,59,66, and 68 by corporate human resources manager media tracy amplification. Comments Document reviewed and electronically signed by: ? System Interface ? Report date: 02/12/2013 By the signature above, the attending physician certif ies that he/she has personally conducted a gross and/or microscopic examin ation of the described specimens and rendered or confirmed the above diagnosi s. End of Report Specimen Performing Organization Address City/State/ZIP Code Phon e Number [facility] [address] [place] [address] SERVICES [facility] [address] [place] [address] documented in this encounter Visit Diagnoses Not on filedocumented in this encounter
--- OUTSIDE RECORDS SUMMARY | 2022-05-26 10:01 | XMS_ITS | Encounter Summary ---
:1950 Author Organization [facility] Address [address] [place] [address] Care Team Providers Name Role Phone Unavailable Primary Care Provider Unavailable Encounter Details Date Type Department Care Team Description 06/22/2000 Results Only [facility] Bert Lr MD conversion [address] [place] [address] Social History Tobacco Use Types Packs/Day Years Used Date Never Assessed Sex Assigned at Date Recorded Not on file documented as of this encounter Plan of Treatment Not on filedocumented as of this encounter Procedures Procedure Name Priority Date/Time Associated Diagnosis Comme nts CYTOPATHOLOGY Routine 06/22/2000 0:00 EST Results for this procedure are i n the results section . documented in this encounter Results CYTOPATHOLOGY (06/22/2000 0:00 EST) Pathology Report: CYTOPATHOLOGY REPORT [facility] Reports generated via electronic interface contain sindhu ginal data; however they are lacking the format of the original re port. Caution should be taken when reading/interpreting unfo rmatted reports. Name: ? ABAD VIRAMONTES ? Accession #: ? [id number] : ? 1950 (Age: 49) ??F ?Collect Date: ? 05/26 Location: ? [facility] ? Receive Date : ? 06/27/2000 Provider: ?BERT THURMAN MD Copy to: ? Specimen/Source: ?Conventional Pap Test, Cer vix/Endocervix Last Menstrual Period: ? Menstrual/ Status: ? Menopausal ? SPECIMEN ADEQUACY ? Satisfactory for evaluation but limited by obsc uring blood. GENERAL CATEGORIZATION ? Benign Cellular Changes DESCRIPTIVE DIAGNOSIS ? Atrophy with inflammation (Atrophic Vaginitis). ? Document reviewed and electronically signed by: ? SHANNON Limon(ASCP) ? Report Date: ??06/28/2000 14:26 End of Report Specimen Performing Organization Address City/State/ZIP Code Phon e Number [facility] [address] [place] [address] SERVICES [facility] [address] [place] [address] documented in this encounter Visit Diagnoses Not on filedocumented in this encounter
--- OUTSIDE RECORDS SUMMARY | 2022-05-26 10:01 | XMS_ITS | Encounter Summary ---
:1950 Author Organization [facility] Address [address] [place] [address] Care Team Providers Name Role Phone Unavailable Primary Care Provider Unavailable Encounter Details Date Type Department Care Team Description 05/03/2002 Results Only [facility] MD conversion [address] [place] [address] Social History Tobacco Use Types Packs/Day Years Used Date Never Assessed Sex Assigned at Date Recorded Not on file documented as of this encounter Plan of Treatment Not on filedocumented as of this encounter Procedures Procedure Name Priority Date/Time Associated Diagnosis Comme nts CYTOPATHOLOGY Routine 05/03/2002 0:00 EDT Results for this procedure are i n the results section . documented in this encounter Results CYTOPATHOLOGY (05/03/2002 0:00 EDT) Pathology Report: CYTOPATHOLOGY REPORT [facility] Reports generated via electronic interface contain sindhu ginal data; however they are lacking the format of the original re port. Caution should be taken when reading/interpreting unfo rmatted reports. Name: ? ABAD VIRAMONTES ? Accession #: ? [id number] : ? 1950 (Age: 51) ??F ?Collect Date: ? 10/1 07/2001 Location: ? [facility] ? Receive Date : ? 05/06/2002 Provider: ?BERT THURMAN MD Copy to: ? Specimen/Source: ?Conventional Pap Test, Cer vix/Endocervix Last Menstrual Period: ? 1998 Other: ? Additional clinical information: Vulva drynes, dyspare unia ? SPECIMEN ADEQUACY ? Satisfactory for Evaluation - transformation zone component present - air drying artifact/cellular degeneration GENERAL CATEGORIZATION ? Negative for Intraepithelial Lesion or Malignan cy INTERPRETATION ? Reactive cellular laurent nges associated with inflammation present (includes repair). ? Document reviewed and electronically signed by: ? Juliana Lu MD ? Report Date: ??05/15/2002 18:20 End of Report Specimen Performing Organization Address City/State/ZIP Code Phon e Number [facility] [address] [place] [address] SERVICES [facility] [address] [place] [address] documented in this encounter Visit Diagnoses Not on filedocumented in this encounter
--- OUTSIDE RECORDS SUMMARY | 2022-05-26 10:01 | XMS_ITS | Encounter Summary ---
:1950 Author Organization [facility] Address [address] [place] [address] Care Team Providers Name Role Phone Unavailable Primary Care Provider Unavailable Encounter Details Date Type Department Care Team Description 06/27/2002 Results Only [facility] Nae Morris tt, Jaclyn Morel MD conversion [address] [place] [address] [phone] Social History Tobacco Use Types Packs/Day Years Used Date Never Assessed Sex Assigned at Date Recorded Not on file documented as of this encounter Plan of Treatment Not on filedocumented as of this encounter Procedures Procedure Name Priority Date/Time Associated Diagnosis Comme nts SURGICAL PATHOLOGY Routine 06/27/2002 0:00 EST Re sults for this procedure are i n the results section. documented in this encounter Results SURGICAL PATHOLOGY (06/27/2002 0:00 EST) Pathology Report: SURGICAL PATHOLOGY REPORT [facility] Reports generated via electronic interface contain sindhu ginal data; LAB however they are lacking the format of the original re port. Caution should be taken when reading/interpreting unfo rmatted reports. Name: ? ABAD VIRAMONTES ? Accession #: ? [id number] ? : ? 1950 (Age: 51) ??F ? Collect Date: ? 06/27/2002 ? Location: ? [facility] ? Receive Date: ? 002 ? Provider: JACLYN SHAFER MD Copy to: ELIAN IVERSON MD ? Final Pathologic Diagnosis: ? Skin of chest, right, curettage: - Basal cell carcinoma, nodular type. Microscopic Description: ? Irregularly shaped is lands of atypical basal cells infiltrate the dermis. The basal cells have scant c ytoplasm and round dark nuclei. ??Mitotic figures and apoptotic bodies are evident . ??The nuclei at the periphery of the islands have a palisaded arrangement. ??The islands are associated with a fibromyxoid stroma and there is cleft formation bet ween some of the islands and stroma. ??(Dr. Esqueda)/[facility] Document reviewed and electronically signed by: Lola Esqueda MD Report ??Date: 07/01/2002 17:51 By the signature above, the attending physician certif ies that he/she has personally conducted a gross and/or microscopic examin ation of the described specimens and rendered or confirmed the above diagnosi s. Specimen(s) Received: ? R/O BCC = curettage and elec.; exc Clinical History: ? Fair ++ non-healing lesion 1.2 cm x d cm R ant chest x 2 yrs Gross Description: ? Received in formalin labelled Ga gnon and R chest is a collection of ortiz-white, light brown small fragments of soft tissue which measure 0.4 x 0.4 x 0.2 cm in aggregate. ??The s pecimen is entirely submitted in one cassette. ??(Dr. Youssef)/[facility] End of Report Specimen Performing Organization Address City/State/ZIP Code Phon e Number [facility] [address] [place] [address] SERVICES [facility] [address] [place] [address] documented in this encounter Visit Diagnoses Not on filedocumented in this encounter
--- OUTSIDE RECORDS SUMMARY | 2022-05-26 10:01 | XMS_ITS | Encounter Summary ---
:1950 Author Organization [facility] Address [address] [place] [address] Care Team Providers Name Role Phone Racquel Nevarez MD Primary Care Provider Encounter Details Date Type Department Care Team Description 07/26/2017 Results Only [facility] Reg Torres, [address] [place], [place] [id number] (Wo rk) Social History Tobacco Use Types Packs/Day Years Used Date Never Assessed Sex Assigned at Date Recorded Not on file documented as of this encounter Plan of Treatment Not on filedocumented as of this encounter Procedures Procedure Name Priority Date/Time Associated Diagnosis Comme [facility] SURGICAL PATHOLOGY Routine 07/26/2017 19:40 Resul ts for this EST procedure are i n the results section. documented in this encounter Results SURGICAL PATHOLOGY (07/26/2017 19:40 EST) Pathology Report: SURGICAL PATHOLOGY REPORT [facility] Reports generated via electronic interface contain sindhu ginal data; LABORATORY however they are lacking the format of the original re port. SERVICES Caution should be taken when reading/interpreting unfo rmatted reports. Name: ? ABAD VIRAMONTES ? Accession #: ? [id number] ? : ? 1950 (Age: 66 ) ??F ? Collect Date: ? 07/26/2017 ? Location: ? [facility] ? Receive Date: ? 8 ? Provider: REG TORRES DO Copy to: RACQUEL NEVAREZ MD ? Final Pathologic Diagnosis: A. ??SKIN OF FOREHEAD, RIGHT, SHAVE BIOPSY: - Actinic keratosis. - Seborrheic keratosis. B. ??SKIN OF FOREHEAD, LEFT, SHAVE BIOPSY: - Basal cell carcinoma, nodular type, involving the bi opsy base. ?? Document reviewed and electronically signed by: YUVAL PRATT MD Report ??Date: 07/31/2017 11:49 By the signature above, the attending physician certif ies that he/she has personally conducted a gross and/or microscopic examin ation of the described specimens and rendered or confirmed the above diagnosi s. Specimen(s) Received: A. ??Right forehead B. ??Left forehead Clinical History: H/O squamous cell skin cancer, and basal cell skin can cer Gross Description: A. ?Received in formalin labelled with proper p atient identification (initials G, L) and right forehead is a shave biopsy of a ortiz-white pearly, scaly, speckled skin (1.2 x 1.2 x 0.1 cm). The specimen is inked, trisected, and submitted in A1. B. ?Received in formalin labelled with proper p atient identification (initials G, L) and left forehead is a shave b iopsy of ortiz-white scaly skin (1.0 x 1.0 x 0.1 cm) with two ill-defined ortiz-brown hy popigmented macules measuring 0.2 cm and 0.3 cm in greatest dimension. The specimen is inked, bisected, and submitted in B1. VIVIAN Wynne (ASCP) 07/28/2017 9:02 AM End of Report Specimen Performing Organization Address City/State/ZIP Code Phon e Number [facility] [address] [phone] SERVICES documented in this encounter Visit Diagnoses Not on filedocumented in this encounter Care Teams Export Documents Clerk Relationship Specialty Start Date End Date Racquel Nevarez MD PCP - General 05/16/14 documented as of this encounter
--- OUTSIDE RECORDS SUMMARY | 2022-05-26 10:01 | XMS_ITS | Encounter Summary ---
:1950 Author Organization [facility] Address [address] [place] [address] Care Team Providers Name Role Phone Unavailable Primary Care Provider Unavailable Encounter Details Date Type Department Care Team Description 11/05/2009 Results Only [facility] [place] [facility] Hedy Nevarez MD Laboratory Services - [address] [place] [address] [address] [place] [phone] (Wo rk) Social History Tobacco Use Types Packs/Day Years Used Date Never Assessed Sex Assigned at Date Recorded Not on file documented as of this encounter Plan of Treatment Not on filedocumented as of this encounter Procedures Procedure Name Priority Date/Time Associated Comments Diagnosis HPV DETECTION, HIGH Routine 11/05/2009 13:17 Resu lts for this RISK TYPES EDT procedure are i n the results section. CYTOPATHOLOGY Routine 11/05/2009 0:00 Results for this EDT procedure are i n the results section. documented in this encounter Results HUMAN PAPILLOMA VIRUS DNA TEST (11/05/2009 13:17 EDT) Specimen Description Cervix, ThinPrep [facility] vial Result Negative for HPV [facility] types 16, 18, 31, 33, 35, 39, 45, 51, 52, 56, 58, 59, and 68. Report Status Final [facility] 11/17/2009 Specimen Performing Organization Address City/State/ZIP Code Phon e Number [facility] [address] [place] [address] SERVICES [facility] [address] [place] [address] CYTOPATHOLOGY (11/05/2009 0:00 EDT) Pathology Report: CYTOPATHOLOGY REPORT ? [facility] ? LAB Reports generated via electr [email or web address] interface contain original data; ? however they are lacking the format of the original report. ? Caution should be taken when reading/interpreting unformatted reports. ? Name: ? ABAD VIRAMONTES ? Accession #: ? [id number] ? : ? 1950 (Age: 59) ??F ?Collect Date: ? 11/05/2009 ? Location: ? [facility] ? Receive Date: ? 11/09/2009 ? Provider: ?DARIA M DO BBERTIN MD ? Copy to: ? Specimen/Source: ? Pap Test, Cervix/Endocervix, ThinPrep Imaging System ? with manual evaluation ? Last Menstrual Period: ? Menstrual/ Status: ? Post Menopausal ? Other: ? HPVDX - HPV testing requeste d regardless of diagnosis on current ThinPrep Pap ?? test. ? SPECIMEN ADEQUACY ? Satisfactory for Eval uation ? - assessment of transformati on zone component not applicable ( e.g. atrophy, ? vaginal sample, hysterectomy ) ? GENERAL CATEGORIZATION ? Negative for Intraepi thelial Lesion or Malignancy ? Document reviewed and electr onically signed by: ? Apryl Kaufman, SCT( ASCP) ? Report Date: ??04/22/ 2010 10:35 ? End of Report ? Specimen Performing Organization Address City/State/ZIP Code Phon e Number [facility] [address] [place] [address] SERVICES [facility] [address] [place] [address] documented in this encounter Visit Diagnoses Not on filedocumented in this encounter
--- OUTSIDE RECORDS SUMMARY | 2022-05-26 10:01 | XMS_ITS | Encounter Summary ---
:1950 Author Organization [facility] Address [address] [place] [address] Care Team Providers Name Role Phone Unavailable Primary Care Provider Unavailable Encounter Details Date Type Department Care Team Description 05/12/2014 Results Only [facility] Reg Torres, [address] [place] [address] (Wo rk) Social History Tobacco Use Types Packs/Day Years Used Date Never Assessed Sex Assigned at Date Recorded Not on file documented as of this encounter Plan of Treatment Not on filedocumented as of this encounter Procedures Procedure Name Priority Date/Time Associated Diagnosis Comme [facility] SURGICAL PATHOLOGY Routine 05/12/2014 10:57 Resul ts for this EDT procedure are i n the results section. documented in this encounter Results SURGICAL PATHOLOGY (05/12/2014 10:57 EDT) Pathology Report: SURGICAL PATHOLOGY REPORT [facility] Reports generated via electronic interface contain sindhu ginal data; however they are lacking the format of the original re port. Caution should be taken when reading/interpreting unfo rmatted reports. Name: ? ABAD VIRAMONTES ? Accession #: ? [id number] ? : ? 1950 (Age: 63) ??F ?Collect Da te: ? 05/12/2014 ? Location: ? [facility] ? Receive Date: ? 014 ? Provider: REG TORRES DO Copy to: DARIA PRABHAKAR MD ? Addendum ? Date Ordered: ? 05/19/2014 ? Status: Si gned Out ? Date Complete: ? 05/19/2014 ? By: Michelle Anand ? Date Reported: ? 05/19/2014 ? Addendum Diagnosis A. ??SKIN OF FOREHEAD, MID, SHAVE BIOPSY: - Squamous cell carcinoma in situ, inflamed. - Follicular involvement identified. - Lesion extends to peripheral edge and base of biops y specimen. B. ??SKIN OF BROW, RIGHT, SHAVE BIOPSY: - Actinic keratosis. - Lesion extends to peripheral edge and base of biops y specimen. C. ??SKIN OF CHIN, SHAVE BIOPSIES: - Basal cell carcinoma, infiltrative type. - Lesion extends to base of larger biopsy specimen. - Focal basal cell carcinoma present at tissue edge o f one of separately received tissue fragments. D. ??SKIN OF FOREHEAD, LEFT, SHAVE BIOPSY: - Basal cell carcinoma, nodular type. - Lesion extends to base of biopsy specimen. Addendum Comment This addendum is being issued to correct the specimen site for specimen (C) which was inadvertently valerio scribed as rodriguez. ??The diagnosis has been amended as above and otherwise remains unchanged. ??(Dr. Rayshawn yuan)/[facility] Document reviewed and electronically signed by: ? ABAD GIL MD ? Report date: 05/19/2014 By the signature above, the attending physician certif ies that he/she has personally conducted a gross and/or microscopic examin ation of the described specimens and rendered or confirmed the above diagnosi s. Final Report Final Pathologic Diagnosis: A. ??SKIN OF FOREHEAD, MID, SHAVE BIOPSY: - Squamous cell carcinoma in situ, inflamed. See comme nt. - Follicular involvement identified. - Lesion extends to peripheral edge and base of biops y specimen. B. ??SKIN OF BROW, RIGHT, SHAVE BIOPSY: - Actinic keratosis. - Lesion extends to peripheral edge and base of biops y specimen. C. ??SKIN OF RODRIGUEZ, SHAVE BIOPSIES: - Basal cell carcinoma, infiltrative type. ?? - Lesion extends to base of larger biopsy specimen. - Focal basal cell carcinoma present at tissue edge o f one of separately received tissue fragments. ?? D. ??SKIN OF FOREHEAD, LEFT, SHAVE BIOPSY: - Basal cell carcinoma, nodular type. - Lesion extends to base of biopsy specimen. ?? Comment: In specimen C, basal cell carcinoma is present a t the biopsy base in the main tissue fragment and also present at a tissue edge in o ne of the separately received fragments. ??(Dr. Gil)/christoph ? Gross Description: A. ?Received in formalin labelled with proper p atient identification (initials G, L) and #1 mid forehead is a shave biops y of white scaled skin (1.0 x 0.9 cm). ??There is a central 0.2 x 0.1 cm irre gular ortiz macule. Trisected and submitted in A1. B. ?Received in formalin labelled with proper p atient identification (initials G, L) and #2 right brow is a shave biopsy of ortiz-white scaled skin (0.7 x 0.6 cm). Bisected and submitted in B1. C. ?Received in formalin labelled with proper p atient identification (initials G, L) and #3 chin is a shave biopsy of an irregular white smooth nodule (1.0 x 0.4 x 0.1 cm). ??Also rece ived are three irregular white tissues ranging from 0.2 x 0.2 x less than 0.1 cm to 0.5 x 0.3 x 0.1 cm. ??Entirely submitted in C1 nodule, bisected, and C2 tissue fragme nts, intact. D. ?Received in formalin labelled with proper p atient identification (initials G, L) and #4 left forehead is a shav e biopsy of white scaled skin (1.4 x 0.7 cm). There is an eccentric irregular white, focally ortiz scaled nodule that measures 1.0 x 0.6 x 0.1 cm. ??Trisected and subm itted in D1. Candace Jack 05/14/2014 02:29 PM ? Clinical History: Ulcerated skin lesions; clinical diagnosis code: 239.2 ? Specimens Received: A: Skin, shave/punch biopsy B: Skin, shave/punch biopsy C: Skin, shave/punch biopsy D: Skin, shave/punch biopsy Document reviewed and electronically signed by: ? ABAD GIL MD ? Report ??Date: 05/15/2014 16:38 By the signature above, the attending physician certif ies that he/she has personally conducted a gross and/or microscopic examin ation of the described specimens and rendered or confirmed the above diagnosi s. End of Report Specimen Performing Organization Address City/State/ZIP Code Phon e Number [facility] [address] [place] [address] SERVICES [facility] [address] [place] [address] documented in this encounter Visit Diagnoses Not on filedocumented in this encounter
--- OUTSIDE RECORDS SUMMARY | 2022-05-26 10:01 | XMS_ITS | Encounter Summary ---
:1950 Author Organization [facility] Address [address] [place] [address] Care Team Providers Name Role Phone Unavailable Primary Care Provider Unavailable Encounter Details Date Type Department Care Team Description 11/13/2007 Results Only [facility] - Judi Sidhu MD conversion [address] [facility] [address] [place], [place] [address] [place] [phone] Social History Tobacco Use Types Packs/Day Years Used Date Never Assessed Sex Assigned at Date Recorded Not on file documented as of this encounter Plan of Treatment Not on filedocumented as of this encounter Procedures Procedure Name Priority Date/Time Associated Diagnosis Comme nts SURGICAL PATHOLOGY Routine 11/13/2007 0:00 EDT Re sults for this procedure are i n the results section. documented in this encounter Results SURGICAL PATHOLOGY (11/13/2007 0:00 EDT) Pathology Report: SURGICAL PATHOLOGY REPORT [facility] Reports generated via electronic interface contain sindhu ginal data; LAB however they are lacking the format of the original re port. Caution should be taken when reading/interpreting unfo rmatted reports. Name: ? ABAD VIRAMONTES ? Accession #: ? [id number] ? : ? 1950 (Age: 57) ??F ? Collect Date: ? 11/13/2007 ? Location: ? [facility] ? Receive Date: ? 11/14/19 08 ? Provider: JUDI ROSENBERG MD Copy to: ELIAN AU MD ? Final Pathologic Diagnosis: ? Skin of arm, right, excision: 1. ?Basal cell carcinoma, nodular type. ? - Margins negative for basal cell carcinoma. Microscopic Description: ? Irregularly shaped is lands [...] some of the islands and stroma. ??(Dr. Esqueda)/[facility] Document reviewed and electronically signed by: Lola Esqueda MD Report ??Date: 11/16/2007 16:12 By the signature above, the attending physician certif ies that he/she has personally conducted a gross and/or microscopic examin ation of the described specimens and rendered or confirmed the above diagnosi s. Specimen(s) Received: ? BCC R arm Clinical History: ? 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 Received in formalin labelled Ga wilbur and ? BCC R arm is an oriented elliptical excision of skin. ??There is no designation on the surgical requisition slip as to the location of the suture, so it is designated as 12 o'clock. ??The specimen davina ures 1.6 cm 12 - 6 o'clock, 0.6 cm 3 - 9 o'clock, and is excised to a depth of 0.3 cm. ??The 3 o'clock aspect is inked blue and the 9 o'clock aspect is inked nana k. ??The specimen is serially sectioned from 12 - 6 o'clock and is entirely submitted as follows: BLOCK BLACK A1 ?12 o'clock tip reverse en face A2 ?Central sections A3 ?6 o'clock tip reverse en face (Dr. Potter-EDWIGE)/[facility] End of Report Specimen Performing Organization Address City/State/ZIP Code Phon e Number [facility] [address] [place] [address] SERVICES [facility] [address] [place] [address] documented in this encounter Visit Diagnoses Not on filedocumented in this encounter
[2022-05-26] MEDS: Metoprolol 5 MG/5 ML VIAL IVP (10:02)
[2022-05-26] MEDS: Normal Saline 1,000 ML 1000 ML IV (10:03)
[2022-05-26 10:10] LABS: Abs Immature Grans 0.04 10^3/uL (0.0-0.06); Absolute Eosinophil Count 0.16 10^3/uL (0.0-0.7); Absolute Lymphocyte Count 3.65 10^3/uL (1.2-3.4); Absolute Monocyte Count 0.46 10^3/uL (0.1-0.8); Absolute Neutrophil Count 8.84 10^3/uL (1.2-6.7); Basophils % 0.5; Eosinophils % 1.2; HCT 44.6 % (36.0-46.0); Immature Grans % 0.3; Lymphocytes % 27.6; MCH 33.1 pg (27.0-33.0); MCHC 33.6 % (32.0-36.0); MCV 99 fL (80-95); MPV 10.5 fL (8.0-11.0); Monocytes % 3.5; Neutrophils % 66.9; Platelet Count 247 10^3/uL (130-400); RBC 4.53 10^6/uL (3.93-5.22); RDW 12.1 % (11.7-14.6); RDW-SD 44.4 fL; WBC 13.21 10^3/uL (4.4-10.8)
[2022-05-26 10:20] LABS: Absolute Basophil Count 0.07 10^3/uL (0.0-0.2)
[2022-05-26 10:35] LABS: TROPONIN-I 11.3 ug/mL (4.0-12.0)
[2022-05-26 10:36] LABS: ALT 32 U/L (14-59); AST 37 U/L (15-37); Albumin 4.1 g/dL (3.4-5.0); Alkaline Phosphatase 102 U/L (46-116); Anion Gap 18.1 mmol/L (3-11); BUN 23 mg/dL (7-18); Bilirubin, Total 0.5 mg/dL (0.2-1.0); CO2 20.9 mmol/L (21.0-32.0); Calcium 9.9 mg/dL (8.5-10.1); Chloride 103 mmol/L (98-107); Estimated GFR 60.98 (mL/min/1.73m2); Glucose 69 mg/dL (74-106); Magnesium 1.6 mg/dL (1.8-2.4); Potassium 3.1 mmol/L (3.5-5.1); Sodium 142 mmol/L (136-145); Troponin I < 50 ng/L (<or=60)
[2022-05-26 10:43] LABS: D-Dimer 496 ng/mlFEU (<500)
[2022-05-26 10:55] LABS: TSH (W/Ref FT4) 1.66 uIU/mL (0.36-3.74)
[2022-05-26] MEDS: Potassium Chloride 20 MEQ TABCR 40 MEQ PO (11:16)
[2022-05-26] MEDS: Metoprolol 25 MG TAB 12.5 MG PO (12:04)
[2022-05-26] MEDS: Apixaban 5 MG TAB PO ×2 (12:05→17:23)
--- NOTE | 2022-05-26 12:45 | RT.EKG_ITS ---
APPROVED REPORT Exam: Resting ECG Reason for Exam: aflutter Patient Location: E HR:91 bpm ECG Measurements Heart Rate 91 AXIS FL 204 P 71 QRSd 89 QRS 10 QT 336 T 46 QTc 415 Conclusion Sinus rhythm...normal P axis, V-rate 60- [address] [place] [address] Normal Electrocardiogram
[2022-05-26 13:23] LABS: Anion Gap 10.7 mmol/L (3-11); BUN 23 mg/dL (7-18); CO2 24.3 mmol/L (21.0-32.0); CREATININE 0.9 mg/dL (0.55-1.02); Calcium 8.8 mg/dL (8.5-10.1); Chloride 106 mmol/L (98-107); Glucose 73 mg/dL (74-106); Potassium 4.8 mmol/L (3.5-5.1); Sodium 141 mmol/L (136-145)
[2022-05-26 13:33] LABS: Troponin I 72 ng/L (<or=60)
--- NOTE | 2022-05-26 16:15 | RT.EKG_ITS ---
APPROVED REPORT Exam: Resting ECG Reason for Exam: afib Patient Location: E HR:92 bpm ECG Measurements Heart Rate 92 AXIS PA 185 P 82 QRSd 84 QRS 38 QT 334 T 64 QTc 412 Conclusion Sinus rhythm...normal P axis, V-rate 60- 99 Normal Electrocardiogram
[2022-05-26 16:54] LABS: Troponin I 57 ng/L (<or=60)
[2022-05-26] MEDS: Metoprolol 12.5 MG TAB PO (17:23)
== END 2022-05-26 17:51 | disposition home or self-care (01) ==
PROVIDERS: Emergency Provider Emergency Medicine; PCP Family Medicine
DX: I48.92 Unspecified atrial flutter (principal); D72.829 Elevated white blood cell count, unspecified; E87.6 Hypokalemia; R79.89 Other specified abnormal findings of blood chemistry
CPT/HCPCS: 36415; 80048; 80053; 93005; 96361; 96374; 99291; 71045; 80156; 83735; 84443; 84484; 85025; 85379; 93010; J3490

== ENCOUNTER 2022-06-14 14:02 | Outpatient (CLI) | payer MEDICARE, SELFPAY ==
--- NOTE | 2022-06-14 14:00 | RT.EKG_ITS ---
APPROVED REPORT Exam: Resting ECG Reason for Exam: Palpitations f/u ER visit Patient Location: O HR:80 bpm ECG Measurements Heart Rate 80 AXIS TX 178 P 79 QRSd 82 QRS 39 QT 347 T 65 QTc 401 Conclusion Sinus rhythm...normal P axis, V-rate 50- 99 RSR' in V1 or V2, may be normal variant
== END 2022-06-14 14:03 | disposition home or self-care (01) ==
PROVIDERS: PCP Family Medicine; Visit Provider Family Medicine
DX: R00.2 Palpitations (principal); I48.92 Unspecified atrial flutter
CPT/HCPCS: 93010

== ENCOUNTER 2022-06-27 10:56 | Outpatient (CLI) | payer MEDICARE, SELFPAY | END 2022-06-27 10:57 | disposition home or self-care (01) | LOC: CARDOPNVT 10:56 | PROVIDERS: PCP Family Medicine; Visit Provider Family Medicine | DX: I48.92 Unspecified atrial flutter (principal) | CPT/HCPCS: 93246 ==

== ENCOUNTER 2022-07-28 07:43 | Outpatient (CLI) | payer MEDICARE, SELFPAY ==
--- NOTE | 2022-07-28 08:57 | W.CARDEVENT ---
Date of service: 07/28/22 Time of Service: 08:57 Cardiac Event Recorder Referring Provider:: Racquel Nevarez Indications:: Atrial flutter Cardiac Event Note: This is a 14-day cardiac event monitor ordered for atrial flutter Predominant rhythm was sinus with an average heart rate of 79. Minimum was 53, maximum 144 There were rare isolated atrial and ventricular ectopic beats There was no atrial fibrillation, atrial flutter, supraventricular tachycardia, high-grade AV block or pauses greater than 3 seconds Patient symptoms were reported which corresponded to sinus rhythm in the 80s and sinus tachycardia 113/minute
== END 2022-07-28 07:44 | disposition home or self-care (01) ==
LOC: CARDOPNVT 07:43
PROVIDERS: PCP Family Medicine; Visit Provider Internal Medicine Cardiovascular Disease
DX: R00.0 Tachycardia, unspecified (principal)
CPT/HCPCS: 93248

== ENCOUNTER 2022-08-16 11:04 | Outpatient (CLI) | payer MEDICARE, SELFPAY ==
--- NOTE | 2022-08-16 11:00 | RT.EKG_ITS ---
APPROVED REPORT Exam: Resting ECG Reason for Exam: cardiac evaluation Patient Location: O HR:78 bpm ECG Measurements Heart Rate 78 AXIS MO 165 P 76 QRSd 87 QRS 6 QT 348 T 68 QTc 397 Conclusion Sinus rhythm...normal P axis, V-rate 50- 99 Normal Electrocardiogram
== END 2022-08-16 11:05 | disposition home or self-care (01) ==
LOC: DI.CARD 11:05
PROVIDERS: PCP Family Medicine; Visit Provider Internal Medicine Cardiovascular Disease
DX: I48.91 Unspecified atrial fibrillation (principal)
CPT/HCPCS: 93010

== ENCOUNTER → 2022-08-16 11:08 | Outpatient (BNVA) | payer MEDICARE, SELFPAY | PROVIDERS: PCP Family Medicine; Referring Provider Family Medicine; Visit Provider Internal Medicine Cardiovascular Disease | DX: I48.92 Unspecified atrial flutter (principal) | CPT/HCPCS: 93005; 99202; 99214 ==

== ENCOUNTER 2022-08-19 00:04 | Outpatient (CLI) | payer MEDICARE, SELFPAY ==
--- NOTE | 2022-08-19 07:30 | DI.MAMMO_ITS ---
Exam(s) MAMMO SCREENING EXAM: MAMMO SCREENING CLINICAL HISTORY: screening,z12.39 TECHNIQUE: Bilateral full field digital CC and MLO mammographic images were obtained with 3D tomosyn thesis and utilizing computer aided detection (CAD). COMPARISON: Available for comparison. FINDINGS: Masses/Architectural Distortion: None seen. Microcalcifications: No suspicious pleomorphic-type are seen. Skin Thickening/Nipple Retraction: None. IMPRESSION: 1. No significant interval change with no specific features of malignancy noted. 2. Unless there is more urgent need, screening mammography is recommended, as per [employer] guidelines. BI-RADS Category 1 - Negative Breast Density - Category B - Scattered areas of fibroglandular density Breast density category C or D implies that the patient has dense breast tissue. Dense breast tissue is very common and is not abnormal but dense breast tissue can make it harder to find cancer on a ma mmogram. Also, dense breast tissue may increase their breast cancer risk. This information about the result of the mammogram report was provided to the patient to raise their awareness. Use this report when you speak with the patient about their risks for breast cancer, which includes their family hist ory. At that time, you may recommend for more screening tests (Ultrasound or MRI) as they might be us eful based on their risk. A negative radiographic report should not delay biopsy if a dominant or clinically suspicious mass is present. Up to ten percent of cancers are not identified on mammography. A negative report may reinforce clinical impression. Adenosis and dense breasts may obscure an underlying neoplasm. False positive reports average 6 to 10%. Patient will receive a letter notifying them of these results.
--- NOTE | 2022-08-19 07:30 | DI.DEXA_ITS ---
Exam(s) XR DEXA BONE DENSITY W/WO SAW EXAM: XR DEXA BONE DENSITY W/WO SAW CLINICAL HISTORY: osteoporosis,m81.0 TECHNIQUE: COMPARISON: Comparison examination is 09/29/2006. FINDINGS: Lateral Spine Image: Unremarkable. No compression deformities identified. Left hip: Total T-Score: -2.1. This compares to -1.3 on the prior examination. Total Z-Score: -0.6 T- and Z-scores: Findings are consistent with osteopenia. Lumbar Spine: Total T-Score: -1.4. This compares to -1.0 on the prior examination. Total Z-Score: 0.7 T- and Z-scores: Findings are consistent with osteopenia. IMPRESSION: Overall evidence of osteopenia in the lumbar spine and left hip.
== END 2022-08-19 00:24 ==
LOC: DI 00:04
PROVIDERS: PCP Family Medicine; Visit Provider Family Medicine
DX: Z12.31 Encounter for screening mammogram for malignant neoplasm of breast (principal); M85.88 Other specified disorders of bone density and structure, other site
CPT/HCPCS: 77063; 77067; 77080

== ENCOUNTER 2022-09-20 01:35 | Outpatient (CLI) | payer MEDICARE, SELFPAY ==
--- NOTE | 2022-09-20 07:32 | DI.US_ITS ---
APPROVED REPORT EXAM: Comprehensive 2D, Doppler, and color-flow Echocardiogram Patient Location: Out-Patient Systems Support Engineer: Ely Dalal RDCS (AE) Indications: Paroxysmal atrial flutter Other Information Study Quality: Adequate Conclusion Normal left ventricular wall thickness and chamber size. Estimated ejection fraction is 59%. Wall m otion is normal Normal right ventricular size and systolic function Both atria are normal in size There is no structural or hemodynamically significant valvular disease Estimated right ventricular systolic pressure is 26 mmHg Wall motion Left Ventricle The left ventricle is normal size. The left ventricular systolic function is normal. The left ventric ular ejection fraction is within the normal range. There is normal left ventricular wall thickness. T here is normal LV segmental wall motion. There is no ventricular septal defect visualized. LVEF is 59 %. Right Ventricle The right ventricle is normal size. The right ventricular systolic function is normal. Atria The left atrium size is normal. The right atrium size is normal. The interatrial septum is intact wit h no evidence for an atrial septal defect. Aortic Valve The aortic valve is normal in structure. Aortic valve is trileaflet. There is no aortic valvular sten osis. No aortic regurgitation is present. Mitral Valve The mitral valve is normal in structure. No evidence of mitral valve stenosis. Trace mitral regurgita tion. Tricuspid Valve The tricuspid valve is normal in structure. There is no tricuspid valve stenosis. Trace to mild tricu spid regurgitation. The RVSP is 26.2 mmHg. Pulmonic Valve The pulmonary valve is normal in structure. There is no pulmonic valvular stenosis. There is no pulmo sophie valvular regurgitation. Great Vessels The aortic root is normal in size. The ascending aorta is normal in size. Aortic arch is normal in ca liber. IVC is normal in size and collapses >50% with inspiration. Pericardium There is no pericardial effusion. 2D Dimensions IVSD d PLAX 0.79 cm F: 0.6-1.0 LV Vol A2C d MOD 65.2 mL LVPW d PLAX 0.75 cm F: 0.6 - 1.0 LV Vol A4C d MOD 62.2 mL LVID d PLAX 3.69 cm F: 3.8 - 5.2 LA vol/ BSA A2C s A-L 22.8 mL/m2 LVDs 2.55 cm F: 2.2 - 3.5 LA vol/ BSA A4C s A-L 16.6 mL/m2 Ao Root d 2.70 cm F: 2.7 - 3.3 LA Vol/ BSA Biplane s A-L 21.6 mL/m2 RA Area A4C 13.28 cm2 LA Area A4C s MOD 11.87 cm2 RA Vol/ BSA A4C s A-L 19.7 mL/m2 LA Area A2C s MOD 15.46 cm2 Ao Asc Diam d 3.04 cm F: 2.3 - 3.1 LV EF A4C MOD 58.4 % LV EF Teichholz 57.9 % LV EF A2C MOD 60.8 % LVEF (Potter's) 59.58 % F: 54 - 74 LV EF Biplane MOD 59.6 % LV Volume 50.40 mL F: 46 - 106 SV 38.03 mL LV Volume Index 29.13 mL/m2 F: 29 - 61 SV Index 22.02 mL/m2 LV Vol Biplane MOD 63.8 mL FS 29.85 % M-Mode TAPSE 2.51 cm (M/F) >1.7 LV Diastology MV E' medial 0.073 (>0.07 m/s) E/A Ratio 0.9 LV E/e MED 9.15 (<14) MV E Vmax 0.67 (0.4-1.3 m/s) MV E' lateral 0.093 (>0.1 m/s) MV A Vmax 0.75 (0.4-1.3 m/s) LV E/e LAT 7.20 (<14) MV E/A Ratio 0.86 MV E/E' medial 9.17 MV E/E' lateral 7.24 Aortic Valve LVOT Area 2.86 cm2 AoV Area Vmax 2.72 cm2 LVOT Vmax 1.03 m/s AoV Area/ BSA (Vmax) 1.58 cm2/m2 LVOT Mean Dileep. 0.62 m/s KYMBERLY Mean Dileep. 2.23 cm2 LVOT Peak Grad 4.3 mmHg KYMBERLY Mean Dileep. Index 1.29 cm2/m2 LVOT Mean Grad 1.9 mmHg LVOT VTI 0.271 m LVOT Diam s 1.90 cm AoV Vmax 1.09 m/s Velocity Ratio 0.94 AoV Mean Dileep. 0.80 m/s AoV Peak Grad 4.7 mmHg LVOT SV 77.50 mL AoV Mean Grad 2.8 mmHg AoV VTI 0.240 m AoV Area VTI 3.23 cm2 AoV Area/ BSA (VTI) 1.87 cm/m2 Mitral Valve MV DT 224 (160-240 msec) MV PHT 65 msec MV Area PHT 3.39 cm2 Pulmonary Valve PV Vmax 0.78 (0.5-1.5 m/s) RVOT Peak Gr. 1.38 mmHg PV Peak Grad 2.4 mmHg RVOT Mean Gr. 0.65 mmHg PV Mean Grad 1.3 mmHg RVOT VTI 0.140 m PV VTI 0.159 m RVOT Vmax 0.59 m/s Tricuspid Valve TR Peak Grad 23.1 mmHg TR Vmax 2.41 m/s RA Pressure 3.00 mmHg RVSP (TR) 26.2 mmHg
== END 2022-09-20 01:55 ==
LOC: DI 01:35
PROVIDERS: PCP Family Medicine; Visit Provider Internal Medicine Cardiovascular Disease
DX: I48.92 Unspecified atrial flutter (principal)
CPT/HCPCS: 93306

== ENCOUNTER → 2022-09-23 09:50 | Outpatient (BNVA) | payer MEDICARE, SELFPAY | PROVIDERS: PCP Family Medicine; Referring Provider Family Medicine; Visit Provider Internal Medicine Cardiovascular Disease | DX: I48.92 Unspecified atrial flutter (principal) | CPT/HCPCS: 99212; 99213 ==

== ENCOUNTER → 2023-07-25 00:21 | Outpatient (CLI) | payer MEDICARE, SELFPAY ==
--- NOTE | 2023-07-25 08:15 | DI.CT_ITS ---
Exam(s) CT SINUS WO EXAM: CT SINUS WO CLINICAL HISTORY: sinus infection,chronic sinusitis,j32.9. Evaluate for sinusitis. TECHNIQUE: Imaging Protocol: Axial computed tomography images with coronal and sagittal reformatted images were created and reviewed. COMPARISON: No exams were available for comparison FINDINGS: AXIAL IMAGES: Frontal sinuses: Normally aerated. Ethmoid air cells: Normally aerated. Maxillary sinuses: There is mild mucosal thickening seen in the right maxillary sinus. There also ap pears to be mucous retention cyst present. There is mild mucosal thickening in the floor of the left maxillary sinus. Sphenoid sinus: Normally aerated. Ostiomeatal complexes: Patent. There is a right middle turbinate jessica bullosa. Osseous nasal septum: Midline. Visualized regional soft tissues: No acute findings. Orbits: Unremarkable. Bones: Unremarkable. Mastoid Air Cells: Normally aerated. IMPRESSION: 1. Mild mucosal thickening in the maxillary sinuses bilaterally. 2. Mucous retention cyst in the right maxillary sinus. 3. No fluid levels are seen in the sinuses. RADIATION DOSE DELIVERED: Total DLP Total DLP DATA REPOSITORY: All CT scans at this facility are submitted to the National Radiology Data Registry (NRDR) Dose Index Registry (DIR) with the [employer] (ACR). RADIATION OPTIMIZATION: All CT scans at this facility use at least one of these dose optimization te chniques: automated exposure control; mA and/or kV adjustment per patient size (includes targeted exa ms where dose is matched to clinical indication); or iterative reconstruction.
== END ==
PROVIDERS: PCP Family Medicine; Visit Provider Family Medicine
DX: J32.0 Chronic maxillary sinusitis (principal)
CPT/HCPCS: 70486

== ENCOUNTER → 2023-08-21 01:58 | Outpatient (CLI) | payer MEDICARE, SELFPAY ==
--- NOTE | 2023-08-21 07:30 | DI.MAMMO_ITS ---
Exam(s) MAMMO SCREENING EXAM: MAMMO SCREENING CLINICAL HISTORY: screening,Z12.39 TECHNIQUE: Bilateral full field digital CC and MLO mammographic images were obtained with 3D tomosyn thesis and utilizing computer aided detection (CAD). COMPARISON: Available for comparison. FINDINGS: Masses/Architectural Distortion: None seen. Microcalcifications: No suspicious pleomorphic-type are seen. Skin Thickening/Nipple Retraction: None. IMPRESSION: 1. No significant interval change with no specific features of malignancy noted. 2. Unless there is more urgent need, screening mammography is recommended, as per [employer] guidelines. BI-RADS Category 1 - Negative Breast Density - Category B - Scattered areas of fibroglandular density Breast density category C or D implies that the patient has dense breast tissue. Dense breast tissue is very common and is not abnormal but dense breast tissue can make it harder to find cancer on a ma mmogram. Also, dense breast tissue may increase their breast cancer risk. This information about the result of the mammogram report was provided to the patient to raise their awareness. Use this report when you speak with the patient about their risks for breast cancer, which includes their family hist ory. At that time, you may recommend for more screening tests (Ultrasound or MRI) as they might be us eful based on their risk. A negative radiographic report should not delay biopsy if a dominant or clinically suspicious mass is present. Up to ten percent of cancers are not identified on mammography. A negative report may reinforce clinical impression. Adenosis and dense breasts may obscure an underlying neoplasm. False positive reports average 6 to 10%. Patient will receive a letter notifying them of these results.
== END ==
PROVIDERS: PCP Family Medicine; Visit Provider Family Medicine
DX: Z12.31 Encounter for screening mammogram for malignant neoplasm of breast (principal)
CPT/HCPCS: 77063; 77067

== ENCOUNTER 2024-02-03 20:48 | Emergency (ER) | payer MEDICARE, SELFPAY ==
[2024-02-03] VITALS (24 sets, daily range): BP systolic 189–229; BP diastolic 73–99; PULSE 76–92; RESP 8–19; TEMP 36.8–36.9; O2SAT 93–98
--- NOTE | 2024-02-03 20:45 | RT.EKG_ITS ---
APPROVED REPORT Exam: Resting ECG Reason for Exam: chest pain Patient Location: E HR:84 bpm ECG Measurements Heart Rate 84 AXIS ND 181 P 81 QRSd 89 QRS 24 QT 352 T 61 QTc 417 Conclusion Sinus rhythm...normal P axis, V-rate 60- 99
--- NOTE | 2024-02-03 21:15 | DI.CT_ITS ---
Exam(s) CT ABDOMEN PELVIS W EXAM: CT ABDOMEN PELVIS W CLINICAL HISTORY: epigastric pain. TECHNIQUE: Imaging Protocol: Axial computed tomography images with coronal and sagittal reformatted images were created and reviewed CONTRAST MATERIAL: Intravenous: Omnipaque 350 Contrast volume:90 ml Oral: yes / no COMPARISON: CT CT ABDOMEN PELVIS W from 09/28/2020 FINDINGS: ABDOMEN and PELVIS: Lung Bases: No acute findings. Liver: Normal density. No suspicious mass. Stable simple cyst anteriorly. Gallbladder and biliary tract: No radiodense calculus. No biliary dilation. Pancreas: Mildly atrophic. No abnormal calcifications or inflammatory process. No evidence of mass. Spleen: Normal. Kidneys: Normal size and axis mild contour deformity at the upper pole of the right kidney likely rep resents an area of scarring.. No radiodense stones. No obstructive uropathy. No suspicious masses se en. Adrenal glands: No masses seen. Vasculature: Abdominal aorta non-dilated. Soft tissues: Unremarkable. Bladder: No gross wall thickening. No calculi.No focal mass. Bowel: Stomach is empty and not well evaluated. No obstruction. No bowel wall thickening. Surgica l clips at base of cecum. Peritoneal cavity: No ascites. No focal collection. No mesenteric inflammatory response. Bones: Unremarkable for age. Reproductive organs: Unremarkable for age. Lymph nodes: No pathologically enlarged lymph nodes. IMPRESSION:: No acute abnormality in the abdomen or pelvis. RADIATION DOSE DELIVERED: Total DLP DATA REPOSITORY: All CT scans at this facility are submitted to the National Radiology Data Registry (NRDR) Dose Index Registry (DIR) with the [employer] (ACR). RADIATION OPTIMIZATION: All CT scans at this facility use at least one of these dose optimization te chniques: automated exposure control; mA and/or kV adjustment per patient size (includes targeted exa ms where dose is matched to clinical indication); or iterative reconstruction.
[2024-02-03] MEDS: Normal Saline 1,000 ML 1000 ML IV (21:32)
[2024-02-03] MEDS: FAMOTIDINE 20 MG in Normal Saline 100 ML 400 MG IVPB (21:50)
[2024-02-03 21:52] LABS: Abs Immature Grans 0.01 10^3/uL (0.0-0.06); Absolute Basophil Count 0.02 10^3/uL (0.0-0.2); Absolute Eosinophil Count 0.03 10^3/uL (0.0-0.7); Absolute Lymphocyte Count 1.52 10^3/uL (1.2-3.4); Absolute Monocyte Count 0.37 10^3/uL (0.1-0.8); Absolute Neutrophil Count 2.82 10^3/uL (1.2-6.7); Basophils % 0.4 %; Eosinophils % 0.6 %; HGB 13.3 g/dL (11.2-15.7); Immature Grans % 0.2 %; Lymphocytes % 31.9 %; MCHC 35.9 % (32.0-36.0); MCV 95 fL (80-95); MPV 9.9 fL (8.0-11.0); Monocytes % 7.8 %; Neutrophils % 59.1 %; Platelet Count 210 10^3/uL (130-400); RBC 3.91 10^6/uL (3.93-5.22); RDW 11.2 % (11.7-14.6); RDW-SD 38.5 fL; WBC 4.77 10^3/uL (4.4-10.8)
[2024-02-03 22:05] LABS: Anion Gap 9.2 mmol/L (3-11); BUN 11 mg/dL (7-18); CO2 26.8 mmol/L (21.0-32.0); CREATININE 0.8 mg/dL (0.55-1.02); Calcium 9.6 mg/dL (8.5-10.1); Chloride 92 mmol/L (98-107); Estimated GFR 78.72 (mL/min/1.73m2); Glucose 117 mg/dL (74-106); Potassium 3.2 mmol/L (3.5-5.1); Sodium 128 mmol/L (136-145)
[2024-02-03 22:07] LABS: Lipase 18 U/L (16-77)
[2024-02-03 22:12] LABS: ALT 24 U/L (14-59); AST 20 U/L (15-37); Alkaline Phosphatase 88 U/L (46-116); Bilirubin, Direct 0.2 mg/dL (0.0-0.2); Bilirubin, Total 0.75 mg/dL (0.2-1.0); Total Protein 7.5 g/dL (6.4-8.2)
[2024-02-03 22:13] LABS: Magnesium 1.5 mg/dL (1.8-2.4); Troponin I < 50 ng/L (< or =60)
[2024-02-03] MEDS: Omnipaque 350 MG/ML 100 ML BTL IJ (22:15)
[2024-02-03] MEDS: Normal Saline - Diluent 50 ML VIAL IJ (22:16)
[2024-02-03 22:27] LABS: Bilirubin Negative (Negative); Blood Negative (Negative); Clarity Clear (Clear); Glucose Negative (Negative); Ketones Trace mg/dL (Negative); Leukocyte Esterase Trace (Negative); Nitrite Negative (Negative); Urobilinogen 0.2 mg/dL (Up to 0.2)
[2024-02-03 22:36] LABS: Bacteria Few HPF (Negative); C & S Indicated? No; Casts Negative LPF (Negative); Crystals Negative HPF (Negative); Epithelial Cells Rare HPF (Negative); Mucus Negative (Negative); Other Cells Rare Renal (Negative); RBC 0-2 HPF (0-2)
[2024-02-03] MEDS: MORPHine 10 MG/ML VIAL 2 MG IVP (23:06)
[2024-02-03] MEDS: Normal Saline 500 ML IV (23:07)
--- NOTE | 2024-02-03 23:24 | ED.GENADUL_ITS ---
Discharge Plan Disposition Patient Disposition: Home Discharge Details Clinical Impression: Gastritis, Enteritis, Diarrhea, Hypomagnesemia, Hypokalemia, Acute hyponatremia Primary Care Provider: Racquel Nevarez ED Provider: Siobhan Corona Home Meds and New Rx's Prescriptions: New magnesium 250 mg tablet 250 mg PO DAILY Qty: 10 0RF potassium chloride 20 mEq tablet,ER particles/crystals 20 meq PO DAILY Qty: 5 0RF Continued Caltrate 600 plus D 600 mg (1,500 mg)-800 unit tablet,chewable 1 tab PO DAILY ascorbic acid (vitamin C) 500 mg tablet 500 mg PO DAILY chlorpheniramine maleate [Aller-Chlor] 4 mg tablet 4 mg PO Q8H PRN carbamazepine [Carbatrol] 300 mg capsule, ER multiphase 12 hr 300 mg PO BID Qty: 180 5RF simethicone 250 mg capsule 250 mg PO DAILY acetaminophen [Tylenol Arthritis Pain] 650 mg tablet extended release 650 mg PO Q12H aspirin 81 mg tablet,chewable 81 mg PO DAILY estradiol 0.01 % (0.1 mg/gram) cream 2 g VG Q48H Qty: 42.5 12RF triamcinolone acetonide 0.1 % cream 1 applic TP BID Qty: 80 4RF Rx Instructions: apply to foot Shingrix (PF) 50 mcg/0.5 mL suspension for reconstitution 0.5 ml IM ONCE Qty: 1 1RF Rx Instructions: as a single dose. Repeat in 2 months albuterol sulfate 90 mcg/actuation HFA aerosol inhaler 2 puff inhalation QID PRN (Reason: shortness of breath or wheezing) Qty: 8.5 5RF fluticasone propionate 50 mcg/actuation spray,suspension 2 spray intranasal DAILY 90 Days Qty: 48 4RF Rx Instructions: administer into each nostril One Daily Plus Minerals 1 EACH tablet 1 ea PO DAILY vitamin E 400 UNIT capsule 1 cap PO DAILY tizanidine 2 mg capsule 2 mg PO TID PRN (Reason: muscle spasticity) Qty: 30 0RF Discharge Instructions Instructions: High Potassium Diet, Low Magnesium Level (DC), Gastritis ED, Hyponatremia Additional Instructions: Your magnesium, potassium, and sodium levels are low, please take supplementation prescription is at the pharmacy You may take the oxycodone sparingly, do not operate your vehicle for 8 hours after taking this medication or consume with any alcohol Take Pepcid daily while your symptoms persist and simethicone as detailed on the [id number] box You have a possible mass on your kidney, please have your doctor reassess this determine if any additional testing is indicated There is a question of pancreatitis on your CAT scan, however your lipase is within normal limits and your pain is lower, I do not think you have acute pancreatitis, however should your symptoms worsen please return for reassessment Clear liquid diet, try to increase the sodium in your diet for the next 24 hours followed by bland foods as tolerated Return should you have new or worsening complaints Referrals: Racquel Nevarez MD, [place] [Primary Care Provider] - 2 days HPI General Date/Time Provider Initiated Documentation: 02/03/24 20:53 . HPI Narrative: This jenni 73-year-old female presents with report of diarrhea that started this morning followed by some lower abdominal discomfort. Denies any urinary symptoms. States had approximately 4 episodes of diarrhea, took an Imodium and feeling improved. Does report some persistent pain that feels like gas per patient. Denies any fever or chills. Denies any chest discomfort. Denies any real nausea or vomiting. Concerned that she had some undercooked chicken potentially last evening. Denies any blood in stool or recent antibiotic consumption. Denies any associated shortness of breath. Did take some simethicone and Tylenol prior to arrival without significant alleviation of pain. Denies known exacerbating or alleviating factors. Related Data Home Medications ?Medication ?Instructions ?Recorded ?Confirmed multivitamin with minerals (One 1 ea PO DAILY 01/25/13 02/03/24 Daily Plus Minerals tablet) vitamin E 268 mg (400 unit) capsule 1 cap PO DAILY 02/04/13 02/03/24 ascorbic acid (vitamin C) 500 mg 500 mg PO DAILY 07/10/18 02/03/24 tablet calcium carbonate 600 mg-vitamin 1 tab PO DAILY 07/10/18 02/03/24 D3 20 mcg (800 unit) chewable tablet (Caltrate 600 plus D) chlorpheniramine maleate 4 mg 4 mg PO Q8H PRN 07/15/19 02/03/24 tablet (Aller-Chlor) Carbatrol 300 mg capsule, extended 300 mg PO BID #180 tab-caps 08/11/20 02/03/24 release (carbamazepine) acetaminophen 650 mg 650 mg PO Q12H 01/18/21 02/03/24 tablet,extended release (Tylenol Arthritis Pain) simethicone 250 mg capsule 250 mg PO DAILY 06/23/22 02/03/24 aspirin 81 mg chewable tablet 81 mg PO DAILY 01/17/23 02/03/24 albuterol sulfate 90 mcg/actuation 2 puff inhalation QID PRN 07/13/23 02/03/24 aerosol inhaler shortness of breath or wheezing #8.5 grams estradiol 0.01% (0.1 mg/gram) 2 g vaginal Q48H #42.5 grams 07/13/23 02/03/24 vaginal cream triamcinolone acetonide 0.1 % 1 applic topical BID #80 grams 07/13/23 02/03/24 topical cream varicella-zoster glycoE [id number] 0.5 ml IM ONCE #1 ea 07/13/23 02/03/24 adj(PF) 50 mcg/0.5 mL IM susp, kit (Shingrix (PF)) tizanidine 2 mg capsule 2 mg PO TID PRN muscle spasticity 11/06/23 02/03/24 #30 caps fluticasone propionate 50 2 spray intranasal DAILY 90 days 11/21/23 02/03/24 mcg/actuation nasal #48 grams spray,suspension magnesium 250 mg tablet 250 mg PO DAILY #10 tabs 02/03/24 potassium chloride 20 mEq 20 meq PO DAILY #5 tabs 02/03/24 tablet,extended release(part/cryst) Previous Rx's ?Medication ?Instructions ?Recorded Carbatrol 300 mg capsule, extended 300 mg PO BID #180 tab-caps 08/11/20 release (carbamazepine) albuterol sulfate 90 mcg/actuation 2 puff inhalation QID PRN 07/13/23 aerosol inhaler shortness of breath or wheezing #8.5 grams estradiol 0.01% (0.1 mg/gram) 2 g vaginal Q48H #42.5 grams 07/13/23 vaginal cream triamcinolone acetonide 0.1 % 1 applic topical BID #80 grams 07/13/23 topical cream varicella-zoster glycoE [id number] 0.5 ml IM ONCE #1 ea 07/13/23 adj(PF) 50 mcg/0.5 mL IM susp, kit (Shingrix (PF)) tizanidine 2 mg capsule 2 mg PO TID PRN muscle spasticity 11/06/23 #30 caps fluticasone propionate 50 2 spray intranasal DAILY 90 days 11/21/23 mcg/actuation nasal #48 grams spray,suspension magnesium 250 mg tablet 250 mg PO DAILY #10 tabs 02/03/24 potassium chloride 20 mEq 20 meq PO DAILY #5 tabs 02/03/24 tablet,extended release(part/cryst) Allergies Allergy/AdvReac Type Severity Reaction Status Date / Time alprazolam AdvReac Unknown pt.states Verified 02/03/24 20:57 it made me loopy amoxicillin (From Augmentin) AdvReac Diarrhea Verified 02/03/24 20:57 clavulanic acid (From AdvReac Diarrhea Verified 02/03/24 20:57 Augmentin) erythromycin base AdvReac Diarrhea Verified 02/03/24 20:57 General Stated Complaint: Chest Pain LORENZO: 2 Exam Narrative Exam Narrative: Alert, oriented, very pleasant 73-year-old female, mild tenderness without rebound and guarding to left lower abdomen, no CVA tenderness, neurovascularly intact, moist mucous membranes. No active vomiting. Lungs clear to au scultation, cardiac rate rhythm regular Course Vital Signs Vital signs: Vital Signs Pulse 88 02/03/24 20:52 Respiratory Rate 16 02/03/24 20:52 Blood Pressure 229/86 H 02/03/24 20:52 Pulse Oximetry 94 02/03/24 20:52 Temperature 36.9 C 02/03/24 22:43 Pulse 80 02/03/24 23:12 Pulse 85 02/03/24 23:12 Respiratory Rate 13 02/03/24 23:12 Blood Pressure 197/84 H 02/03/24 23:12 Blood Pressure Mean 123 02/03/24 23:12 Blood Pressure Position Sitting 02/03/24 20:52 Pulse Oximetry 95 02/03/24 23:12 Oxygen Delivery Method Room Air 02/03/24 20:52 Oxygen Flow Rate 0 02/03/24 20:52 Pain Level 6 02/03/24 23:06 Lab/Test Results Lab/Test Results: Laboratory Tests Range/Units 02/03/24 02/03/24 02/03/24 21:14 21:30 22:15 WBC (4.4-10.8) 10^3/uL 4.77 RBC (3.93-5.22) 10^6/uL 3.91 L Hgb (11.2-15.7) g/dL 13.3 Hct (36.0-46.0) % 37.0 MCV (80-95) fL 95 MCH (27.0-33.0) pg 34.0 H MCHC (32.0-36.0) % 35.9 RDW (11.7-14.6) % 11.2 L Plt Count (130-400) 10^3/uL 210 MPV (8.0-11.0) fL 9.9 Immature Gran % % 0.2 Neutrophils % % 59.1 Lymphocytes % % 31.9 Monocytes % % 7.8 Eosinophils % % 0.6 Basophils % % 0.4 Nucleated RBC % (0.0-0.3) % 0.0 Absolute Neutrophils (1.2-6.7) 10^3/uL 2.82 Absolute Lymphocytes (1.2-3.4) 10^3/uL 1.52 Absolute Monocytes (0.1-0.8) 10^3/uL 0.37 Absolute Eosinophils (0.0-0.7) 10^3/uL 0.03 Absolute Basophils (0.0-0.2) 10^3/uL 0.02 Sodium Cancelled 128 L Potassium Cancelled 3.2 L Chloride Cancelled 92 L Carbon Dioxide Cancelled 26.8 Anion Gap Cancelled 9.2 BUN Cancelled 11 Creatinine Cancelled 0.8 Est GFR (CKD-EPI 2020) Cancelled 78.72 Glucose Cancelled 117 H Calcium Cancelled 9.6 Magnesium (1.8-2.4) mg/dL 1.5 L Total Bilirubin Cancelled 0.75 Conjugated Bilirubin (0.0-0.2) mg/dL 0.2 AST Cancelled 20 ALT Cancelled 24 Alkaline Phosphatase Cancelled 88 Troponin I (< or =60) ng/L < 50 Total Protein Cancelled 7.5 Albumin Cancelled 4.0 Lipase (16-77) U/L 18 Urine Color (Yellow) Yellow Urine Clarity (Clear) Clear Urine pH (5-8) 6.0 Ur Specific Rewey (1.005-1.025) 1.010 Urine Protein (Neg-Trace) mg/dL Negative Urine Ketones (Negative) mg/dL Trace H Urine Blood (Negative) Negative Urine Nitrite (Negative) Negative Urine Bilirubin (Negative) Negative Urine Urobilinogen (Up to 0.2) mg/dL 0.2 Ur Leukocyte Esterase (Negative) Trace H Urine RBC (0-2) HPF 0-2 Urine WBC (0-5) HPF 5-10 Ur Epithelial Cells (Negative) HPF Rare Urine Crystals (Negative) HPF Negative Urine Bacteria (Negative) HPF Few Urine Casts (Negative) LPF Negative Urine Mucus (Negative) Negative Urine Other (Negative) Rare Renal Ur Culture Indicated? No Urine Glucose (Negative) mg/dL Negative Medical Decision Making 73-year-old female presenting with abdominal pain and diarrhea, diarrhea resolved post Imodium. Labs and CT were ordered for further evaluation, EKG without acute abnormality, troponin within normal limits, lipase within normal limits, CBC without leukocytosis or anemia. Hypomagnesemia at 1.5, given magnesium supplementation in the emergency department, 800, hypokalemia 3.2 given potassium supplementation in the emergency department. CT with question of pancreatitis although patient does not have tenderness overlying her pancreas and her lipase is within the normal limits. There is a question of a mass on her kidney, she will be referred back for her primary care physician for further evaluation of this. Question of esophagitis and gastritis with enteritis. This is more consistent with patient's presentation. She is feeling improvement after 2 mg of IV morphine, IV fluids, Pepcid. At this time I think she stable for discharge home. I will give a little prescription for oxycodone should she need it and encourage patient to take Pepcid, magnesium, and potassium supplementation encouraging her to also sprinkle a little bit of salt on her food to increase her's sodium level. Return precautions reviewed and patient was discharged home in stable condition with stable vitals, recheck on Monday recommended Quality:SDOH Health Related Social Needs: No Data to Display PFSH All Active Problems (Updated 02/03/24 @ 23:42 by VIVIAN Finley) Acute hyponatremia (Acute) Hypokalemia (Acute) Hypomagnesemia (Acute) Diarrhea (Acute) Enteritis (Acute) Gastritis (Acute) Cough (Acute) Chronic sinusitis (Acute) Atrial flutter (Acute) Atrial fibrillation (Chronic) Anticoagulation management encounter (Acute) Low back pain (Acute) Actinic keratitis (Chronic 05/12/14) 05/12/14 ;RIGHT BROW Annual physical exam (Acute 05/12/15) 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 Has not had a seizure since. Surgical History S/P bilateral oophorectomy S/P appendectomy H/O section H/O arthroscopy of left knee 07/24/02 Skin Cancer Removal 09/25/17 LEFT FOREHEAD (BASAL CELL) Colonoscopy - [facility] [place] 2007;[facility] Family History Mother , AGE 77 Multiple myeloma Father , AGE 85 Heart disease CHF Prostate cancer Sister , age 56 Essential hypertension Glioblastoma Sister No problems noted. Brother No problems noted. Paternal Grandfather , AGE 74 Heart disease Maternal Grandmother , BLOOD CLOT at age 59. No problems noted. Paternal Grandmother , KIDNEY DISEASE at age 41. No problems noted. Uncle Bone cancer Son Glioblastoma Son No problems noted. Daughter No problems noted. Maternal Grandfather , age 68 No problems noted. Social History Smoking/Tobacco Use Status: Never Second Hand Exposure: Yes Smoking risk assessment performed?: Yes Alcohol Intake: current Alcohol Intake frequency: a few times a week Alcohol type: beer and wine Drug use: Never Substance use type: does not use Counseling given: No Counseling provided: none Adopted: No Caregiver/Support person: No Foster care: No Household members: spouse Housing: house Number of Children: 3 number of grandchildren: 2 Communication Needs: None Education Level: college current occupation: retired Pets and animals: No Sexually active: Yes Do you think of yourself as: straight/heterosexual Current gender identity: female What is your relationship status?: How often do you talk on the phone with friends or family?: three or more times per week How often do you get together with friends or relatives?: decline to answer How often do you attend adventism or congregation services?: decline to answer Do you belong to any clubs or organized social groups?: decline to answer Panel score (0-1 are the most socially isolated patients): 2 What type of physical activity do you participate in: walking and other Details: recumbent bike Frequency: daily Ludres/Protestant: None Special lurdes needs: No Agree to transfusion: Yes Seatbelt use: always Drive intox or ride w/intox superintendent drivers: No Working smoke detector in home: Yes Carbon monox detector in home: Yes Firearms in home: No Do you feel safe at home: Yes Do you feel safe in your relationship?: Yes Victim of physical abuse: No Victim of emotional abuse: No Victim of sexual abuse: No
--- NOTE | 2024-02-03 23:26 | DI.VRAD_ITS ---
PROCEDURE INFORMATION: Exam: CT Abdomen And Pelvis With Contrast Exam date and time: 02/03/2024 10:24 PM Age: 73 years old Clinical indication: Abdominal pain; Patient HX: Epigastric pain TECHNIQUE: Imaging protocol: Computed tomography of the abdomen and pelvis with contrast. COMPARISON: CT ABDOMEN PELVIS W 09/28/2020 1:59 PM FINDINGS: Lungs: The lungs are normal. Pleural spaces: There is no evidence of pneumothorax. There are no pleural effusions present. Heart: The cardiac structures are normal. Esophagus: There is mild thickening of the distal esophageal wall. Consider esophagitis. Liver: Low-attenuation lesion present within the right liver lobe slightly larger measuring 18.5 x 23.5 mm versus 13.8 x 20 mm compared to prior study consistent with Simple hepatic cyst. The liver otherwise shows no focal lesions. There is a diffuse decrease in hepatic parenchymal density, consistent with mild fatty infiltration. There is no evidence of intrahepatic or extrahepatic biliary ductal dilation. Gallbladder and biliary ducts: The gallbladder is normal. There is no cholelitiasis, wall thickening or pericholecystic fluid to suggest cholecystitis. Pancreas: There is mild pancreatic atrophy and fatty replacement. There is soft tissue stranding present at the head of the pancreas. Focal pancreatitis cannot be excluded. Is best demonstrated on images 26 through 28 axial series 4. Spleen: The spleen is normal. Adrenal glands: Normal. No mass. Kidneys and ureters: The kidneys are normal. There is a contour abnormality present within the mid to upper pole of the right kidney. A mass cannot be excluded. This may represent an area of prior infection or infarction.This was not present on the prior study of 09/28/2020. Stomach and bowel: There is thickening of the gastric wall with edema.There are fluid-filled loops of small bowel with air-fluid levels. There is bowel wall thickening and inflammatory changes. No evidence of obstruction. Findings are consistent with acute gastroenteritis. There is no evidence of intestinal obstruction. Appendix: There has been an appendectomy. Intraperitoneal space: There is no free intraperitoneal air. There is no evidence of free intraperitoneal or pelvic fluid. Vasculature: The aorta demonstrates mild atherosclerotic calcification. The arterial peripheral vasculature demonstrates diffuse mild atherosclerotic calcification. Lymph nodes: There is no evidence of lymphadenopathy. Urinary bladder: There is nonspecific bladder wall thickening. This may be related to incomplete bladder filling. Reproductive: The uterus is normal. Bones/joints: The skeletal structures and soft tissues show no evidence of fracture or other acute processes. Soft tissues: The extra-abdominal soft tissues are normal. IMPRESSION: 1. There is mild pancreatic atrophy and fatty replacement. There is soft tissue stranding present at the head of the pancreas. Focal pancreatitis cannot be excluded. Is best demonstrated on images 26 through 28 axial series 4. 2. There is mild thickening of the distal esophageal wall. Consider esophagitis. 3. There is thickening of the gastric wall with edema.There are fluid-filled loops of small bowel with air-fluid levels. There is bowel wall thickening and inflammatory changes. No evidence of obstruction. Findings are consistent with acute gastroenteritis. 4. Hepatic steatosis 5. There is a contour abnormality present within the mid to upper pole of the right kidney. A mass cannot be excluded. This may represent an area of prior infection or infarction.This was not present on the prior study of 09/28/2020. Dictated and Authenticated by: Tree Flores MD. Ordering:MILAGRO Mccann MD
[2024-02-03] MEDS: Magnesium Oxide 400 MG TAB 800 MG PO (23:53)
[2024-02-03] MEDS: Potassium Chloride 20 MEQ TABCR 40 MEQ PO (23:53)
== END 2024-02-04 | disposition home or self-care (01) ==
PROVIDERS: Emergency Provider Physician Assistant; PCP Family Medicine
DX: E87.1 Hypo-osmolality and hyponatremia (principal); E87.6 Hypokalemia; E83.42 Hypomagnesemia; R07.9 Chest pain, unspecified; K52.9 Noninfective gastroenteritis and colitis, unspecified; K29.70 Gastritis, unspecified, without bleeding
CPT/HCPCS: 36415; 80048; 80053; 80076; 83690; 93005; 96365; 96375; 99285; 74177; 81003; 81015; 83735; 84484; 85025; 93010; 99283; J2270; J3490

== ENCOUNTER 2024-02-12 10:24 | Outpatient (CLI) | payer MEDICARE, SELFPAY ==
[2024-02-12 12:52] LABS: Anion Gap 12.4 mmol/L (3-11); BUN 16 mg/dL (7-18); CO2 27.6 mmol/L (21.0-32.0); CREATININE 0.8 mg/dL (0.55-1.02); Calcium 10.4 mg/dL (8.5-10.1); Chloride 98 mmol/L (98-107); Estimated GFR 78.72 (mL/min/1.73m2); Glucose 106 mg/dL (74-106); Magnesium 1.9 mg/dL (1.8-2.4); Sodium 138 mmol/L (136-145); TROPONIN-I 10.9 ug/mL (4.0-12.0)
== END 2024-02-12 10:25 | disposition home or self-care (01) ==
LOC: LOS 10:25
PROVIDERS: PCP Family Medicine; Visit Provider Family Medicine
DX: E87.6 Hypokalemia (principal); E83.42 Hypomagnesemia; R56.9 Unspecified convulsions
CPT/HCPCS: 36415; 80048; 80156; 83735

== ENCOUNTER 2024-11-12 20:00 | Emergency (ER) | payer MEDICARE, SELFPAY ==
[2024-11-12 20:10] VITALS: BP 179/95; PULSE 82; RESP 18; TEMP 36.8; O2SAT 99
--- NOTE | 2024-11-12 21:22 | ED.GENADUL_ITS ---
Discharge Plan Disposition Patient Disposition: Home Condition: Stable Discharge Details Clinical Impression: Cervical paraspinal muscle spasm Primary Care Provider: Racquel Nevarez ED Provider: Xiang Rand Home Meds and New Rx's Prescriptions: New ketorolac 10 mg tablet 10 mg PO QID 4 Days Qty: 16 0RF Rx Instructions: maximum total duration of 5 days from all oral, intranasal, or parenteral formulations Continued Caltrate 600 plus D 600 mg (1,500 mg)-800 unit tablet,chewable 1 tab PO DAILY ascorbic acid (vitamin C) 500 mg tablet 500 mg PO DAILY chlorpheniramine maleate [Aller-Chlor] 4 mg tablet 4 mg PO Q8H PRN carbamazepine [Carbatrol] 300 mg capsule, ER multiphase 12 hr 300 mg PO BID Qty: 180 5RF simethicone 250 mg capsule 250 mg PO DAILY acetaminophen [Tylenol Arthritis Pain] 650 mg tablet extended release 650 mg PO Q12H aspirin 81 mg tablet,chewable 81 mg PO DAILY albuterol sulfate 90 mcg/actuation HFA aerosol inhaler 2 puff inhalation QID PRN (Reason: shortness of breath or wheezing) Qty: 8.5 5RF estradiol 0.01 % (0.1 mg/gram) cream 2 g VG Q48H Qty: 42.5 12RF fluticasone propionate 50 mcg/actuation spray,suspension 2 spray intranasal DAILY 90 Days Qty: 48 4RF Rx Instructions: administer into each nostril One Daily Plus Minerals 1 EACH tablet 1 ea PO DAILY vitamin E 400 UNIT capsule 1 cap PO DAILY tizanidine 2 mg capsule 2 mg PO TID PRN (Reason: muscle spasticity) Qty: 30 0RF tizanidine 2 mg capsule 2 mg PO TID PRN (Reason: muscle spasticity) Qty: 30 0RF No Action prednisone 20 mg tablet See Rx Instructions PO DAILY Qty: 11 0RF Rx Instructions: 2 tabs daily for 3 days; 1 tab daily for 3 days; 0.5 tab daily for 4 days diclofenac sodium 3 % gel 1 applic topical BID PRN (Reason: pain) 7 Days Qty: 100 0RF Rx Instructions: Apply to affected area twice daily as needed for pain oxycodone 5 mg capsule 5 mg PO Q8H PRN (Reason: pain) Qty: 6 0RF Rx Instructions: Take 1 capsule by mouth every 8 hours as needed for moderate to severe pain. Please take with food and no driving or operating heavy machinery while on this medication. Discharge Instructions Instructions: Ketorolac (Systemic), Baclofen, Muscle Spasm ED Additional Instructions: You were seen in the emergency department for your cervical paraspinal muscle strain/spasm, please continue taking 1000 mg of Tylenol 3 times per day, I have given you an IM dose of Toradol this evening and sent you a 4-day prescription for this, after the 4-day prescription is up please return to [facility]. I have sent you home with a couple tablets of baclofen to try, I do not feel you need any imaging at this time, please follow-up with your primary care provider or visit with orthopedics if you continue to have persistent pain, try to book a massage and apply heat and ice to the area in alternating fashion, please return for any complete numbness to the arm or motor weakness. Referrals: [facility] [Provider Group] Racquel Nevarez MD, [place] [Primary Care Provider] - Discharge Data Discharge Date/Time-TO BE ENTERED AT DEPARTURE: 11/12/24 22:21 HPI General Date/Time Provider Initiated Documentation: 11/12/24 21:01 . HPI Narrative: 74 year-old female presents to ED today by POV/ambulating with her with a chief complaint of R arm pain, from picking up her grandchild one week ago, no trauma. Quality described as intermittent tingling in the trapezius/scalenes area radiating down the R arm. Patient is R-hand dominant, no radiation to inability to move R arm, midline neck pain, pulsatile tinnitus, chest pain, shortness of breath. Severity is described as moderate. Palliating factors include OTC analgesics with some relief. Provoking factors include nothing specific. Patient not anticoagulated. Related Data Home Medications ?Medication ?Instructions ?Recorded ?Confirmed multivitamin with minerals (One 1 ea PO DAILY 01/25/13 11/15/24 Daily Plus Minerals tablet) vitamin E 268 mg (400 unit) capsule 1 cap PO DAILY 02/04/13 11/15/24 ascorbic acid (vitamin C) 500 mg 500 mg PO DAILY 07/10/18 11/15/24 tablet calcium 600 mg (as carbonate)-vit 1 tab PO DAILY 07/10/18 11/15/24 D3 20 mcg (800 unit) chewable tablet (Caltrate plus D) chlorpheniramine maleate 4 mg 4 mg PO Q8H PRN 07/15/19 11/15/24 tablet (Aller-Chlor) Carbatrol 300 mg capsule, extended 300 mg PO BID #180 tab-caps 08/11/20 11/15/24 release (carbamazepine) acetaminophen 650 mg 650 mg PO Q12H 01/18/21 11/15/24 tablet,extended release (Tylenol Arthritis Pain) simethicone 250 mg capsule 250 mg PO DAILY 06/23/22 11/15/24 aspirin 81 mg chewable tablet 81 mg PO DAILY 01/17/23 11/15/24 albuterol sulfate 90 mcg/actuation 2 puff inhalation QID PRN 07/13/23 11/15/24 aerosol inhaler shortness of breath or wheezing #8.5 grams tizanidine 2 mg capsule 2 mg PO TID PRN muscle spasticity 11/06/23 11/15/24 #30 caps fluticasone propionate 50 2 spray intranasal DAILY 90 days 11/21/23 11/15/24 mcg/actuation nasal #48 grams spray,suspension estradiol 0.01% (0.1 mg/gram) 2 g vaginal Q48H #42.5 grams 08/12/24 11/15/24 vaginal cream tizanidine 2 mg capsule 2 mg PO TID PRN muscle spasticity 10/11/24 11/15/24 #30 caps ketorolac 10 mg tablet 10 mg PO QID 4 days #16 tabs 11/12/24 11/15/24 diclofenac sodium 3 % topical gel 1 applic topical BID PRN pain 7 11/15/24 days #100 grams oxycodone 5 mg capsule 5 mg PO Q8H PRN pain #6 caps 11/15/24 prednisone 20 mg tablet See Rx Instructions PO DAILY #11 11/15/24 tabs Previous Rx's ?Medication ?Instructions ?Recorded Carbatrol 300 mg capsule, extended 300 mg PO BID #180 tab-caps 08/11/20 release (carbamazepine) albuterol sulfate 90 mcg/actuation 2 puff inhalation QID PRN 07/13/23 aerosol inhaler shortness of breath or wheezing #8.5 grams tizanidine 2 mg capsule 2 mg PO TID PRN muscle spasticity 11/06/23 #30 caps fluticasone propionate 50 2 spray intranasal DAILY 90 days 11/21/23 mcg/actuation nasal #48 grams spray,suspension estradiol 0.01% (0.1 mg/gram) 2 g vaginal Q48H #42.5 grams 08/12/24 vaginal cream tizanidine 2 mg capsule 2 mg PO TID PRN muscle spasticity 10/11/24 #30 caps ketorolac 10 mg tablet 10 mg PO QID 4 days #16 tabs 11/12/24 diclofenac sodium 3 % topical gel 1 applic topical BID PRN pain 7 11/15/24 days #100 grams oxycodone 5 mg capsule 5 mg PO Q8H PRN pain #6 caps 11/15/24 prednisone 20 mg tablet See Rx Instructions PO DAILY #11 11/15/24 tabs Allergies Allergy/AdvReac Type Severity Reaction Status Date / Time alprazolam AdvReac Unknown pt.states Verified 11/15/24 07:51 it made me loopy amoxicillin (From Augmentin) AdvReac Diarrhea Verified 11/15/24 07:51 clavulanic acid (From AdvReac Diarrhea Verified 11/15/24 07:51 Augmentin) erythromycin base AdvReac Diarrhea Verified 11/15/24 07:51 General Stated Complaint: Orthopedic LORENZO: 4 Review of Systems All systems reviewed & are unremarkable except as noted in HPI and below Exam Narrative Exam Narrative: GENERAL APPEARANCE: Well-nourished, non-toxic, awake and alert, atraumatic, no acute distress. SKIN: Warm, pink, dry, intact, without rashes/lesions/ulcerations. HEAD: Normocephalic, atraumatic, normal hair distribution for gender/age. EYES: Normal conjunctiva, no exudates on lids/lashes. ENT: Nares patent, no circumoral cyanosis, no facial swelling NECK: Supple, trachea midline, painless cervical ROM. LUNGS/CHEST: Non-labored respirations, normal A/P diameter, symmetrical expansion, no chest wall deformity HEART (CV/PV): Regular rate, no peripheral edema, no JVD. ABDOMEN: Soft, non-distended, no guarding. MSK: Normal ROM, no swelling/deformity to bilateral UEs or LEs, moving all extremities without weakness, no cyanosis, spine midline without tenderness, normal curvature, palpable tenderness and tension in the right trapezius muscle and muscle trigger point, neurovascularly intact in the right upper extremity, radiology ct technologist strength 5/5, right radial pulse 2+, no midline cervical vertebral tenderness/crepitus/step-offs, special tests of the shoulder negative for rotator cuff arthropathy- speeds/empty can negative NEURO: Mental Status AAOx4 - alert to person, place, time, events No facial droop, no forehead involvement. Motor: No focal weakness - strength 5/5 in bilateral UEs and LEs, proximal and distal, symmetric. Sensory: sensation intact to light touch globally. Gait normal: patient ambulated without ataxia into ED room. PSYCH: euthymic, cooperative, pleasant, appropriate speech Course Vital Signs Vital signs: Vital Signs Temperature 36.8 C 11/12/24 20:10 Pulse 82 11/12/24 20:10 Respiratory Rate 18 11/12/24 20:10 Blood Pressure 179/95 H 11/12/24 20:10 Pulse Oximetry 99 11/12/24 20:10 Temperature 36.8 C 11/12/24 20:10 Pulse 82 11/12/24 20:10 Respiratory Rate 18 11/12/24 20:10 Blood Pressure 179/95 H 11/12/24 20:10 Pulse Oximetry 99 11/12/24 20:10 Pain Level 10 11/12/24 20:10 Medical Decision Making This dictation utilizes [id number] dictation software and may contain unedited grammatical errors. 74 year-old female presents to ED today by POV/ambulating with her with a chief complaint of R arm pain, from picking up her grandchild one week ago, no trauma. Quality described as intermittent tingling in the trapezius/scalenes area radiating down the R arm. Patient is R-hand dominant, no radiation to inability to move R arm, midline neck pain, pulsatile tinnitus, chest pain, shortness of breath. Severity is described as moderate. Palliating factors include OTC analgesics with some relief. Provoking factors include nothing specific. Patients' medical history: A-fib/flutter, osteopenia. Family and social history: Noncontributory, eats a good diet gets good exercise, no illicit drug use. Pertinent exam findings / vital signs include palpable tenderness and tension in the right trapezius muscle and muscle trigger point, neurovascularly intact in the right upper extremity, radiology ct technologist strength 5/5, right radial pulse 2+, no midline cervical vertebral tenderness/crepitus/step-offs, special tests of the shoulder negative for rotator cuff arthropathy. Differential / pathologies of concern include muscle spasm, strain/sprain, rotator cuff arthropathy, not fracture/trauma. Diagnostic studies of: -none. Interventions of: -IM Toradol, 1g PO tylenol, Lidoderm patch, trial of baclofen. ED Course/Assessment/Plan: 74-year-old female having persistent right lateral neck and right arm. After injuring herself picking up her grandson a week ago. Is not resolving with conservative management, I counseled the likely need for gentle massage, trial of brief muscle relaxers, IM Toradol and continue NSAIDs, recommend she follow- up with orthopedics, return criteria for signs of neurovascular compromise. Findings not consistent with fracture or neurovascular compromise. Disposition of Cervical Paraspinal Muscle Spasm. Patient verbalized understanding of the plan and return to ED criteria and engaged in shared decision making. Medical Records Medical records reviewed: Yes I reviewed the patient's medical records. 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 Has not had a seizure since. Surgical History S/P bilateral oophorectomy S/P appendectomy H/O section H/O arthroscopy of left knee 07/24/02 Skin Cancer Removal 09/25/17 LEFT FOREHEAD (BASAL CELL) Colonoscopy - [facility] [place] 2007;[facility] Family History Mother , AGE 77 Multiple myeloma Father , AGE 85 Heart disease CHF Prostate cancer Sister , age 56 Essential hypertension Glioblastoma Sister No problems noted. Brother No problems noted. Paternal Grandfather , AGE 74 Heart disease Maternal Grandmother , BLOOD CLOT at age 59. No problems noted. Paternal Grandmother , KIDNEY DISEASE at age 41. No problems noted. Uncle Bone cancer Son Glioblastoma Son No problems noted. Daughter No problems noted. Maternal Grandfather , age 68 No problems noted. Social History Smoking/Tobacco Use Status: Never Second Hand Exposure: Yes (growing up) Smoking risk assessment performed?: Yes Alcohol Intake: current Alcohol Intake frequency: a few times a week Alcohol type: beer and wine Drug use: Never Substance use type: does not use Counseling given: No Counseling provided: none Adopted: No Caregiver/Support person: No Foster care: No Household members: spouse Housing: house Number of Children: 3 number of grandchildren: 2 Communication Needs: None Education Level: college current occupation: retired Pets and animals: No Sexually active: Yes Do you think of yourself as: straight/heterosexual Current gender identity: female What is your relationship status?: How often do you talk on the phone with friends or family?: three or more times per week How often do you get together with friends or relatives?: decline to answer How often do you attend lutheran or oriental orthodox services?: decline to answer Do you belong to any clubs or organized social groups?: decline to answer Panel score (0-1 are the most socially isolated patients): 2 What type of physical activity do you participate in: walking and other Details: recumbent bike Frequency: daily Lurdes/Tenriism: None Special lurdes needs: No Agree to transfusion: Yes Seatbelt use: always Drive intox or ride w/intox cart driver: No Working smoke detector in home: Yes Carbon monox detector in home: Yes Firearms in home: No Do you feel safe at home: Yes Do you feel safe in your relationship?: Yes Victim of physical abuse: No Victim of emotional abuse: No Victim of sexual abuse: No
[2024-11-12] MEDS: Lidocaine 5% Patch 1 PATCH TP (22:04)
[2024-11-12] MEDS: Ketorolac 30 MG/ML VIAL IM (22:05)
[2024-11-12] MEDS: Acetaminophen 500 MG TAB 1000 MG PO (22:05)
[2024-11-12] MEDS: Baclofen 10 MG TAB PO (22:08)
[2024-11-12] MEDS: Baclofen 10 MG TAB 30 MG PO (22:17)
[2024-11-12 22:18] VITALS: BP 190/80; PULSE 70; RESP 17; TEMP 36.7; O2SAT 96
== END 2024-11-12 22:21 | disposition home or self-care (01) ==
PROVIDERS: Emergency Provider Physician Assistant; PCP Family Medicine
DX: M62.838 Other muscle spasm (principal)
CPT/HCPCS: 99283; 99284; 96372; J1885

== ENCOUNTER 2024-11-15 07:44 | Emergency (ER) | payer MEDICARE, SELFPAY ==
[2024-11-15 07:48] VITALS: BP 205/84; PULSE 79; RESP 18; O2SAT 97
--- NOTE | 2024-11-15 08:00 | DI.RAD_ITS ---
Exam(s) XR CERVICAL SP BOUDREAUX TRAUMA 2-3V EXAM: XR CERVICAL SP BOUDREAUX TRAUMA 2-3V CLINICAL HISTORY: Shoulder pain. TECHNIQUE: 2D digital imaging was performed. COMPARISON: No exams were available for comparison FINDINGS: 3 views No evidence of acute fracture, listhesis nor offset of the spinal laminar line. There is reversal normal curvature which appears to be related to chronic advanced disc space narrowi ng of degenerative disc disease at C5-6 level and there is also disc space narrowing at C6-7 level. There is no facet malalignment evident. No prevertebral soft tissue swelling. IMPRESSION: Multilevel chronic degenerative disc disease. No acute fractures. DATA REPOSITORY: RADIATION DOSE DELIVERED:
--- NOTE | 2024-11-15 08:00 | DI.RAD_ITS ---
Exam(s) XR SHOULDER RT COMPLETE 2+V EXAM: XR SHOULDER RT COMPLETE 2+V CLINICAL HISTORY: Right shoulder, clavicle pain. TECHNIQUE: 2D digital imaging was performed. COMPARISON: No exams were available for comparison FINDINGS: Four views There is no evidence of fracture or dislocation and no abnormal soft tissue calcifications. The suba cromial space appears unremarkable. There are no obvious degenerative changes in the glenohumeral ariane int and only minimal degenerative changes in the acromioclavicular joint. Clavicle and scapula appea r intact as do adjacent ribs. IMPRESSION: No significant radiograph findings in the right shoulder. DATA REPOSITORY: RADIATION DOSE DELIVERED:
--- NOTE | 2024-11-15 08:13 | W.ED.GENAD ---
Discharge Plan Disposition Patient Disposition: Home Condition: Stable Discharge Details Clinical Impression: Cervical radiculopathy due to degenerative joint disease of spine Primary Care Provider: Racquel Nevarez ED Provider: Padmini Bailon Home Meds and New Rx's Prescriptions: New diclofenac sodium 3 % gel 1 applic topical BID PRN (Reason: pain) 7 Days Qty: 100 0RF Rx Instructions: Apply to affected area twice daily as needed for pain oxycodone 5 mg capsule 5 mg PO Q8H PRN (Reason: pain) Qty: 6 0RF Rx Instructions: Take 1 capsule by mouth every 8 hours as needed for moderate to severe pain. Please take with food and no driving or operating heavy machinery while on this medication. Continued Caltrate 600 plus D 600 mg (1,500 mg)-800 unit tablet,chewable 1 tab PO DAILY ascorbic acid (vitamin C) 500 mg tablet 500 mg PO DAILY chlorpheniramine maleate [Aller-Chlor] 4 mg tablet 4 mg PO Q8H PRN carbamazepine [Carbatrol] 300 mg capsule, ER multiphase 12 hr 300 mg PO BID Qty: 180 5RF simethicone 250 mg capsule 250 mg PO DAILY acetaminophen [Tylenol Arthritis Pain] 650 mg tablet extended release 650 mg PO Q12H aspirin 81 mg tablet,chewable 81 mg PO DAILY albuterol sulfate 90 mcg/actuation HFA aerosol inhaler 2 puff inhalation QID PRN (Reason: shortness of breath or wheezing) Qty: 8.5 5RF estradiol 0.01 % (0.1 mg/gram) cream 2 g VG Q48H Qty: 42.5 12RF fluticasone propionate 50 mcg/actuation spray,suspension 2 spray intranasal DAILY 90 Days Qty: 48 4RF Rx Instructions: administer into each nostril One Daily Plus Minerals 1 EACH tablet 1 ea PO DAILY vitamin E 400 UNIT capsule 1 cap PO DAILY tizanidine 2 mg capsule 2 mg PO TID PRN (Reason: muscle spasticity) Qty: 30 0RF tizanidine 2 mg capsule 2 mg PO TID PRN (Reason: muscle spasticity) Qty: 30 0RF ketorolac 10 mg tablet 10 mg PO QID 4 Days Qty: 16 0RF Rx Instructions: maximum total duration of 5 days from all oral, intranasal, or parenteral formulations Discharge Instructions Instructions: Radiculopathy (DC) Additional Instructions: X-ray shows some degenerative joint disease of your cervical spine or your neck. This can cause pinched nerves and nerve pain to radiate down into your arm. You probably also exacerbated this with the lifting you did approximately a week ago. The shoulder x-ray was within normal limits. Please take the medications as directed a prescription for topical diclofenac gel was sent to the pharmacy on file along with oxycodone. Take this with food and no driving it may make you sleepy. Referral for physical therapy was also placed. Follow up with primary care provider in 3-5 days. Return to ED sooner if any worsening or concerns. Thank you for allowing us to care for you today. Stand Alone Forms: Physical Therapy Referral Referrals: Racquel Nevarez MD, [place] [Primary Care Provider] - 5 days Discharge Data Discharge Date/Time-TO BE ENTERED AT DEPARTURE: 11/15/24 09:09 HPI General Mode of arrival: ambulatory. Date/Time Provider Initiated Documentation: 11/15/24 07:47. Limitations to Documentation: no limitations. Information obtained by: patient, RN notes reviewed and old records reviewed. HPI Narrative: 74-year-old female presents to the ER with a chief complaint of right clavicle and shoulder pain which has been ongoing since Monday. Patient was seen here in the emergency department was prescribed Toradol. She reports approximately a week ago she did lift her granddaughter and may have strained her arm at that time. Denies any falls or injuries. Distal CMS is intact. She does have a lidocaine patch on at this time. Denies any other associated symptoms no fever chills. Past medical history includes seizure neoplasm skin endometrium thickening, surgical history includes oophorectomy appendectomy. She has been taking tizanidine for muscle relaxation and Toradol along with Tylenol with little to no relief. Related Data Home Medications ?Medication ?Instructions ?Recorded ?Confirmed multivitamin with minerals (One 1 ea PO DAILY 01/25/13 11/15/24 Daily Plus Minerals tablet) vitamin E 268 mg (400 unit) capsule 1 cap PO DAILY 02/04/13 11/15/24 ascorbic acid (vitamin C) 500 mg 500 mg PO DAILY 07/10/18 11/15/24 tablet calcium 600 mg (as carbonate)-vit 1 tab PO DAILY 07/10/18 11/15/24 D3 20 mcg (800 unit) chewable tablet (Caltrate plus D) chlorpheniramine maleate 4 mg 4 mg PO Q8H PRN 07/15/19 11/15/24 tablet (Aller-Chlor) Carbatrol 300 mg capsule, extended 300 mg PO BID #180 tab-caps 08/11/20 11/15/24 release (carbamazepine) acetaminophen 650 mg 650 mg PO Q12H 01/18/21 11/15/24 tablet,extended release (Tylenol Arthritis Pain) simethicone 250 mg capsule 250 mg PO DAILY 06/23/22 11/15/24 aspirin 81 mg chewable tablet 81 mg PO DAILY 01/17/23 11/15/24 albuterol sulfate 90 mcg/actuation 2 puff inhalation QID PRN 07/13/23 11/15/24 aerosol inhaler shortness of breath or wheezing #8.5 grams tizanidine 2 mg capsule 2 mg PO TID PRN muscle spasticity 11/06/23 11/15/24 #30 caps fluticasone propionate 50 2 spray intranasal DAILY 90 days 11/21/23 11/15/24 mcg/actuation nasal #48 grams spray,suspension estradiol 0.01% (0.1 mg/gram) 2 g vaginal Q48H #42.5 grams 08/12/24 11/15/24 vaginal cream tizanidine 2 mg capsule 2 mg PO TID PRN muscle spasticity 10/11/24 11/15/24 #30 caps ketorolac 10 mg tablet 10 mg PO QID 4 days #16 tabs 11/12/24 11/15/24 diclofenac sodium 3 % topical gel 1 applic topical BID PRN pain 7 11/15/24 days #100 grams oxycodone 5 mg capsule 5 mg PO Q8H PRN pain #6 caps 11/15/24 Previous Rx's ?Medication ?Instructions ?Recorded Carbatrol 300 mg capsule, extended 300 mg PO BID #180 tab-caps 08/11/20 release (carbamazepine) albuterol sulfate 90 mcg/actuation 2 puff inhalation QID PRN 07/13/23 aerosol inhaler shortness of breath or wheezing #8.5 grams tizanidine 2 mg capsule 2 mg PO TID PRN muscle spasticity 11/06/23 #30 caps fluticasone propionate 50 2 spray intranasal DAILY 90 days 04/30/24 mcg/actuation nasal #48 grams spray,suspension estradiol 0.01% (0.1 mg/gram) 2 g vaginal Q48H #42.5 grams 08/12/24 vaginal cream tizanidine 2 mg capsule 2 mg PO TID PRN muscle spasticity 10/11/24 #30 caps ketorolac 10 mg tablet 10 mg PO QID 4 days #16 tabs 11/12/24 diclofenac sodium 3 % topical gel 1 applic topical BID PRN pain 7 11/15/24 days #100 grams oxycodone 5 mg capsule 5 mg PO Q8H PRN pain #6 caps 11/15/24 Allergies Allergy/AdvReac Type Severity Reaction Status Date / Time alprazolam AdvReac Unknown pt.states Verified 11/15/24 07:51 it made me loopy amoxicillin (From Augmentin) AdvReac Diarrhea Verified 11/15/24 07:51 clavulanic acid (From AdvReac Diarrhea Verified 11/15/24 07:51 Augmentin) erythromycin base AdvReac Diarrhea Verified 11/15/24 07:51 General Stated Complaint: Orthopedic LORENZO: 4 Review of Systems All systems reviewed & are unremarkable except as noted in HPI and below Musculoskeletal Musculoskeletal: Reports as per HPI, Reports arthralgias and Reports radiating pain into limb Exam Narrative Exam Narrative: Constitutional: Alert and oriented x3. Appears stated age. Normal body habitus. Head: Normocephalic, no trauma. Chest: RRR, Normal S1, S2, distal pulses intact. Resp: Lungs clear to auscultation bilaterally, no wheezes, rales, or rhonchi. Musculoskeletal: Normal gait, Moves all 4 extremities without difficulty. Distal CMS intact, cap refill less than 2 seconds. Skin: No suspicious rashes or lesions. Capillary refill less than 2 sec. Course Vital Signs Vital signs: Vital Signs Pulse 79 11/15/24 07:48 Respiratory Rate 18 11/15/24 07:48 Blood Pressure 205/84 H 11/15/24 07:48 Pulse Oximetry 97 11/15/24 07:48 Pulse 79 11/15/24 07:48 Respiratory Rate 18 11/15/24 07:48 Blood Pressure 205/84 H 11/15/24 07:48 Pulse Oximetry 97 11/15/24 07:48 Oxygen Delivery Method Room Air 11/15/24 07:48 Oxygen Flow Rate 0 11/15/24 07:48 Medical Decision Making 74-year-old female presents to the ER with a chief complaint of right clavicle and shoulder pain which has been ongoing since Monday. Patient was seen here in the emergency department was prescribed Toradol. She reports approximately a week ago she did lift her granddaughter and may have strained her arm at that time. Denies any falls or injuries. Distal CMS is intact. She does have a lidocaine patch on at this time. Denies any other associated symptoms no fever chills. Past medical history includes seizure neoplasm skin endometrium thickening, surgical history includes oophorectomy appendectomy. She has been taking tizanidine for muscle relaxation and Toradol along with Tylenol with little to no relief. X-ray of C-spine and right shoulder ordered. 5 mg oxycodone. Differential diagnose includes but limited to muscle strain, osteoarthritis, nerve pain. X-ray of shoulder and clavicle is within normal limits. Cervical spine shows multilevel degenerative changes. Will refer patient to physical therapy and will instruct to continue muscle relaxers and previously prescribed medications. Will also give Diclofenac topical cream. This text was generated using SonarMedation system, please disregard any oddities of phrase or misspellings. Medical Records Medical records reviewed: Yes I reviewed the patient's medical records. Imaging Data Radiologic Study: Imaging: X-Ray Radiologist's impression: XR CERVICAL SP BOUDREAUX TRAUMA 2-3V EXAM: XR CERVICAL SP BOUDREAUX TRAUMA 2-3V CLINICAL HISTORY: Shoulder pain. TECHNIQUE: 2D digital imaging was performed. COMPARISON: No exams were available for comparison FINDINGS: 3 views No evidence of acute fracture, listhesis nor offset of the spinal laminar line. There is reversal normal curvature which appears to be related to chronic advanced disc space narrowing of degenerative disc disease at C5-6 level and there is also disc space narrowing at C6-7 level. There is no facet malalignment evident. No prevertebral soft tissue swelling. IMPRESSION: Multilevel chronic degenerative disc disease. No acute fractures. 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 Has not had a seizure since. Surgical History S/P bilateral oophorectomy S/P appendectomy H/O section H/O arthroscopy of left knee 07/24/02 Skin Cancer Removal 09/25/17 LEFT FOREHEAD (BASAL CELL) [place] [facility] [place] Family History Mother , AGE 77 Multiple myeloma Father , AGE 85 Heart disease CHF Prostate cancer Sister , age 56 Essential hypertension Glioblastoma Sister No problems noted. Brother No problems noted. Paternal Grandfather , AGE 74 Heart disease Maternal Grandmother , BLOOD CLOT at age 59. No problems noted. Paternal Grandmother , KIDNEY DISEASE at age 41. No problems noted. Uncle Bone cancer Son Glioblastoma Son No problems noted. Daughter No problems noted. Maternal Grandfather , age 68 No problems noted. Social History Smoking/Tobacco Use Status: Never Second Hand Exposure: Yes (growing up) Smoking risk assessment performed?: Yes Alcohol Intake: current Alcohol Intake frequency: a few times a week Alcohol type: beer and wine Drug use: Never Substance use type: does not use Counseling given: No Counseling provided: none Adopted: No Caregiver/Support person: No Foster care: No Household members: spouse Housing: house Number of Children: 3 number of grandchildren: 2 Communication Needs: None Education Level: college current occupation: retired Pets and animals: No Sexually active: Yes Do you think of yourself as: straight/heterosexual Current gender identity: female What is your relationship status?: How often do you talk on the phone with friends or family?: three or more times per week How often do you get together with friends or relatives?: decline to answer How often do you attend mu-ism or anglican services?: decline to answer Do you belong to any clubs or organized social groups?: decline to answer Panel score (0-1 are the most socially isolated patients): 2 What type of physical activity do you participate in: walking and other Details: recumbent bike Frequency: daily Lurdes/Gnosticist: None Special lurdes needs: No Agree to transfusion: Yes Seatbelt use: always Drive intox or ride w/intox rear load truck driver: No Working smoke detector in home: Yes Carbon monox detector in home: Yes Firearms in home: No Do you feel safe at home: Yes Do you feel safe in your relationship?: Yes Victim of physical abuse: No Victim of emotional abuse: No Victim of sexual abuse: No
[2024-11-15] MEDS: oxyCODONE 5 MG TAB PO (08:17)
== END 2024-11-15 09:09 | disposition home or self-care (01) ==
PROVIDERS: Emergency Provider Registered Nurse Emergency; PCP Family Medicine
DX: M54.12 Radiculopathy, cervical region (principal)
CPT/HCPCS: 99284; 99283; 72040; 73030

== ENCOUNTER 2024-11-19 13:08 | Outpatient (CLI) | payer MEDICARE, SELFPAY ==
--- NOTE | 2024-11-19 13:00 | DI.RAD_ITS ---
Exam(s) XR THORACIC SPINE COMPLETE EXAM: XR THORACIC SPINE COMPLETE CLINICAL HISTORY: thoracic pain, thoracic back pain M54.6. TECHNIQUE: 2D digital imaging was performed. Three views. COMPARISON: CR XR CERVICAL SP BOUDREAUX TRAUMA 2-3V from 11/15/2024 FINDINGS: BONES: There is no fracture or destructive lesion. The vertebral bodies and posterior elements are un remarkable. ALIGNMENT: Slight dextroscoliosis centered at T7. DISKS: Interverebral disc spaces are maintained. Minimal degenerative changes. SOFT TISSUE: Visualized lungs are clear. IMPRESSION: Mild degenerative changes and mild scoliosis. DATA REPOSITORY: RADIATION DOSE DELIVERED:
--- NOTE | 2024-11-19 13:00 | DI.RAD_ITS ---
Exam(s) XR CHEST 2V PA LATERAL EXAM: XR CHEST 2V PA LATERAL CLINICAL HISTORY: ? pancoast tumor, radicular pain in r arm, M79.2 TECHNIQUE: 2D digital imaging was performed. Two views. COMPARISON: CR XR PORTABLE CHEST AP from 05/26/2022 FINDINGS: HEART: Normal size. Aorta: Not dilated. PULMONARY VASCULATURE: Normal. MEDIASTINUM: Unremarkable. LUNGS: Clear. PLEURAL SPACE: No pleural effusion or pneumothorax. BONE:Unremarkable for age. SOFT TISSUES: Unremarkable. IMPRESSION: No acute abnormality. DATA REPOSITORY: RADIATION DOSE DELIVERED:
== END 2024-11-19 13:28 ==
LOC: DI 13:09
PROVIDERS: PCP Family Medicine; Visit Provider Family Medicine
DX: M51.360 Other intervertebral disc degeneration, lumbar region with discogenic back pain only (principal); M79.2 Neuralgia and neuritis, unspecified
CPT/HCPCS: 71046; 72072

== ENCOUNTER 2024-11-21 14:50 | Outpatient (CLI) | payer MEDICARE, SELFPAY ==
[2024-11-21 14:17] VITALS: PULSE 97; O2SAT 95
[2024-11-21 14:20] VITALS: PULSE 84; O2SAT 98
[2024-11-21 14:30] VITALS: PULSE 82; O2SAT 97
--- NOTE | 2024-11-21 14:33 | PDOC.PAIN ---
Date of service: 11/21/24 Time of Service: 14:34 US Guided Injections Type of Ultrasound Guided Injection: Neck Right Trapezius muscle and Shoulder Right Trigger Point Injection Pre-Procedural Evaluation Pain to the right Trapezius muscle with radiation into the right upper arm Referral Patient has been referred to the [facility] for Right Trapezius muscle Neck Trigger Point Injection for a chief complaint of Right upper shoulder pain with radiation into the right upper arm Pre-Procedural Pain Score Pre-procedural pain score: 10/10 Reason for Exam Right trapezius muscle spasms Patient Interview Patient was interviewed and medical record reviewed: Yes There were no contraindications to performing an US guided procedure. Risks,expected side effects, potential benefits were reviewed. The patient consent form was signed and witnessed. Standard time out procedure was performed. Patient Safety No skin issues to the proposed injection site Procedure Description No sedation given for procedure Patient was placed in the prone position and the following Pulse Ox applied. Pre-Procedure ultrasound scanning performed using a Linear 9 MHz probe Site Preparation Chloroprep Local Anesthesia Skin and subcutaneous tissues anesthetized with: 3 mL of Lidocaine 2%. A 21 G 3.5 Pajunk ultrasound needle was placed under live US guidance using an in-plane approach to the target area. After visualization of the needle tip at the target area Depo-Medrol 40mg per cc and Lidocaine 2% were used. Total of Injectate/Medication Note: 1 cc of Depomedrol and 6 cc of the 2% Lidocaine Negative aspiration for blood. [place] were removed without difficulty. Ultrasound images were captured and stored. Patient Mental Status Patient was alert and awake during procedure Vital Signs Vital signs were stable throughout the procedure and recorded by nursing. Follow Up/Discharge Follow up plans and appointments were discussed with patient. Post procedure instruction was given as documented in nursing documentation. Discharge criteria met and patient discharged from [facility]: Yes Post Procedure Pain Post Procedure Pain: 2/10 Patient tolerated procedure well Procedure Outcome: Successful Non US Guided Injections Procedure Description Patient was placed in the prone position Post Procedure Pain Post Procedure Pain: 2/10 Coding Conscious Sedation used for procedure: No Additional Codes: Visualization of the needle tip - Ultrasound images captured/stored: Yes ([id number]) Date of Service ([id number]) Date of service: 11/21/24
[2024-11-21] MEDS: Nerve Block Tray 1 EACH MC (14:41)
[2024-11-21] MEDS: Lidocaine 2% Pres-Free 5 ML VIAL IJ (14:41)
[2024-11-21] MEDS: methylPREDNISolone ACETATE 40 MG/ML VIAL IJ (14:41)
== END 2024-11-21 14:51 | disposition home or self-care (01) ==
LOC: PC 14:50
PROVIDERS: PCP Family Medicine; Visit Provider Preventive Medicine Occupational Medicine
DX: M25.511 Pain in right shoulder (principal); M79.18 Myalgia, other site; M54.2 Cervicalgia
CPT/HCPCS: 20550; 20552; 76942; J1010

== ENCOUNTER 2024-11-22 01:28 | Outpatient (CLI) | payer MEDICARE, SELFPAY ==
--- NOTE | 2024-11-22 07:00 | DI.MRI_ITS ---
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 COMPARISON: CR XR CERVICAL SP BOUDREAUX TRAUMA 2-3V from 11/15/2024 FINDINGS: BONES: Vertebral body heights are maintained. Some reversal of the normal cervical lordosis at C5-6. Bone marrow signal intensity is within normal limits. CERVICAL CORD: Craniovertebral junction is unremarkable. The cervical cord is normal size and signal intensity. SOFT TISSUES: Unremarkable. C2-3: No disc herniation or bulge is identified. No evidence of neural foraminal narrowing. No signi ficant central canal stenosis. C3-4: Minimal disc bulging no disc herniation identified. No evidence of neural foraminal narrowing. No significant central canal stenosis. C4-5: Mild disc bulging. No disc herniation is identified. No evidence of neural foraminal narrowing . No significant central canal stenosis. C5-6: Moderate loss of disc height. Endplate osteophytes projecting greater anteriorly. No signific ant disc bulging. No disc herniation is identified.Mild right neural foraminal narrowing. No signif icant central canal stenosis. C6-7: No disc herniation or bulge is identified. No evidence of neural foraminal narrowing. No signif icant central canal stenosis. C7-T1: Mild loss disc height. Endplate osteophytes and mild disc bulging. No disc herniation ident ified. No evidence of neural foraminal narrowing. No significant central canal stenosis. IMPRESSION: On degenerative disc changes greatest at C 5 6 where there is mild right neural foraminal narrowing. No evidence of disc herniation at any level. No significant central canal stenosis at any level. DATA REPOSITORY:
== END 2024-11-22 01:48 ==
LOC: DI 01:29
PROVIDERS: PCP Family Medicine; Visit Provider Family Medicine
DX: M47.22 Other spondylosis with radiculopathy, cervical region (principal)
CPT/HCPCS: 72141